=== PATIENT | female | born 1940 | race Caucasian/White ===

== ENCOUNTER 2016-11-22 10:41 | Emergency (ER) | payer OTHER ==
[2016-11-22] MEDS ORDERED: TYLENOL PO ONE (10:57)
[2016-11-22] MEDS ORDERED: DUONEB (A & A) INH ONE (10:57)
--- NOTE | 2016-11-22 10:58 | PROVIDER DOCUMENTATION ---
HPI-Head Injury - General Stated Complaint: FALL ON PORCH CUT ON FOREHEAD Time Seen by Provider: 11/22/16 10:54 Source: patient Allergies/Adverse Reactions: Patient Allergies Allergy/AdvReac Type Severity Reaction Status Date / Time allopurinol Allergy Severe HIVES Verified 04/04/14 20:49 fenofibrate nanocrystallized Allergy Severe HIVES Verified 04/04/14 20:49 * [From Tricor] fenofibrate,micronized * Allergy Severe HIVES Verified 04/04/14 20:49 [From Tricor] morphine Allergy Severe HIVES Verified 04/04/14 20:49 Penicillins Allergy Severe HIVES Verified 04/04/14 20:49 rosuvastatin calcium * Allergy Severe kidney Verified 04/04/14 20:49 [From Crestor] failure aspirin [From Percodan] AdvReac Severe syncope Verified 04/04/14 20:49 hydromorphone HCl * AdvReac Severe hallucinati Verified 04/04/14 20:49 [From Dilaudid] ons oxycodone HCl * AdvReac Severe syncope Verified 04/04/14 20:49 [From Percodan] oxycodone terephthalate * AdvReac Severe syncope Verified 04/04/14 20:49 [From Percodan] atorvastatin calcium * AdvReac kidney Verified 04/05/14 01:40 [From Lipitor] failure Home Medications: Home Medication List Medication Instructions Recorded Confirmed Last Taken Type Alprazolam [Xanax] 0.5 mg PO TID PRN 05/03/14 05/03/14 Unknown History Calcitriol [Rocaltrol] 0.25 microgm PO EVERY OTHER DAY 05/03/14 05/03/14 Unknown History Calcium Carbonate [Tums Calcium 300 mg PO DAILY 05/03/14 05/03/14 Unknown History For Life] Citalopram [Celexa] 20 mg PO DAILY 05/03/14 05/03/14 Unknown History Clotrimazole [Mycelex Kojo] 10 mg .SEE ORDER TID 05/03/14 05/03/14 Unknown History Digoxin [Lanoxin] 125 mcg PO DAILY 05/03/14 05/03/14 Unknown History Febuxostat [Uloric] 40 mg PO DAILY 05/03/14 05/03/14 Unknown History Ferrous Gluconate [Fergon] 240 mg PO DAILY 05/03/14 05/03/14 Unknown History Hydrocodone/Acetaminophen [[place] 1 each PO Q4H PRN 05/03/14 05/03/14 Unknown History 7.5-325 Tablet] Insulin Detemir [Levemir] 20 unit SQ DAILY 05/03/14 05/03/14 Unknown History Insulin Lispro [Humalog] 8 unit SUBQ DIRECTED 05/03/14 05/03/14 Unknown History Ipratropium [place] Neb [Atrovent 0.5 mg INH RTQ6H 05/03/14 05/03/14 Unknown History Neb] Levothyroxine Sodium [Synthroid] 175 mcg PO DAILY 05/03/14 05/03/14 Unknown History Metoprolol [Lopressor] 25 mg PO BID 05/03/14 05/03/14 Unknown History Mirtazapine [Remeron] 15 mg PO HS 05/03/14 05/03/14 Unknown History Omeprazole [Prilosec] 20 mg PO DAILY@0700 05/03/14 05/03/14 Unknown History Polyethylene Glycol 3350 [Miralax] 17 gm PO DAILY 05/03/14 05/03/14 Unknown History Alprazolam [Xanax] 0.5 mg PO Q8H PRN PRN #90 tablet 05/08/14 Unknown Rx Baclofen 10 mg PO QHS #30 tablet 05/08/14 Unknown Rx Calcitriol [Rocaltrol] 0.25 mcg PO BID #0 capsule 05/08/14 Unknown Rx Citalopram [Celexa] 20 mg PO DAILY #30 tablet 05/08/14 Unknown Rx Colchicine [Colcrys] 0.6 mg PO BID #60 tablet 05/08/14 Unknown Rx Digoxin [Lanoxin] 125 mcg PO DAILY #35 tablet 05/08/14 Unknown Rx Febuxostat [Uloric] 40 mg PO DAILY #30 tablet 05/08/14 Unknown Rx Hydrocodone/APAP 7.5 mg/325 mg 1 each PO TID PRN PRN #90 tablet 05/08/14 Unknown Rx [[place]-7.5] Insulin Detemir [Levemir Flexpen] 25 unit SQ DAILY #3 ml 05/08/14 Unknown Rx Ipratropium [place] Neb [Atrovent 0.5 mg INH RTQ4H #0 neb 05/08/14 Unknown Rx Neb] Levofloxacin [Levaquin] 500 mg PO DAILY #3 tablet 05/08/14 Unknown Rx Levothyroxine Sodium [Synthroid] 175 mcg PO DAILY #30 tablet 05/08/14 Unknown Rx Metoprolol [Lopressor] 25 mg PO BID #60 tablet 05/08/14 Unknown Rx Mirtazapine 7.5 mg PO QHS #15 tablet 05/08/14 Unknown Rx Omeprazole [Prilosec] 20 mg PO DAILY@0700 #30 capsule 05/08/14 Unknown Rx - History of Present Illness-Head Injury Nature of Presenting Problem: patient is a 76 y/o F that presents with puncture wound to left brow after tripping this am and falling forward hitting the left side of head. Denies loc, no neck or back pain. Head Injury Location: reports: temporal (left) Other injuries associated with incident:: reports: none Quality of Pain: reports: dull Severity: reports: mild Onset/Duration: reports: abrupt, just prior to arrival Timing: reports: improving Method of Injury: reports: direct blow, fell Any recent trauma/injury?: reports: none Loss of Consciousness: no loss of consciousness Modifying Factors: improves with: nothing Injury Associated Symptoms: reports: headaches, puncture wound. denies: back/ neck pain, chest pain, diaphoresis, dizziness, vomiting, weakness, trouble walking Locality of Occurance: Home Similar Symptoms Previously?: No Recently seen or treated by another doctor?: No Review of Systems - Adult - REVIEW OF SYSTEMS - ADULT Constitutional: denies: chills, fever Eyes: denies: decreased vision, blurred vision, double vision Ears, Nose, Mouth & Throat: denies: ear discharge, ear pain, sinus problem, throat pain, throat swelling Cardiovascular: denies: chest pain, palpitations, syncope Respiratory: denies: cough, shortness of breath, wheezing Gastrointestinal: denies: abdominal pain, diarrhea, nausea, vomiting Genitourinary: reports: no symptoms reported Musculoskeletal: denies: bone pain, joint pain, neck pain Integumentary: reports: see HPI Neurological: reports: no symptoms reported Psychiatric: reports: no symptoms reported Endocrine: reports: no symptoms reported Hematologic/Lymphatic: reports: no symptoms reported Allergic/Immunologic: reports: no symptoms reported All Other Systems: Reviewed and Negative Past History - Adult - PAST MEDICAL HISTORY-ADULT Review of Records: reports: Old Records Reviewed, Nursing Assessment Review, Medications Reviewed Cardiovascular: reports: A-Fib, CHF, HTN Respiratory: reports: COPD Genitourinary: reports: dialysis, kidney disease Endocrine/Immune: reports: Diabetes, thyroid disorder Other Conditions: reports: denies history - PRIOR SURGERIES/PROCEDURES Surgical/Procedure History: reports: cholecystectomy, hysterectomy, , back/neck - IMMUNIZATION STATUS Childhood Immunizations: See Nurse Assessment Flu Vaccine: See Nurse Assessment - FAMILY HISTORY Family History: reviewed, not pertinent - SOCIAL HISTORY Smoking: non-smoker Living Situation: family Physical Exam- Neurological - Physical Exam-Neuro Initial Vital Signs Reviewed: Yes General Appearance: alert, no apparent distress Eye Exam: bilateral eye: normal inspection, PERRL HENMT: moist mucous membranes, normal ENT inspection, TMs normal Head Injury: lacerations. negative: contusions, raccoon eyes, tenderness Neck: non-tender, full range of motion, normal inspection. 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 Exam: normal hearing, normal speech, PERRL Motor/Sensory: no motor deficit, no sensory deficit Neurologic: grossly normal, no motor/sensory deficits Integumentary: warm/dry, other (.5cm puncture wound to left brow) Psych/Mental Status: normal mood/affect, normal thought content, normal thought process, oriented x 3 - Glascow Coma Scale Best Eye Response: (4) open spontaneously Best Verbal Response: (5) oriented Best Motor Response: (6) obeys commands Total Glascow Score: 15 Progress - PLAN OF CARE/RESULTS Progress/Plan/Lab Results: plan of care-labs, meds, ct scans, breathing tx Vital Signs Temp Pulse Resp BP Pulse Ox 11/22/16 12:23 82 160/73 98 11/22/16 11:10 80 160/73 96 11/22/16 10:52 98 F 80 20 160/73 90 L allopurinol Allergy (Severe, Verified 04/04/14 20:49) HIVES fenofibrate nanocrystallized * [From Tricor] Allergy (Severe, Verified 04/04/14 20:49) HIVES fenofibrate,micronized * [From Tricor] Allergy (Severe, Verified 04/04/14 20:49) HIVES morphine Allergy (Severe, Verified 04/04/14 20:49) HIVES Penicillins Allergy (Severe, Verified 04/04/14 20:49) HIVES rosuvastatin calcium * [From Crestor] Allergy (Severe, Verified 04/04/14 20:49) kidney failure aspirin [From Percodan] Adverse Reaction (Severe, Verified 04/04/14 20:49) syncope hydromorphone HCl * [From Dilaudid] Adverse Reaction (Severe, Verified 04/04/14 20:49) hallucinations oxycodone HCl * [From Percodan] Adverse Reaction (Severe, Verified 04/04/14 20: 49) syncope oxycodone terephthalate * [From Percodan] Adverse Reaction (Severe, Verified 20:49) syncope atorvastatin calcium * [From Lipitor] Adverse Reaction (Verified 04/05/14 01:40) kidney failure Alprazolam [Xanax] 0.5 mg PO TID PRN 05/03/14 Calcitriol [Rocaltrol] 0.25 microgm PO EVERY OTHER DAY 05/03/14 Calcium Carbonate [Tums Calcium For Life] 300 mg PO DAILY 05/03/14 Citalopram [Celexa] 20 mg PO DAILY 05/03/14 Clotrimazole [Mycelex Kojo] 10 mg .SEE ORDER TID 05/03/14 Digoxin [Lanoxin] 125 mcg PO DAILY 05/03/14 Febuxostat [Uloric] 40 mg PO DAILY 05/03/14 Ferrous Gluconate [Fergon] 240 mg PO DAILY 05/03/14 Hydrocodone/Acetaminophen [[place] 7.5-325 Tablet] 1 each PO Q4H PRN 05/03/14 Insulin Detemir [Levemir] 20 unit SQ DAILY 05/03/14 Insulin Lispro [Humalog] 8 unit SUBQ DIRECTED 05/03/14 Ipratropium [place] Neb [Atrovent Neb] 0.5 mg INH RTQ6H 05/03/14 Levothyroxine Sodium [Synthroid] 175 mcg PO DAILY 05/03/14 Metoprolol [Lopressor] 25 mg PO BID 05/03/14 Mirtazapine [Remeron] 15 mg PO HS 05/03/14 Omeprazole [Prilosec] 20 mg PO DAILY@0700 05/03/14 Polyethylene Glycol 3350 [Miralax] 17 gm PO DAILY 05/03/14 Alprazolam [Xanax] 0.5 mg PO Q8H PRN PRN #90 tablet 05/08/14 Baclofen 10 mg PO QHS #30 tablet 05/08/14 Calcitriol [Rocaltrol] 0.25 mcg PO BID #0 capsule 05/08/14 Citalopram [Celexa] 20 mg PO DAILY #30 tablet 05/08/14 Colchicine [Colcrys] 0.6 mg PO BID #60 tablet 05/08/14 Digoxin [Lanoxin] 125 mcg PO DAILY #35 tablet 05/08/14 Febuxostat [Uloric] 40 mg PO DAILY #30 tablet 05/08/14 Hydrocodone/APAP 7.5 mg/325 mg [[place]-7.5] 1 each PO TID PRN PRN #90 tablet 11/16 Insulin Detemir [Levemir Flexpen] 25 unit SQ DAILY #3 ml 05/08/14 Ipratropium [place] Neb [Atrovent Neb] 0.5 mg INH RTQ4H #0 neb 05/08/14 Levofloxacin [Levaquin] 500 mg PO DAILY #3 tablet 05/08/14 Levothyroxine Sodium [Synthroid] 175 mcg PO DAILY #30 tablet 05/08/14 Metoprolol [Lopressor] 25 mg PO BID #60 tablet 05/08/14 Mirtazapine 7.5 mg PO QHS #15 tablet 05/08/14 Omeprazole [Prilosec] 20 mg PO DAILY@0700 #30 capsule 05/08/14 Laboratory 11/22/16 11/22/16 11/22/16 12:05 12:05 12:05 WBC RBC Hgb Hct MCV MCH MCHC RDW Std Deviation Plt Count MPV Immature Gran % (Auto) Neut % (Auto) Lymph % (Auto) Grady % (Auto) Eos % (Auto) Baso % (Auto) Immature Gran # (Auto) Neut # (Auto) Lymph # (Auto) Grady # (Auto) Eos # (Auto) Baso # (Auto) PT 10.9 INR 1.03 PTT (Actin FS) 26.7 Sodium 132 L Potassium 4.8 Chloride 93 L Carbon Dioxide 25 Anion Gap 14 BUN 37 H Creatinine 3.1 H Estimated GFR/1.73 m2 15 BUN/Creatinine Ratio 12 Glucose 371 H Calculated Osmolality 288 Calcium 8.3 L Total Bilirubin 0.25 AST 23 ALT 23 Alkaline Phosphatase 167 H Creatine Kinase 85 Troponin T 0.048 Total Protein 6.2 L Albumin 3.6 Globulin 2.6 Albumin/Globulin Ratio 1.4 11/22/16 12:05 WBC 4.03 L RBC 3.43 L Hgb 10.5 L Hct 32.8 L MCV 95.6 MCH 30.6 MCHC 32.0 L RDW Std Deviation 13.0 Plt Count 181 MPV 10.1 Immature Gran % (Auto) 1.2 H Neut % (Auto) 61.1 Lymph % (Auto) 26.3 Grady % (Auto) 7.7 Eos % (Auto) 3.2 Baso % (Auto) 0.5 Immature Gran # (Auto) 0.05 H Neut # (Auto) 2.46 Lymph # (Auto) 1.06 L Grady # (Auto) 0.31 Eos # (Auto) 0.13 Baso # (Auto) 0.02 PT INR PTT (Actin FS) Sodium Potassium Chloride Carbon Dioxide Anion Gap BUN Creatinine Estimated GFR/1.73 m2 BUN/Creatinine Ratio Glucose Calculated Osmolality Calcium Total Bilirubin AST ALT Alkaline Phosphatase Creatine Kinase Troponin T Total Protein Albumin Globulin Albumin/Globulin Ratio Orders Category Date Time Status Cardiac Monitoring DIRECTED Care 11/22/16 10:55 Active Finger Stick Blood Sugar (ED) DIRECTED Care 11/22/16 10:55 Active Oxygen Therapy- ED Nursing DIRECTED Care 11/22/16 10:55 Active Saline Loc NOW Care 11/22/16 10:55 Active CHEST-2 VIEWS [RAD] Stat Exams 11/22/16 12:30 Taken HEAD/C-SPINE W/O CONTRAST [CT] Stat Exams 11/22/16 10:56 Taken LUMBAR SPINE W/O CONTRAST [CT] Stat Exams 11/22/16 10:56 Draft PELVIS W/O CONTRAST [CT] Stat Exams 11/22/16 10:57 Draft CBC WITH ELECTRONIC DIFF [HEME] Stat Lab 11/22/16 12:05 Completed CK PROFILE [SP CHEM] Stat Lab 11/22/16 12:05 Completed COMPREHENSIVE METABOLIC PANEL [CHEM] Stat Lab 11/22/16 12:05 Completed PROTIME WITH INR [COAG] Stat Lab 11/22/16 12:05 Completed PTT [COAG] Stat Lab 11/22/16 12:05 Completed TROPONIN T Stat Lab 11/22/16 12:05 Completed Acetaminophen [Tylenol] Med 11/22/16 10:57 Discontinued 650 mg PO NOW ONE Albuterol 2.5MG/Ipratrop 0.5MG [Duoneb (A & A)] Med 11/22/16 10:57 Discontinued 3 ml INH NOW ONE Aerosol Treatments Routine Oth 11/22/16 10:57 Active Aerosol Treatments Stat Oth 11/22/16 10:57 Active Pulse Oximetry Stat Oth 11/22/16 10:55 Active EKG [EKG] Stat Ther 11/22/16 10:55 Draft - EKG 1 Time of EKG reading by physician:: 12:23 EKG Read and Signed by:: John Taylor EKG Interpretation (*Must complete 3 of following elements*): Abnormal Rate: 79 Rhythm: NSR Maidens: normal QRS: normal DC Interval: normal ST Wave: non-specific ST changes - XRAY 1 XRAY Study: Chest Impression: Normal XRAY Interpretation: nad - CT/MRI 1 CT Study: Cervical Spine, Head Impression: Normal CT Results: nad 2 CT Study: Lumbar Spine Impression: Normal CT Results: nad 3 CT Study: Pelvis Impression: Normal CT Results: nad Departure - Departure Time of Disposition Order: 13:02 DIAGNOSIS: Puncture wound Fall on same level Qualifiers: Encounter type: initial encounter Qualified Code(s): W18.30XA - Fall on same level, unspecified, initial encounter Head injury, acute, without loss of consciousness Qualifiers: Encounter type: initial encounter Qualified Code(s): S09.90XA - Unspecified injury of head, initial encounter Low back pain Qualifiers: Chronicity: acute Back pain laterality: midline Sciatica presence: without sciatica Qualified Code(s): M54.5 - Low back pain Disposition: HOME 01 Certified Medical Emergency: Emergent Condition: Stable Additional Instructions: ED Follow Up Instructions: You have been treated by a care provider in the Emergency Department. These instructions are being provided to you so you can have an understanding of how to care for yourself upon discharge. Upon discharge from the Emergency Department, you are responsible for making arrangements for follow-up care by a physician of your choice. Take all prescribed medications as directed. Return to the Emergency Department immediately for any new or worsening symptoms. You may call the Physician Referral phone number at [phone] to obtain a list of Physicians who are taking new patients. Referrals: None,PCP [Primary Care Provider] - Mary Iqbal MD [STAFF PHYSICIAN] - Call for Appoint. 1-2days Instructions: Fall Prevention and Home Safety, [id number], Head Injury, Adult , Back Pain, Adult, Puncture Wound, [id number] Attestation - Scribe Verification/Attestation Scribe:: Landon Tomlinson Acting as Scribe for:: John Taylor Scribe documention review:: This chart was documented by a scribe and accurately reflects the service the provider performed and the decisions made by the provider. Physician Attestation - Physician Attestation I, the provider, attest to the following statement:: John Taylor Physician documentation Attestation:: This documentation recorded by the scribe accurately reflects the service I personally performed and the decisions made by me.
[2016-11-22 12:20] LABS: MANUAL DIFF NEEDED? NO
[2016-11-22 12:24] LABS: BASO% 0.5 % (0.0-0.8); EOS# 0.13 X1000 (0.0-0.7); EOS% 3.2 % (0.0-10.0); HEMATOCRIT 32.8 % (37.0-47.0); HEMOGLOBIN 10.5 g/dL (12.0-16.0); IMM GRAN# 0.05 X1000 (0.0-0.04); IMM GRAN% 1.2 % (0.0-0.5); LYMPH# 1.06 X1000 (1.2-3.4); LYMPH% 26.3 % (20.5-51.1); MCH 30.6 PG (27-31); MCV 95.6 FL (81-99); MONO# 0.31 X1000 (0.11-0.59); MONO% 7.7 % (1.7-9.3); MPV 10.1 FL (7.4-10.4); NEUT% 61.1 % (42.2-75.2); PLT 181 X1000 (130-400); RBC 3.43 XMIL (4.2-5.4)
[2016-11-22 12:31] LABS: INR 1.03; PROTIME 10.9 Seconds (9.2-11.7); PTT 26.7 Seconds (22.0-36.0)
[2016-11-22 12:40] LABS: ALBUMIN 3.6 g/dL (3.5-5.0); CALCIUM 8.3 mg/dL (8.8-10.2); POTASSIUM 4.8 mmol/L (3.5-5.1); TOTAL BILIRUBIN 0.25 mg/dL (0.20-1.00); TOTAL PROTEIN 6.2 g/dL (6.3-8.3)
--- NOTE | 2016-11-22 12:52 | EKG Report ---
Test Performed on : 11/22/2016 12:23:00 PM Test Reason : AMS Blood Pressure : / mmHG Vent. Rate : 079 BPM Atrial Rate : 079 BPM P-R Int : 200 ms QRS Dur : 082 ms QT Int : 396 ms P-R-T Axes : 084 048 028 degrees QTc Int : 454 ms Normal sinus rhythm. Cannot rule out Anterior infarct (cited on or before 03-MAY-2014) Abnormal ECG When compared with ECG of 03-MAY-2014 18:20, Sinus rhythm. has replaced Junctional rhythm. ST no longer depressed in Inferior leads ST no longer depressed in Anterior leads T wave inversion no longer evident in Inferior leads T wave inversion no longer evident in Anterolateral leads QT has lengthened Unconfirmed Result
--- NOTE | 2016-11-22 13:00 | Diag Imaging Result Document ---
PROCEDURE NAME: LUMBAR SPINE W/O CONTRAST - 11/22/2016 CT LUMBAR SPINE, 11/22/2016: A CT dose reduction protocol was used. COMPARISON: None. FINDINGS: Alignment is anatomic. There is severe multilevel facet fusion, notably all the levels from L3-S1. There is heavy facet degeneration at the levels above this. There is heavy disk degeneration at L2-L3 with vacuum disk phenomenon. Bones are osteopenic. No severe central canal stenosis. There is heavy vascular calcification of the aorta. 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 There is severe peripheral vascular disease. IMPRESSION: Severe chronic changes. No acute disease. [facility]
--- NOTE | 2016-11-22 13:00 | Diag Imaging Result Document ---
PROCEDURE NAME: PELVIS W/O CONTRAST - 11/22/2016 CT PELVIS, 11/22/2016: A CT dose reduction protocol was used. COMPARISON: None. FINDINGS: No evidence of fracture or subluxation. There is moderate degeneration of the hip joints with acetabular osteophytes and superior joint space narrowing. There is significant fusion of lower lumbar spine facet joints. The sacroiliac joints are preserved. There is heavy peripheral vascular disease, with heavy calcification of all the femoral arteries and pelvic arteries. Soft tissues are otherwise clear. IMPRESSION: No acute injury. [facility]
[2016-11-22] MEDS ORDERED: HUMULIN R IV ONE (13:02)
--- NOTE | 2016-11-22 13:02 | Diag Imaging Result Document ---
PROCEDURE NAME: HEAD/C-SPINE W/O CONTRAST - 11/22/[address], 11/22/2016: A CT dose reduction protocol was used. COMPARISON: 05/03/2014. FINDINGS: The ventricles and sulci are normal in size and contour. No intracranial mass or hemorrhage. The skull is intact. There is some mild sinusitis of some ethmoid and maxillary sinuses. IMPRESSION: Mild sinusitis. No acute disease. CT CERVICAL SPINE, 11/22/2016: A CT dose reduction protocol was used. COMPARISON: None. FINDINGS: Alignment is anatomic. No evidence of fracture. Disk spaces are fairly well preserved although there are some small degenerative osteophytes. There is severe, multilevel fusion of the facet joints involving most all of the facet joints. There is sparing at C3-C4 although there is heavy degeneration here. Soft tissues are grossly clear. There is vascular disease of the carotid bulbs. IMPRESSION: Advanced chronic changes with fusion of numerous facet joints. No acute injury. [facility]
--- NOTE | 2016-11-22 13:35 | Diag Imaging Result Document ---
PROCEDURE NAME: CHEST-2 VIEWS - 11/22/2016 FRONTAL AND LATERAL CHEST, TWO VIEWS: COMPARISON: 05/03/2014. FINDINGS: There is a left subclavian Port-A-Cath. No pneumothorax. The right hemidiaphragm is elevated. The heart is not enlarged. There is a tiny right effusion. No contusions or pneumothoraces. No compressed thoracic vertebra. IMPRESSION: No injury.
[2016-11-22 14:58] VITALS: BP 167/92
== END 2016-11-22 15:30 | disposition home or self-care (01) ==
LOC: EDBD → ED 10:41
DX: S09.90XA Unspecified injury of head, initial encounter (principal); S01.132A Puncture wound without foreign body of left eyelid and periocular area, initial encounter; M54.5 Low back pain; R51 Headache; I48.91 Unspecified atrial fibrillation; J44.9 Chronic obstructive pulmonary disease, unspecified; I12.0 Hypertensive chronic kidney disease with stage 5 chronic kidney disease or end stage renal disease; N18.6 End stage renal disease; Z79.899 Other long term (current) drug therapy; R94.31 Abnormal electrocardiogram [ECG] [EKG]; W01.0XXA Fall on same level from slipping, tripping and stumbling without subsequent striking against object, initial encounter; Z99.2 Dependence on renal dialysis; E11.9 Type 2 diabetes mellitus without complications; E07.9 Disorder of thyroid, unspecified; Z79.4 Long term (current) use of insulin
CPT/HCPCS: 70450; 71020; 72125; 72131; 72192; 80053; 82550; 82948; 84484; 85025; 85610; 85730; 93005; 94640; 94761

== ENCOUNTER 2019-01-02 19:21 | Inpatient (IN) ==
--- NOTE | 2019-01-02 20:44 | Diag Imaging Result Doc PS360 ---
EXAM: CHEST-1 VIEW HISTORY: sob TECHNIQUE: Chest single view COMPARISON: 09/09/2017 FINDINGS: Poor inspiratory effort. Heart is borderline mildly prominent. There is mild vascular distention. Tiny right pleural effusion. No change in the left subclavian portacatheter. A vascular stent overlies the upper right chest. IMPRESSION: Mild pulmonary edema. Electronically signed by Norman Dubose 01/02/2019 8:41 PM
[2019-01-02 21:29] LABS: BASO# 0.02 X1000 (0.0-0.2); BASO% 0.3 % (0.0-0.8); EOS# 0.04 X1000 (0.0-0.7); EOS% 0.6 % (0.0-10.0); HEMATOCRIT 36.7 % (37.0-47.0); HEMOGLOBIN 11.3 g/dL (12.0-16.0); IMM GRAN# 0.05 X1000 (0.0-0.04); IMM GRAN% 0.7 % (0.0-0.5); LYMPH# 0.97 X1000 (1.2-3.4); LYMPH% 13.9 % (20.5-51.1); MCH 30.5 PG (27-31); MCHC 30.8 g/dL (33-37); MCV 99.2 FL (81-99); MONO# 0.54 X1000 (0.11-0.59); MONO% 7.7 % (1.7-9.3); MPV 10.5 FL (7.4-10.4); NEUT# 5.35 X1000 (1.4-6.5); NEUT% 76.8 % (42.2-75.2); PLT 229 X1000 (130-400); RDW 17.9 % (11.5-14.5); WBC 6.97 X1000 (4.8-10.8)
[2019-01-02 22:09] LABS: ALB/GLOB RATIO 1.6; ALBUMIN 4.4 g/dL (3.5-5.0); CALCIUM 7.5 mg/dL (8.8-10.2); POTASSIUM 4.6 mmol/L (3.5-5.1); TOTAL BILIRUBIN 0.27 mg/dL (0.20-1.00); TOTAL PROTEIN 7.1 g/dL (6.3-8.3)
[2019-01-02 22:11] LABS: CREATININE 5.9 mg/dL (0.5-0.9)
[2019-01-02 23:56] LABS: URINE SOURCE CLEAN CATCH
[2019-01-02 23:58] LABS: BILIRUBIN URINE NEGATIVE (NEGATIVE); BLOOD URINE SMALL (NEGATIVE); COLOR BROWN; GLUCOSE URINE NEGATIVE (NEGATIVE); KETONE URINE NEGATIVE (NEGATIVE); LEUKOCYTES URINE LARGE (NEGATIVE); NITRITE URINE NEGATIVE (NEGATIVE); PH URINE 6.5; PROTEIN URINE 200 mg/dL (NEGATIVE); SP GRAVITY URINE 1.009; TURBIDITY URINE TURBID (CLEAR); UROBILINOGEN URINE NORMAL (NORMAL)
[2019-01-03 00:01] LABS: UR EPITHELIAL CELLS >10 /HPF (<10); URINE BACTERIA 4+ /HPF; URINE WBC TNTC /HPF (<10)
[2019-01-03] MEDS ORDERED: LEVAQUIN 250 MG/D5W 250 MG/50 ML IVPB IV ONE (00:10)
[2019-01-03] MEDS ORDERED: DEMEROL IV ONE (00:16)
[2019-01-03] MEDS ORDERED: PHENERGAN IM ONE (00:17)
--- NOTE | 2019-01-03 03:37 | HISTORY AND PHYSICAL ---
PRIMARY CARE PHYSICIAN: Dr. Adams. CHIEF COMPLAINT: Chest pain, back pain, not feeling well. HISTORY OF PRESENTING ILLNESS: A 78-year-old female with a history of end-stage renal disease, on renal dialysis Tuesday, Tuesday, Tuesday, chronic low back pain, hypertension, hyperlipidemia, who presented to emergency department with 1-day history of having chest pain. She states that it felt pressure-like and she did not feel well. She was also complaining of having back pain. She states that she had several back surgeries, and is having a lot of back discomfort. She was evaluated in the emergency department. She also had laboratories done, which did show mildly elevated troponin's. Her case was discussed with Cardiology, who recommended the patient be admitted for further evaluation and management. At the time of my examination, patient denied any headache, fever, chills, hemoptysis, melena, but complained of back pain and chest pain. PAST MEDICAL HISTORY: Chronic low back pain, end-stage renal disease, hypertension, hyperlipidemia. PAST SURGICAL HISTORY: Back surgery, knee surgery, hysterectomy, cholecystectomy, cataract surgery. ALLERGIES: Penicillin, morphine, allopurinol, fenofibrate. CURRENT MEDICATIONS: Include Norvasc 5 mg p.o. daily, doxepin 10 mg p.o. daily, folic acid 1 tablet daily, gabapentin 100 mg p.o. daily, Novolin 70/30, dose not known, isosorbide mononitrate 30 mg daily, levothyroxine 175 mcg p.o. daily, metoprolol 50 mg p.o. daily, temazepam 15 mg p.o. at bedtime. SOCIAL HISTORY: She denies any history of smoking, alcohol, or illicit drug use. FAMILY HISTORY: No history of coronary disease. REVIEW OF SYSTEMS: Fourteen-point review of systems as in HPI. Other systems negative. PHYSICAL EXAMINATION: GENERAL: Cooperative, friendly female. She is resting comfortably now. VITAL SIGNS: Temperature 97.5 degrees, pulse 79, respirations 16, blood pressure 92/48. HEENT: Atraumatic, normocephalic. Extraocular movements intact. PERRLA. NECK: No masses. CHEST: Clear to auscultation. CARDIOVASCULAR: Regular rate and rhythm. ABDOMEN: Soft. Positive bowel sounds. EXTREMITIES: Trace edema. NEUROLOGIC: She is awake, alert, oriented x3. GENITOURINARY: No bladder distention. SKIN: Warm. LABORATORIES AND STUDIES: WBC 6.97, hemoglobin 11.3, hematocrit 36.7, platelets 229,000. Sodium 139, potassium 4.6, chloride 96, CO2 is 21, BUN is 27, creatinine is 5.9. Glucose 71. ProBNP is 8694, troponin 0.122. Chest x-ray shows mild pulmonary edema. ASSESSMENT: A 78-year-old female with a history of chronic low back pain, end-stage renal disease, hypertension, hyperlipidemia, who presented to emergency department with a 1-day history of having chest pain and back pain. She was evaluated in the emergency department. She had laboratories done, which did show mildly elevated troponin. Case was discussed with Cardiology, who recommended the patient be admitted for further evaluation and management. 1. Chest pain. 2. Elevated troponin in setting of end-stage renal disease. 3. Renal end-stage renal disease, on renal dialysis Tuesday, Tuesday, Tuesday, 4. Chronic low back pain. 5. Suspected urinary tract infection. 6. Hypertension. PLAN: 1. We will admit patient to medical floor with telemetry. 2. Continue with cardiac workup. Check EKG, serial cardiac enzymes. Have patient continue on aspirin. We will use sublingual nitroglycerin p.r.n. chest pain. 3. We will consult Cardiology. 4. We will consult Nephrology for dialysis. 5. Give patient adequate pain control. 6. We will check urine cultures. Start patient on IV empiric antibiotics. 7. We will monitor blood pressure. Resume antihypertensive agent. 8. Put patient on DVT prophylaxis with SCDs. 9. We will continue to follow and reassess, make further recommendation based on patient's clinical course. cc: Alexander Pillai MD
[2019-01-03] MEDS: HUMULIN R SUBQ SCH ×4 (06:19→21:18)
[2019-01-03] MEDS ORDERED: NS 2,000 ML MISC PRN (06:41)
[2019-01-03] MEDS ORDERED: HEPARIN IV PRN (06:41)
--- NOTE | 2019-01-03 07:20 | EKG Report ---
Test Performed on : 01/02/2019 7:44:12 PM Test Reason : sob Blood Pressure : / mmHG Vent. Rate : 083 BPM Atrial Rate : 038 BPM P-R Int : 000 ms QRS Dur : 092 ms QT Int : 408 ms P-R-T Axes : 000 022 037 degrees QTc Int : 479 ms Atrial fibrillation. with a competing junctional pacemaker. Low voltage QRS Septal infarct (cited on or before 03-MAY-2014) Abnormal ECG When compared with ECG of 09-SEP-2018 12:08, Atrial fibrillation. has replaced Sinus rhythm. Questionable change in initial forces of Anteroseptal leads Nonspecific T wave abnormality now evident in Anterior leads Unconfirmed Result
--- NOTE | 2019-01-03 08:53 | NEPHROLOGY CONSULTATION ---
DATE: 01/03/2019 REASON FOR ADMISSION: Chest pain and back pain with increased work of breathing. CONSULTING PHYSICIAN: Dr. Alexander Pillai. REASON FOR CONSULTATION: End-stage renal disease with assistance with medical management. HISTORY OF PRESENT ILLNESS: Ms Rivera is a 78-year-old white female with known history to our outpatient services for end-stage renal disease with dialysis on Tuesday, Tuesday, Tuesday. The patient had subsequently been gone for approximately 2 to 3 weeks visiting her sister in [place]. During that period of time, Dr. Marquez had received a phone call from a title camera operator indicating that she had been admitted to their hospital for atrial fibrillation with rapid ventricular response, increased work of breathing and fluid volume overload. The patient states that she was in and out of the hospital twice while she was up there. She went to her dialysis clinic appointment yesterday upon arrival to assist with her fluid volume overload. She stayed for her full entire time after her treatment. She stated that she had pressure- like chest discomfort. She complains of chronic back pain secondary to having several back surgeries. She was evaluated in the emergency department after presentation where she was found to have elevated troponins, more than likely secondary to her dialysis treatments. She remains in atrial fibrillation, irregular heart pattern. She complains of increased work of breathing. She denies nausea, vomiting, or diarrhea. States that she has no chest pain at this time except with deep inspiration. She denies fever or chills. Positive back pain. No diarrhea. Denies headache. No hemoptysis, hematochezia or hematuria. No melena. PAST MEDICAL HISTORY: End-stage renal disease with hemodialysis on Tuesday, Tuesday, Tuesday. Hypertension, hyperlipidemia, anemia of chronic disease, chronic low back pain. She wears home O2. The patient is hypothyroid and diabetic. PAST SURGICAL HISTORY: Back surgery, knee surgery, hysterectomy, cholecystectomy, cataract surgery. She has a fistula with previous tunneled dialysis catheter. SOCIAL HISTORY: She denies any history of smoking, alcohol or illicit drug use. FAMILY HISTORY: Negative for coronary artery disease and dialysis with renal disease. ALLERGIES: Listed as penicillin, morphine, allopurinol, fenofibrate. MEDICATIONS: Include Norvasc, doxepin, folic acid, gabapentin, NovoLog, isosorbide mononitrate, levothyroxine, metoprolol. She also is on a daily vitamin. She receives Rocaltrol and IV iron and Ferrlecit at the outpatient clinic as indicated by protocol. REVIEW OF SYSTEMS: Times 10 with pertinent positives listed above in the HPI. MOST RECENT VITAL SIGNS: Temperature 98.3 degrees, blood pressure 111/57, heart rate 65, respirations 18. She is currently on 3 L nasal cannula. Her last recorded saturation is 98%. She has only had 0 recorded in, 10 mL out. LABORATORY DATA: Sodium 139, potassium 4.6, chloride 96, CO2 21, BUN 27, creatinine 5.9, glucose 71, anion gap of 22, her calcium is 7.5, albumin of 4.4. The patient's AST is 45, ALT of 33. Troponin is 0.112. BNP 8694. White count 6.97, hemoglobin 11.3, hematocrit 36.7, with a platelet count of 229,000. Urinalysis shows turbid urine. She is positive for proteinuria, small hematuria, large leukocytes, WBCs are too numerous to count with positive 4+ bacteria. IMAGING: Chest x-ray completed this a.m. shows positive for mild pulmonary edema. PHYSICAL EXAMINATION: General: This is a 78-year-old white female, resting quietly on the side of the bed. She is sitting up secondary to having some feet cramp. She appears in mild distress. Skin: Warm and dry. HEENT: Normocephalic, atraumatic. Conjunctiva is pale. She has LUZMARIA. Mucous membranes are dry. Neck: Supple. Trachea midline. She has trace JVD. Cardiovascular: She is irregular irregular rate and rhythm. She is on the monitor. She appears to be in atrial fibrillation. The heart rate is ranging anywhere from 80 to 120. Lungs: The patient has wheezes with scattered rhonchi throughout. She remains on O2 supplementation, equal support. Abdomen: Large, obese, soft, nontender. Positive bowel sounds. Genitourinary: Not inspected. Minimal void with dialysis assist. Extremities: Trace to 1+ lower extremity edema though these are dependent with chronic venous stasis present. Neurological: She is alert and oriented x3. Integumentary: Skin is warm and dry without rashes or lesions. ASSESSMENT AND PLAN: 1. Chronic kidney disease stage 5D. The patient is due for her routine dialysis treatment today secondary to her fluid volume overload. We will dialyze the patient again today. She is to dialyze on a 2K bath. We will dialyze her for 3.5 hours in sequential mode with plan for dialysis again in the a.m. 2. Electrolytes and acid-base balance. These are acceptable with correction on dialysis. 3. Anemia. This is low but stable. 4. Chest pain. Patient does have elevated troponin in the setting of end-stage renal disease. Cardiology has been consulted. She remains in atrial fibrillation with irregular heart pattern, no rate controlled anywhere from 80 to 120s. I would like to thank you for allowing us to follow with this patient. Dictated by NATHALIA Davidson for Malcolm Marquez MD Face to face encounter, data reviewed, discussed with Negrita Villatoro on 01/03/19. I agree with the above assessment and plan of care. cc: NATHALIA Davidson MD Jagan Reddy, MD [facility]
--- NOTE | 2019-01-03 12:28 | CARDIOLOGY CONSULTATION ---
DATE: 01/03/2019 CHIEF COMPLAINT ON PRESENTATION: Diffuse pain involving the legs, back, arms, basically diffusely everywhere including the chest. HISTORY OF PRESENT ILLNESS: Ms Rivera is a 78-year-old female with a history of end-stage renal disease with dialysis on Tuesday, Tuesday, Tuesday. She comes in with diffuse body complaints, no exertional chest pain. She reports compliance with all of her dialysis. She is in an extreme amount of discomfort presently secondary to cramping throughout. She recently had a hospitalization up in [place] and was unable to give us any details on the hospital stay up there. She thinks she was seen by a heart doctor but she is not aware of any sort of interventions or treatments or really the extent of what happened in the hospital. PAST MEDICAL HISTORY: 1. Significant for end-stage renal disease. 2. Hypertension. 3. Hyperlipidemia. She has not followed with us in the office. She last had a cardiology consult in 2013. I do not see any sort of history of cardiac catheterizations or stress testing performed here. Her last echocardiogram was in April 2014, demonstrating a pericardial effusion, EF 65 to 70 percent. SOCIAL HISTORY: No tobacco, alcohol or illicit drugs. FAMILY HISTORY: No history of coronary disease. REVIEW OF SYSTEMS: A 10 system review of systems is negative except for those things mentioned in HPI. PHYSICAL EXAMINATION: Vital signs: She is afebrile, heart rate of 102, blood pressure 95/48. General: She is in no acute distress. HEENT: Oropharynx is moist. Normal dentition. Eye examination shows pink conjunctiva, white sclerae. Neck: No obvious thyromegaly or thyroid tenderness. Cardiovascular: She sounds to be in a regular rate and rhythm. She does not have any obvious murmurs. There is no S3. She has no lower extremity edema. Chest: Clear bilaterally. No increased work of breathing. Abdomen: Soft, nontender, nondistended. She has no obvious organomegaly. Skin: Warm and dry throughout without any rashes. Neurological: She is moving all extremities well. She has no lateralizing deficits. Psychiatric: She is alert and oriented. She is in a significant amount of discomfort related to cramping presently. DIAGNOSTIC DATA: Her most recent EKG appears to show atrial fibrillation, rate of 83 beats per minute. I do not have this on her previous EKGs over the last couple of presentations to this hospital. This EKG was reviewed by me. Her chest x-ray demonstrated mild pulmonary edema. Her lab data shows a white count of 6.9, her hematocrit is 36, her platelet count is 229,000. Her sodium is 139, potassium 4.6, BUN 27, creatinine is 5.9. Her proBNP is 8694. Her initial troponin was 0.112. ASSESSMENT: Ms Rivera is a 78-year-old female who presented with diffuse pain complaints. It seems like this may be new onset atrial fibrillation. PLAN: We will obtain records from [place]. We will refer her for an echocardiogram. She is in a significant amount of pain currently. This does not seem like it has an ACS type episode but we will ensure that she is on an aspirin. May proceed with stress testing in the near future. I would likely not pursue cardioversion at this point until we establish what happened during her recent hospitalization in [place]. Records have been requested. cc: MD Mu Cruz MD MTDD
[2019-01-03] MEDS ORDERED: NORCO-10 PO PRN (19:06)
[2019-01-03] MEDS: NORCO-10 PO PRN (19:37)
[2019-01-03] MEDS: ROBAXIN PO SCH (20:38)
[2019-01-03] MEDS: SINEQUAN PO SCH (20:38)
[2019-01-03] MEDS: NEURONTIN PO SCH (20:38)
[2019-01-03] MEDS: PLETAL PO SCH (20:38)
--- NOTE | 2019-01-03 23:12 | ECHO REPORT ---
ORDER DATE: 01/03/2019 MEASUREMENTS: Left ventricular internal diameter in diastole 3.3, left ventricular internal diameter in systole 2.7, septal thickness 1.2, posterior wall thickness 1.2, aortic root 3.0, left atrium 5.1. SUMMARY: 1. Technically difficult study due to limited acoustic window quality. Intravenous echo contrast agent. Operative time was utilized to enhance endocardial definition. 2. Mild sclerosis of trileaflet aortic valve demonstrated with adequate aortic valve opening evident. Peak gradient across aortic valve is 15 mmHg. There is trace aortic regurgitation. Moderate mitral annular calcification is demonstrated. There is also moderate sclerotic thickening of posterior mitral leaflet with reduced leaflet mobility. Mean gradient across mitral valve is approximately 2.5 mmHg with a heart rate of 100 beats per minute. Pressure half-time of 73 milliseconds indicating a mitral valve area of approximately 3.0 cm2. There is mild mitral regurgitation. Tricuspid valve was without evidence of structural abnormality while pulmonic valve was not well demonstrated. There is mild tricuspid regurgitation. The estimated systolic PA pressure by Doppler is 35 mmHg. The aortic root is normal in size. 3. Normal left ventricular chamber size with mild concentric left hypertrophy is suggested. Estimated left ventricular ejection fraction appears to be at least 60%. No regional wall motion abnormalities are evident. Left atrium is moderately enlarged. The right atrium is moderately enlarged. The right ventricle is normal in size with grossly preserved right ventricular systolic function. 4. No pericardial effusion. 5. Appearance of the inferior vena cava suggests normal central venous pressure. 6. Atrial fibrillation during study. cc: MD Jhon Townsend MD Jagan Reddy, MD
[2019-01-04] MEDS: HUMULIN R SUBQ SCH ×4 (06:07→22:29)
[2019-01-04] MEDS: PROTONIX PO SCH (06:14)
[2019-01-04] MEDS ORDERED: NS 2,000 ML MISC PRN (06:54)
[2019-01-04] MEDS ORDERED: TIGHT: 0.2 ML/HR FOR DIALYSIS MISC PRN (06:54)
[2019-01-04] MEDS ORDERED: HEPARIN IV PRN (06:54)
[2019-01-04 08:05] LABS: BASO# 0.04 X1000 (0.0-0.2); BASO% 0.5 % (0.0-0.8); EOS# 0.15 X1000 (0.0-0.7); EOS% 1.8 % (0.0-10.0); HEMATOCRIT 37.4 % (37.0-47.0); HEMOGLOBIN 11.7 g/dL (12.0-16.0); IMM GRAN# 0.08 X1000 (0.0-0.04); LYMPH# 1.09 X1000 (1.2-3.4); LYMPH% 13.1 % (20.5-51.1); MCH 31.4 PG (27-31); MCHC 31.3 g/dL (33-37); MCV 100.3 FL (81-99); MONO# 0.76 X1000 (0.11-0.59); MONO% 9.1 % (1.7-9.3); MPV 10.7 FL (7.4-10.4); NEUT# 6.19 X1000 (1.4-6.5); NEUT% 74.5 % (42.2-75.2); PLT 156 X1000 (130-400); RBC 3.73 XMIL (4.2-5.4); RDW 17.9 % (11.5-14.5); WBC 8.31 X1000 (4.8-10.8)
[2019-01-04 08:28] LABS: CALCIUM 7.4 mg/dL (8.8-10.2); POTASSIUM 4.2 mmol/L (3.5-5.1)
[2019-01-04 08:35] LABS: CREATININE 7.4 mg/dL (0.5-0.9)
[2019-01-04] MEDS: PLETAL PO SCH ×2 (08:50→21:25)
[2019-01-04] MEDS: ROBAXIN PO SCH ×2 (08:50→21:25)
[2019-01-04] MEDS: NEPHRO-VITE PO SCH (08:51)
[2019-01-04] MEDS: NEURONTIN PO SCH ×2 (08:51→21:25)
[2019-01-04] MEDS: TOPROL XL PO SCH (08:51)
[2019-01-04] MEDS: IMDUR PO SCH (08:51)
[2019-01-04] MEDS: SYNTHROID PO SCH (08:51)
[2019-01-04] MEDS ORDERED: PLAVIX PO SCH (09:00)
[2019-01-04] MEDS ORDERED: NORVASC PO SCH (09:00)
[2019-01-04] MEDS: NORCO-10 PO PRN ×2 (11:25→19:13)
--- NOTE | 2019-01-04 14:27 | NEPHROLOGY PROGRESS NOTE ---
DATE: 01/04/2019 TIME SEEN: 0645. SUBJECTIVE: Ms. Rivera is resting quietly in bed. States that she has not slept well all night long. States that her temazepam had been discontinued, though she remembers getting her doxepin. OBJECTIVE: Vital Signs: Her most recent vital signs, temperature 98.2, blood pressure 111/70, heart rate 103, respirations 14. She is on 3 L nasal cannula. Last recorded saturation 92%. She has had 360 in. She has had 2740 off on dialysis. Laboratory Data: Sodium 138, potassium 4.2, chloride is 93, CO2 17, BUN 40, creatinine 7.4, glucose is 86, her anion gap is 28, her calcium is 7.4. White count 8.3, hemoglobin 11.7, hematocrit 37.4, with a platelet count of 156,000. Physical Examination: General: This is a 78-year-old, white female resting quietly on the side of the bed. She is in no acute distress. Her skin is warm and dry. HEENT: Normocephalic, atraumatic. Conjunctivae are pale. She has LUZMARIA. Mucous membranes are dry. Neck: Supple. Trachea midline. No evidence of JVD. Cardiovascular: She is irregularly irregular today. Lungs: Clear to auscultation bilaterally. Equal excursion, with upper respiratory wheezing. She remains on O2 supplementation. Abdomen: Soft, nontender. Positive bowel sounds. Genitourinary: Not inspected. Minimal void with dialysis assist. Extremities: Have no edema today. No clubbing or cyanosis. Neurological: Alert and oriented x3. ASSESSMENT AND PLAN: 1. Chronic kidney disease stage 5D. The patient is due for her routine dialysis treatment in the morning. She had sequential dialysis yesterday to assist with her fluid volume overload as well as dialysis the night before. We will plan for dialysis in the morning per her routine. 2. Electrolytes and acid-base balance with correction on dialysis. These are acceptable. 3. Anemia. This is low but stable. 4. Chest pain. This has resolved. 5. Atrial fibrillation. Patient continues with an irregular heart pattern. Cardiology is on board. I would like to thank you for allowing us to follow with this patient. Dictated by NATHALIA Davidson for Malcolm Marquez MD Face to face encounter, data reviewed, discussed with Negrita Villatoro on 01/04/19. I agree with the above assessment and plan of care. cc: NATHALIA Davidson MD Jagan Reddy, MD MTDD
[2019-01-04] MEDS: TYLENOL PO PRN (17:50)
[2019-01-04] MEDS: MELATONIN PO SCH (21:25)
[2019-01-04] MEDS: SINEQUAN PO SCH (21:25)
--- NOTE | 2019-01-04 21:36 | PROGRESS NOTE ---
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 She was seen in my office on 11/14/2018 for leg cramps upon walking and fatigue. Obviously she had a PAD at that time delegated to medical management. INTERVAL HISTORY: Reviewed. PAST MEDICAL HISTORY: Reviewed. PAST SURGICAL HISTORY: Reviewed. MEDICATIONS: Reviewed. ALLERGIES: Allopurinol. The patient was sleeping this morning and complains of pain all over the body. The patient had dialysis yesterday. OBJECTIVE: Vital signs: Temperature is 97 degrees, pulse 73. Blood pressure is on low side 3% nasal cannula 97%. General: She is in pain all the time. Chest: Clear. Cardiovascular: Heart sounds are irregular. Abdomen: Belly is soft, nontender. Extremities: Decreased pulses. Neurologic: No obvious deficits. INVESTIGATIONS: 1. CBC: White cell count 8.3, hematocrit 37, platelets 156,000. Sodium 138, potassium 4.2, BUN 40, creatinine 7.4, glucose 127. Positive troponin, elevated proBNP. Urinalysis: Positive white cells. 2. Radiology procedures: Chest x-ray on 01/02/2019. Dialysis catheter noted on the left side, cardiomegaly with mild increase in the pulmonary congestion. 3. Echocardiography report: LV function 60%. Atrial fibrillation. No significant valvular heart disease seen. ASSESSMENT AND PLAN: 1. A 78-year-old white male with multiple medical problems, chronic renal failure on dialysis through the right forearm arteriovenous graft 3 times a week, and she has volume overload as per Dr. Marquez. She canceled dialysis. 2. Congestive heart failure due to diastolic dysfunction with atrial fibrillation, new onset. 3. Type 2 diabetes insulin dependent Novolin 70/30, 30 units subcutaneous b.i.d. 4. Hypothyroidism on Synthroid 75 mcg daily. 5. Hypertension. Norvasc 10 daily, metoprolol 50 daily, isosorbide 30 daily. 6. Acid reflux disease on Protonix 40 daily. Diabetic neuropathy. Neurontin 100 mg daily. 7. Monoclonal gammopathy of unknown significance. Seen by Dr. Howell. 8. History of port on the left side. 9. Chronic back pain with multiple surgeries on Neurontin, Robaxin and Freedom and epidural steroid injection by Dr. Amezcua. 10. Living will as a DNR. 11. Reconcile home medications and history of peripheral vascular disease in both legs and taking Pletal. HEALTH MAINTENANCE: Flu vaccine 2018, pneumococcal 2017, last mammography 2015, colonoscopy 2015. The power of erisa attorney, the [place]. She has a DNR. Continue treatment, and we will discuss with Cardiology about further plan on the atrial fibrillation. LEVEL OF DOCUMENTATION: 35 minutes. cc: Mu Adams MD MTDD
[2019-01-05] MEDS ORDERED: TIGHT: 0.2 ML/HR FOR DIALYSIS MISC PRN (05:51)
[2019-01-05] MEDS ORDERED: HEPARIN IV PRN (05:51)
[2019-01-05] MEDS ORDERED: NS 2,000 ML MISC PRN (05:51)
[2019-01-05] MEDS: PROTONIX PO SCH (05:59)
[2019-01-05] MEDS: NORCO-10 PO PRN ×3 (05:59→22:48)
[2019-01-05] MEDS: HUMULIN R SUBQ SCH ×4 (07:44→22:39)
[2019-01-05] MEDS ORDERED: MIRALAX PO ONE (11:06)
--- NOTE | 2019-01-05 14:20 | NEPHROLOGY PROGRESS NOTE ---
DATE: 01/05/2019 SUBJECTIVE: No new complaints. She still has some shortness of breath, but it certainly is not worse. OBJECTIVE: Vital Signs: Blood pressure 96/53, heart rate 61. Afebrile. General: No acute distress. Skin: Warm and dry. Neck: Neck veins are not appreciated. Heart: Regular. No gallops. Lungs: Equal with a few scattered wheezes. Abdomen: Soft, nontender. Bowel sounds present. Extremities: With 1+ edema. No clubbing or cyanosis. IMPRESSION: 1. Chronic kidney disease 5 D. She will have her routine hemodialysis treatment today. We will plan for 2 liters to 3 liters of ultrafiltration as her blood pressure allows. 2. Hypotension. I will stop her amlodipine. 3. Physical therapy. cc: MD Mu Oswald MD
[2019-01-05] MEDS: ROBAXIN PO SCH ×2 (14:57→22:39)
[2019-01-05] MEDS: NEURONTIN PO SCH ×2 (14:57→22:39)
[2019-01-05] MEDS: PLETAL PO SCH ×2 (14:57→22:39)
[2019-01-05] MEDS: SYNTHROID PO SCH (14:57)
[2019-01-05] MEDS: NEPHRO-VITE PO SCH (14:57)
[2019-01-05] MEDS: TOPROL XL PO SCH (14:57)
[2019-01-05] MEDS ORDERED: FLEET ENEMA PR ONE (15:35)
[2019-01-05 18:20] LABS: INR 1.01; PROTIME 14.1 Seconds (11.0-16.0)
--- NOTE | 2019-01-05 18:51 | PROGRESS NOTE ---
DATE: 01/05/2019 SUBJECTIVE: The patient is a little better, no chest pain. She is in atrial fibrillation. She is going for dialysis today. She complains of pain and constipation. OBJECTIVE: On examination, weight 247 pounds. Temperature is 97 degrees, pulse 75, blood pressure is kind of low side. She is eating breakfast ,and her chest has bilateral air entry, irregular heart sounds. ASSESSMENT AND PLAN: 1. End-stage kidney disease, on dialysis. 2. Atrial fibrillation. We will defer the opinion to Dr. Duncan. 3. Constipation. We will use the MiraLAX and Fleet's as needed. 4. Diabetes. Off insulin, on sliding scale. 5. Chronic pain. Todd as needed. 6. Living will. Do Not Resuscitate. Continue present treatment, and we will follow up and once she is medically stable, probably needs cardiac workup, and I will discuss with the power of patent attorney if the symptoms do not improve. LEVEL OF DOCUMENTATION: 25 minutes. cc: Mu Adams MD MTDD
--- NOTE | 2019-01-05 19:40 | CARDIOLOGY PROGRESS NOTE ---
DATE: 01/05/2019 SUBJECTIVE: Ms. Rivera reports she is doing a little bit better today. She continues to have diffuse body pain. OBJECTIVE: Vital Signs: Afebrile. Heart rate 75, blood pressure most recently was 82/49. Systolics seem to be running mainly in the 80s to 90s. General: She is in no acute distress. Cardiovascular: She sounds to be in an irregularly irregular rhythm consistent with atrial fibrillation. She has warm and well-perfused extremities. Chest: Clear to auscultation bilaterally. No increased work of breathing. Abdomen: Soft, nontender. PERTINENT DATA: Echo showed a preserved ejection fraction. No evidence of significant valvular abnormalities. Mild LVH is noted. Laboratory data shows a sodium 138, potassium 4.2, BUN 40, creatinine 7.4, hematocrit is 37.4, platelet count is 156,000. Those were labs on the . She has no chemistry from today. ASSESSMENT: Ms. Rivera is a 78-year-old female who presented with diffuse body pains and was felt to be volume overloaded due to possible inadequate dialysis due to patient compliance. Her troponins were mildly elevated. PLAN: She has been found to be in atrial fibrillation. It is unclear exactly how long this has been for. She reportedly had some sort evaluation in [place] at an outside hospital but I have not been able to obtain those records despite multiple attempts. I currently have a call in to medical records to figure out why these have not been obtained as of yet. I discussed with her the risks, benefits and alternatives of anticoagulation and based on her end-stage renal disease we will initiate her on Coumadin. We will start with a 5 mg dose tonight. I will check an INR now and daily thereafter. Goal for INR range is 2 to 3. cc: MD Mu Cruz MD
[2019-01-05] MEDS: SINEQUAN PO SCH (22:38)
[2019-01-05] MEDS: MELATONIN PO SCH (22:39)
[2019-01-05] MEDS: COUMADIN PO SCH (22:39)
[2019-01-06] MEDS: HUMULIN R SUBQ SCH ×4 (06:13→21:52)
[2019-01-06] MEDS: PROTONIX PO SCH (06:30)
[2019-01-06 07:11] LABS: INR 1.04; PROTIME 14.5 Seconds (11.0-16.0)
[2019-01-06] MEDS: IMDUR PO SCH (10:05)
[2019-01-06] MEDS: SYNTHROID PO SCH (10:05)
[2019-01-06] MEDS: TOPROL XL PO SCH (10:05)
[2019-01-06] MEDS: MIRALAX PO SCH (10:05)
[2019-01-06] MEDS: NEPHRO-VITE PO SCH (10:05)
[2019-01-06] MEDS: NEURONTIN PO SCH ×2 (10:06→21:51)
[2019-01-06] MEDS: ROBAXIN PO SCH ×2 (10:06→21:51)
[2019-01-06] MEDS: PLETAL PO SCH ×2 (10:06→21:51)
[2019-01-06] MEDS: NORCO-10 PO PRN ×2 (10:11→18:19)
--- NOTE | 2019-01-06 13:20 | PROGRESS NOTE ---
DATE: 01/06/2019 SUBJECTIVE: Ms. Rivera has been started on Coumadin for her atrial fibrillation. INR is still low; it is 1.04. Her blood sugar was 195. She has been on 5 mg of warfarin which was started only yesterday. It is too early to increase the Coumadin dosage. We will continue the current management on her. -0 cc: MD Mu Reese MD
[2019-01-06] MEDS: MELATONIN PO SCH (21:51)
[2019-01-06] MEDS: COUMADIN PO SCH (21:51)
[2019-01-06] MEDS: SINEQUAN PO SCH (21:56)
[2019-01-06] MEDS: TYLENOL PO PRN (21:56)
[2019-01-07] MEDS: HUMULIN R SUBQ SCH ×4 (06:18→21:43)
[2019-01-07] MEDS: PROTONIX PO SCH (06:22)
[2019-01-07] MEDS: NORCO-10 PO PRN ×3 (06:24→21:41)
[2019-01-07 07:47] LABS: INR 1.33; PROTIME 17.5 Seconds (11.0-16.0)
[2019-01-07] MEDS: ROBAXIN PO SCH ×2 (09:41→21:41)
[2019-01-07] MEDS: TOPROL XL PO SCH (09:41)
[2019-01-07] MEDS: SYNTHROID PO SCH (09:41)
[2019-01-07] MEDS: NEURONTIN PO SCH ×2 (09:41→21:41)
[2019-01-07] MEDS: NEPHRO-VITE PO SCH (09:41)
[2019-01-07] MEDS: PLETAL PO SCH ×2 (09:41→21:41)
[2019-01-07] MEDS: MIRALAX PO SCH (09:41)
[2019-01-07] MEDS ORDERED: LASIX IV ONE (10:20)
--- NOTE | 2019-01-07 11:12 | Diag Imaging Result Doc PS360 ---
EXAM: CHEST-PORTABLE INDICATION: sob TECHNIQUE: One view COMPARISON: 01/02/2019 FINDINGS: The left subclavian central catheter and right subclavian stent are stable. There is stable elevation of the right hemidiaphragm. There is mild right basilar atelectasis that is stable. The central vasculature is mildly prominent suggesting mild pulmonary venous congestion. However, it is essentially stable. There is probably a trace right pleural effusion that is stable. There is stable cardiomegaly. IMPRESSION: Stable pulmonary venous congestion and a likely trace right effusion. Electronically signed by Robbin Roberts 01/07/2019 11:10 AM
--- NOTE | 2019-01-07 12:26 | PROGRESS NOTE ---
DATE: 01/07/2019 Ms Rivera is not doing well. She is more short of breath. She was somewhat hypotensive. We are going to stop Imdur. We will give her about 20 mg Lasix IV. Her INR is 1.33. We will repeat another EKG today on her and some lab work in the morning. -8 cc: MD Mu Resee MD
[2019-01-07] MEDS ORDERED: CALMOSEPTINE OINTMENT TOP ONE (15:31)
[2019-01-07] MEDS: IMDUR PO SCH (15:55)
[2019-01-07] MEDS: DUONEB (A & A) INH SCH ×2 (16:22→22:55)
[2019-01-07] MEDS: MELATONIN PO SCH (21:41)
[2019-01-07] MEDS: COUMADIN PO SCH (21:41)
[2019-01-07] MEDS: SINEQUAN PO SCH (21:43)
[2019-01-08] MEDS: DUONEB (A & A) INH SCH ×4 (03:15→22:40)
[2019-01-08] MEDS: NORCO-10 PO PRN ×3 (06:08→22:01)
[2019-01-08] MEDS: PROTONIX PO SCH (06:08)
[2019-01-08] MEDS: HUMULIN R SUBQ SCH ×4 (06:08→21:12)
[2019-01-08] MEDS ORDERED: NS 2,000 ML MISC PRN (07:17)
[2019-01-08] MEDS ORDERED: HEPARIN IV PRN (07:17)
[2019-01-08] MEDS ORDERED: TIGHT: 0.2 ML/HR FOR DIALYSIS MISC PRN (07:17)
[2019-01-08 07:25] LABS: INR 1.87; PROTIME 22.9 Seconds (11.0-16.0)
--- NOTE | 2019-01-08 07:30 | EKG Report ---
Test Performed on : 01/08/2019 07:09:34 AM Test Reason : CP Blood Pressure : / mmHG Vent. Rate : 098 BPM Atrial Rate : 104 BPM P-R Int : 000 ms QRS Dur : 092 ms QT Int : 356 ms P-R-T Axes : 000 040 000 degrees QTc Int : 454 ms Atrial fibrillation. Low voltage QRS Cannot rule out Anterior infarct (cited on or before 03-MAY-2014) Abnormal ECG When compared with ECG of 02-JAN-2019 19:44, (Unconfirmed) Questionable change in initial forces of Anterior leads Confirmed by Eugenio VAUGHAN, Jesús Aguilar ([id number]) on 01/08/2019 7:59:19 AM
[2019-01-08 07:47] LABS: CALCIUM 7.4 mg/dL (8.8-10.2); POTASSIUM 4.1 mmol/L (3.5-5.1)
[2019-01-08 07:54] LABS: CREATININE 8.6 mg/dL (0.5-0.9)
[2019-01-08] MEDS: TYLENOL PO PRN (09:01)
--- NOTE | 2019-01-08 09:04 | Diag Imaging Result Doc PS360 ---
EXAM: CHEST-PORTABLE INDICATION: sob TECHNIQUE: One view COMPARISON: 01/07/2019 FINDINGS: The left central catheter is in stable position. Mild right basilar atelectasis and prominent central vasculature are essentially stable. No new consolidation is identified. Cardiac silhouette is stable. IMPRESSION: Stable chest. Electronically signed by Robbin Roberts 01/08/2019 9:01 AM
--- NOTE | 2019-01-08 11:16 | NEPHROLOGY PROGRESS NOTE ---
DATE: 01/08/2019 SUBJECTIVE: Patient resting in bed. She is waiting to go to dialysis. She is complaining of some shortness of breath. She just had a chest x-ray. Results are not back yet. OBJECTIVE: Vital Signs: Temperature 98 degrees, pulse 108, respiratory rate 18, blood pressure 101/53, intake 1.4 L, output none. PHYSICAL EXAMINATION: General: This is an elderly female, resting in bed. She is chronically ill-appearing and in mild distress secondary to shortness of breath. HEENT: Normocephalic, atraumatic. Oral mucosa moist. She has O2 supplementation via nasal cannula noted in place. Neck: Supple with no JVD appreciated. Cardiac: Tachycardic. Pulmonary: She has scattered wheezes throughout. She has some rales posteriorly right greater than left. Abdomen: Soft, positive bowel sounds. : Not inspected. Extremities: Trace edema. Integumentary: Skin is warm and dry. LAB DATA: Sodium 141, potassium 4.1, CO2 24, creatinine 8.6. ASSESSMENT AND PLAN: 1. Chronic kidney disease 5 D. We will dialyze the patient today on a 2 K bath with a 2-4 L UF as tolerated, 3.5 hour treatment. I did discuss with the patient that depending on her respiratory status and imaging tomorrow she may require some additional ultrafiltration. We will make that determination in the morning. 2. Electrolytes, acid-base balance. These are acceptable. 3. Hypotension. Her amlodipine has been stopped. Blood pressure is acceptable today. Her blood pressure may make it difficult to significantly remove fluid today. Dictated by NATHALIA Calhoun for Malcolm Marquez MD Face to face encounter, data reviewed, discussed with David Serrano on 01/08/19. I agree with the above assessment and plan of care. cc: MD Mu Oswald MD [facility]
[2019-01-08] MEDS: MIRALAX PO SCH (13:39)
[2019-01-08] MEDS: NEURONTIN PO SCH ×2 (13:40→21:10)
[2019-01-08] MEDS: SYNTHROID PO SCH (13:40)
[2019-01-08] MEDS: ROBAXIN PO SCH ×2 (13:40→21:10)
[2019-01-08] MEDS: NEPHRO-VITE PO SCH (13:40)
[2019-01-08] MEDS: PLETAL PO SCH ×2 (13:40→21:10)
[2019-01-08] MEDS: TOPROL XL PO SCH (13:41)
--- NOTE | 2019-01-08 19:27 | PROGRESS NOTE ---
DATE: 01/08/2019 SUBJECTIVE: The patient is anxious to go home. No chest pain and patient is going for dialysis today. Continues in atrial fibrillation on the firer watertender. EXAMINATION: Vital Signs: Temp is 98, pulse is 115. Vitals are stable. HEENT: Within normal limits. Neck: Supple. Irregular heart sounds. Chest: Clear. Abdomen: Belly is soft, obese, nontender. Right AV graft was placed. No neurological deficits. INVESTIGATIONS: PT 22, INR 1.8. SMA-7: Sodium 140, potassium 4.1, BUN 48, creatinine 8.6, glucose 213. Chest x-ray: Stable chest. ASSESSMENT AND PLAN: New onset of atrial fibrillation. Echo was normal. LV systolic function positive. Cardiac enzymes positive. We will check the thyroid function tests and PT/INR in the morning. Currently on chronic Coumadin therapy. INR is therapeutic. End-stage kidney disease on dialysis. Discussed with the grandson this morning. Will discharge after the dialysis and continue Coumadin with [facility] and will follow up. LEVEL OF DOCUMENTATION: 25 minutes. cc: Mu Adams MD MTDD
[2019-01-08] MEDS: MELATONIN PO SCH (21:10)
[2019-01-08] MEDS: SINEQUAN PO SCH (21:10)
[2019-01-08] MEDS: COUMADIN PO SCH (21:10)
[2019-01-09] MEDS: DUONEB (A & A) INH SCH (03:54)
[2019-01-09] MEDS: NORCO-10 PO PRN ×2 (06:35→15:14)
[2019-01-09] MEDS: HUMULIN R SUBQ SCH ×2 (06:36→11:14)
[2019-01-09] MEDS: PROTONIX PO SCH (06:36)
[2019-01-09 08:06] LABS: INR 2.65; PROTIME 30.2 Seconds (11.0-16.0)
--- NOTE | 2019-01-09 08:12 | NEPHROLOGY PROGRESS NOTE ---
DATE: 01/09/2019 SUBJECTIVE: She is hoping for discharge this morning. Shortness of breath at baseline. OBJECTIVE: Vital Signs: Blood pressure 99/56, heart rate 92, afebrile. General: No acute distress. Skin: Warm and dry. Neck: Neck veins are not visible. Heart: Regular. Lungs: Equal. No crackles. Abdomen: Soft, nontender. Bowel sounds present. Extremities: Have trace edema. No clubbing or cyanosis. IMPRESSION: 1. Chronic kidney disease 5 D. She had her routine dialysis yesterday. 2. Volume overload. Symptomatically improved on supplemental oxygen. No overt pulmonary edema on her chest x-ray as of yesterday. 3. Electrolytes/acid base/anemia: All in target. 4. Hypertension. Blood pressure is low at 99/56. Continue current medications. cc: MD Mu Oswald MD
[2019-01-09 08:23] LABS: FREE T4 1.19 ng/dL (0.93-1.70)
[2019-01-09 08:34] LABS: TSH 5.5 uIUmL (0.27-4.20)
[2019-01-09] MEDS: SYNTHROID PO SCH (10:13)
[2019-01-09] MEDS: NEPHRO-VITE PO SCH (10:13)
[2019-01-09] MEDS: PLETAL PO SCH (10:13)
[2019-01-09] MEDS: ROBAXIN PO SCH (10:13)
[2019-01-09] MEDS: NEURONTIN PO SCH (10:13)
[2019-01-09] MEDS: TOPROL XL PO SCH (10:13)
[2019-01-09 12:09] VITALS: BP 109/73
--- NOTE | 2019-01-09 18:09 | PROVIDER DOCUMENTATION ---
This chart was entered by Saleem Jacques Scribe, acting as scribe for Vic Taylor MD. HPI-Respiratory General - General Chief Complaint: Shortness of Breath Stated Complaint: resp distress Time Seen by Provider: 01/02/19 19:33 Source: patient Allergies/Adverse Reactions: Patient Allergies Allergy/AdvReac Type Severity Reaction Status Date / Time allopurinol Allergy Severe HIVES Verified 09/09/18 14:15 fenofibrate nanocrystallized Allergy Severe HIVES Verified 09/09/18 14:15 * [From Tricor] fenofibrate,micronized * Allergy Severe HIVES Verified 09/09/18 14:15 [From Tricor] morphine Allergy Severe HIVES Verified 09/09/18 14:15 Penicillins Allergy Severe HIVES Verified 09/09/18 14:15 rosuvastatin calcium * Allergy Severe kidney Verified 09/09/18 14:15 [From Crestor] failure aspirin [From Percodan] AdvReac Severe syncope Verified 09/09/18 14:15 hydromorphone HCl * AdvReac Severe hallucinati Verified 09/09/18 14:15 [From Dilaudid] ons oxycodone HCl * AdvReac Severe syncope Verified 09/09/18 14:15 [From Percodan] oxycodone terephthalate * AdvReac Severe syncope Verified 09/09/18 14:15 [From Percodan] atorvastatin calcium * AdvReac kidney Verified 09/09/18 14:15 [From Lipitor] failure Home Medications: Home Medication List Medication Instructions Recorded Confirmed Last Taken Type Levothyroxine Sodium [Synthroid] 175 mcg PO DAILY 05/03/14 09/09/18 Unknown His tory Doxepin [Sinequan] 10 mg PO HS 09/09/18 09/10/18 Unknown History Folic Acid/Vit Bcomp,C [Leida-Joanne 1 tab PO DAILY 09/09/18 09/09/18 Unknown History Tablet] Insulin NPH Hum/Reg Insulin Hm 25 units SQ BID 09/09/18 09/09/18 Unknown History [Novolin 70-30 Flexpen] Methocarbamol [Robaxin] 1 tab PO HS 09/09/18 09/10/18 Unknown History Temazepam 15 mg PO HS 09/09/18 09/09/18 Unknown History Amlodipine [Norvasc] 5 mg PO DAILY #30 tab 09/10/18 Unknown Rx Gabapentin [Neurontin] 100 mg PO BID 09/10/18 09/10/18 Unknown History Isosorbide Mononitrate E.r. [Imdur] 30 mg PO DAILY #30 tab 09/10/18 Unknown Rx Metoprolol Succinate E.r. [Toprol 50 mg PO DAILY #30 tab 09/10/18 Unknown Rx Xl] - History of Present Illness-Resp Nature of Presenting Problem: Pt is a 78 y/o F presents to the ED with SOB and confusion. Pt is a poor historian and says she is unsure what is wrong with her. She reports she was in 2 hospitals in [place] and says she has no clue what she was there for. She reports she has renal disease with dialysis today. She reports home O2 at 2L PRN but has been wearing her O2 all the time. She reports a green productive cough for 2 weeks. Quality of Pain: reports: aching Severity in ED: reports: mild Onset/Duration: reports: unsure Timing: reports: still present Cough Quality/Degree: reports: productive cough, sputum (green) Current Respiratory Medication Therapy: Initiated none Associated Symptoms: reports: cough, shortness of breath. denies: facial pain, fever/chills, flu-like symptoms, wheezing Similar Symptoms Previously?: No Recently seen or treated by another doctor?: No Review of Systems - Adult - REVIEW OF SYSTEMS - ADULT Constitutional: reports: other (confusion). denies: chills, fever Eyes: reports: no symptoms reported Ears, Nose, Mouth & Throat: reports: no symptoms reported Cardiovascular: reports: chest pain, edema. denies: orthopnea, palpitations Respiratory: reports: cough, shortness of breath. denies: wheezing Gastrointestinal: denies: abdominal pain, diarrhea, nausea, vomiting Genitourinary: denies: dysuria, discharge Musculoskeletal: denies: back pain, neck pain Integumentary: reports: no symptoms reported Neurological: denies: dizziness/vertigo, headache/migraines, slurred speech Psychiatric: reports: no symptoms reported Endocrine: reports: no symptoms reported Hematologic/Lymphatic: reports: no symptoms reported Allergic/Immunologic: reports: no symptoms reported All Other Systems: Reviewed and Negative Past History - Adult - PAST MEDICAL HISTORY-ADULT Review of Records: reports: Old Records Reviewed, Nursing Assessment Review, Medications Reviewed Major Childhood Illnesses: reports: denies history Cardiovascular: reports: A-Fib, CHF, HTN Respiratory: reports: COPD Gastrointestinal: reports: denies history, GERD Obstetrical/Gynecological: reports: denies history Genitourinary: reports: dialysis, ESRD, kidney disease Musculoskeletal: reports: denies history Neurological: reports: denies history Psychiatric: reports: anxiety Endocrine/Immune: reports: Diabetes, thyroid disorder (hypo) Other Conditions: reports: denies history - PRIOR SURGERIES/PROCEDURES Surgical/Procedure History: reports: cholecystectomy, hysterectomy, , indwelling device (av fistula), orthopedic (extremity) (knees, bilateral carpal tunnel, thumb), back/neck, other (R nephrectomy) - IMMUNIZATION STATUS Childhood Immunizations: See Nurse Assessment Flu Vaccine: See Nurse Assessment - FAMILY HISTORY Family History: reviewed, not pertinent - SOCIAL HISTORY Smoking: non-smoker Substance Use: none/never Living Situation: family Physical Exam-General - CONSTITUTIONAL General Appearance: appears well, alert, no apparent distress - EYES Eyes: PERRL/EOMI, pink conjunctivae - HEAD, EARS, NOSE, MOUTH & THROAT HENMT: moist mucous membranes, normal ENT inspection, pharynx normal - NECK Neck: non-tender, full range of motion, supple, normal inspection - RESPIRATORY Respiratory: lungs clear, normal breath sounds, no pleuratic chest pain, no respiratory distress, no accessory muscle use - CARDIOVASCULAR Cardiovascular: normal peripheral pulses, irregularly irregular - GASTROINTESTINAL (ABDOMEN) Abdominal Exam: normal bowel sounds, non tender, soft - MUSCULOSKELETAL Back Exam: normal inspection, no CVA tenderness, no vertebral tenderness Extremity: normal range of motion, non-tender, pedal edema - SKIN Integumentary: normal color, normal turgor, warm/dry - NEUROLOGIC Neurologic: grossly normal, no motor/sensory deficits - PSYCHIATRIC Psych/Mental Status: normal mood/affect, oriented x 3. negative: normal thought content, normal thought process Progress - PLAN OF CARE/RESULTS Progress/Plan/Lab Results: Vital Signs - 8 hr 01/02/19 19:42 Temperature 97.5 F L Pulse Rate 79 Respiratory Rate 16 Blood Pressure 92/48 O2 Sat by Pulse Oximetry 94 L Laboratory Results - last 24 hr 01/02/19 01/02/19 01/02/19 20:57 20:57 20:57 WBC 6.97 RBC 3.70 L Hgb 11.3 L Hct 36.7 L MCV 99.2 H MCH 30.5 MCHC 30.8 L RDW Std Deviation 17.9 H Plt Count 229 MPV 10.5 H Immature Gran % (Auto) 0.7 H Neut % (Auto) 76.8 H Lymph % (Auto) 13.9 L [place] % (Auto) 7.7 Eos % (Auto) 0.6 Baso % (Auto) 0.3 Immature Gran # (Auto) 0.05 H Neut # (Auto) 5.35 Lymph # (Auto) 0.97 L [place] # (Auto) 0.54 Eos # (Auto) 0.04 Baso # (Auto) 0.02 Sodium 139 Potassium 4.6 Chloride 96 L Carbon Dioxide 21 L Anion Gap 22 BUN 27 H Creatinine 5.9 H Estimated GFR/1.73 m2 7 BUN/Creatinine Ratio 5 Glucose 71 Calculated Osmolality 281 Calcium 7.5 L Total Bilirubin 0.27 AST 45 H ALT 33 Alkaline Phosphatase 110 H Troponin T Kjo-O-Brgdlxglrut Pept 8694 H Total Protein 7.1 Albumin 4.4 Globulin 2.7 Albumin/Globulin Ratio 1.6 Urine Source Urine Color Urine Turbidity Urine pH Ur Specific Hasty Urine Protein Ur Glucose (Stick) Ur Ketones (Stick) Urine Blood Urine Nitrite Urine Bilirubin Urobilinogen Dipstick Urine Leukocytes Urine WBC (Auto) Urine RBC (Auto) U Epithel Cells (Auto) Urine Bacteria (Auto) 01/02/19 01/02/19 20:57 23:31 WBC RBC Hgb Hct MCV MCH MCHC RDW Std Deviation Plt Count MPV Immature Gran % (Auto) Neut % (Auto) Lymph % (Auto) [place] % (Auto) Eos % (Auto) Baso % (Auto) Immature Gran # (Auto) Neut # (Auto) Lymph # (Auto) [place] # (Auto) Eos # (Auto) Baso # (Auto) Sodium Potassium Chloride Carbon Dioxide Anion Gap BUN Creatinine Estimated GFR/1.73 m2 BUN/Creatinine Ratio Glucose Calculated Osmolality Calcium Total Bilirubin AST ALT Alkaline Phosphatase Troponin T 0.112 H Apz-U-Jzxcldydars Pept Total Protein Albumin Globulin Albumin/Globulin Ratio Urine Source CLEAN CATCH Urine Color BROWN Urine Turbidity TURBID Urine pH 6.5 Ur Specific Hasty 1.009 Urine Protein 200 A Ur Glucose (Stick) NEGATIVE Ur Ketones (Stick) NEGATIVE Urine Blood SMALL A Urine Nitrite NEGATIVE Urine Bilirubin NEGATIVE Urobilinogen Dipstick NORMAL Urine Leukocytes LARGE A Urine WBC (Auto) TNTC A Urine RBC (Auto) 10-20 A U Epithel Cells (Auto) >10 A Urine Bacteria (Auto) 4+ Orders Category Date Time Status cxr [CHEST-1 VIEW] [RAD] Stat Exams 01/02/19 19:53 Completed CBC WITH ELECTRONIC DIFF [HEME] Stat Lab 01/02/19 20:57 Completed COMPREHENSIVE METABOLIC PANEL [CHEM] Stat Lab 01/02/19 20:57 Completed PRO B-NATRIURETIC PEPTIDE Stat Lab 01/02/19 20:57 Completed TROPONIN T Stat Lab 01/02/19 20:57 Completed URINALYSIS [URINALYSIS] Stat Lab 01/02/19 23:31 Results URINE MANUAL MICROSCOPIC [URINALYSIS] Stat Lab 01/02/19 23:31 Results Levofloxacin 250 mg/D5w [Levaquin 250 mg/D5w] Med 01/03/19 00:10 Active 250 mg in 50 ml IV NOW Meperidine [Demerol] Med 01/03/19 00:16 Discontinued 25 mg IV NOW ONE Promethazine [Phenergan] Med 01/03/19 00:17 Discontinued 25 mg IM NOW ONE EKG [EKG] Stat Ther 01/02/19 19:55 Ordered Result Diagrams: 01/02/19 20:57 01/02/19 20:57 - EKG 1 Time of EKG reading by physician:: 19:44 EKG Read and Signed by:: Vic Taylor EKG Interpretation (*Must complete 3 of following elements*): Abnormal Rate: 83 Rhythm: A-Fib with competeing junctional pacemaker QRS: other (low voltage QRS) - XRAY 1 XRAY Study: Chest Impression: Abnormal ( EXAM: CHEST-1 VIEW HISTORY: sob TECHNIQUE: Chest single view COMPARISON: 09/09/2017 FINDINGS: Poor inspiratory effort. Heart is borderline mildly prominent. There is mild vascular distention. Tiny right pleural effusion. No change in the left subclavian portacatheter. A vascular stent overlies the upper right chest. IMPRESSION: Mild pulmonary edema. Electronically signed by Norman Dubose 01/02/2019 8:41 PM 01/02/192040 Interpreting Physician: Norman Dubose MD Dictated Date/Time: 01/02/192039 cc: Vic Taylor MD; Lakisha Adams MD) - CONSULTS/PCP/HOSPITALIST Notification #1 *Consult/PCP/Hospitalist*: Hospitalist- Dr Pillai Time Discussed: 00:04 Reason/Comments: admission Consult Disposition: Will see in ED (Ask to consult cardiology) #2 Consult: Cardiolosist- Dr Tanner Time Discussed: 00:24 Reason/Comments: willing to follow pt Consult Disposition: other (Yes will follow.) Departure - Departure Date of Disposition Decision: 01/03/19 Time of Disposition Decision: 00:11 DIAGNOSIS: CRF (chronic renal failure), CHF (congestive heart failure), UTI (urinary tract infection), NSTEMI (non-ST elevated myocardial infarction) Disposition: ADMITTED INPATIENT 09 Certified Medical Emergency: Emergent Condition: Fair Referrals and Follow-Ups: Lakisha Adams MD [Primary Care Provider] - - Critical Care Note This patient required my direct & personal management of CC.: No Attestation - Physician/ GABRIELA Attestation Patient care was provided by Advanced Practice Provider:: No The physician spent face to face time with patient:: Yes Advanced Practice Provider documentation review:: Supervising physician onsite and consulted in the evaluation and care of this patient. The physician did have a face to face encounter with the patient. This chart was documented by the indicated scribe, (Saleem Jacques Scribe) and accurately reflects the services I performed and decisions made by me, Vic Taylor MD, as attested by the provider's signature.
--- NOTE | 2019-01-09 22:02 | DISCHARGE SUMMARY ---
ADMISSION DATE: 01/03/2019 DISCHARGE DATE: 01/09/2019 DISCHARGE DIAGNOSIS: Chest pain, atypical. SECONDARY DIAGNOSES: 1. New onset of atrial fibrillation. 2. Chronic back pain. 3. End-stage kidney disease on dialysis through the right arteriovenous graft by Dr. Marquez. 4. Hypertension. 5. Hyperlipidemia. 6. Type 2 diabetes. 7. Hypothyroidism. 8. Chronic neuropathy pain in both legs. 9. Peripheral arterial disease. CONSULTS: 1. Dr. Malcolm Marquez. 2. Dr. Jhon Duncan. PROCEDURES: 1. Inpatient hemodialysis. 2. Echocardiography: Findings are patient is in atrial fibrillation. Ejection fraction is 60%. No significant valvular heart disease seen. BRIEF HISTORY: Please see the H and P that was done by hospitalist. In brief, she is a 78-year- old white female with above problems, who came in with pain all over the body and chest pain and rapid atrial fibrillation. HOSPITAL COURSE: 1. As a part of atrial fibrillation, the patient has a positive troponin, probably due to chronic kidney disease. EKG shows chronic atrial fibrillation, Q-waves in V1 and V2, nothing acute for ischemia. Thyroid function tests are normal. No valvular heart disease seen. Based on the CHADVASC score, it is very high, and Dr. Duncan started on Coumadin. INR is 2.6. At the time of discharge, the patient is not offering any chest pain. We will hold on the ischemic cardiac workup. At this time, basically relegated to rate control with metoprolol isosorbide and anticoagulation, either Coumadin or Eliquis. 2. End-stage kidney disease on dialysis as per Dr. Marquez. He prefers Eliquis rather than the Coumadin, and Dr. Duncan is going to slowly transfer to Eliquis in the [facility]in [facility]. 3. Diabetes is stable. The rest of the hospital course was uneventful. The patient had some constipation, got better. LABORATORIES: CBC: White cell count 8.3, hematocrit 37, platelet 156,000. PT 30, INR 2.65. Thyroid function was normal. SMA-7: BUN 48, creatinine 8.6. DISCHARGE INSTRUCTIONS: Synthroid 175 mcg daily. Doxepin 10 at bedtime. Folic acid with B complex. Vitamin C 1 tablet daily. Robaxin 500 p.o. b.i.d. Temazepam 15 at bedtime. NPH Novolin 70/30, 30 units subcutaneous b.i.d. Neurontin 100 p.o. b.i.d. Isosorbide 30 daily. Metoprolol 50 daily. Pletal 50 b.i.d. [place] 10 q.8 for the pain clinic. Protonix 40 daily. Amlodipine 10 daily. Warfarin 2 mg daily, monitoring the Coumadin with Dr. Jhon Duncan. Outpatient home health. Oxygen as needed. Discussed the plan of care with Dr. Marquez and Dr. Jhon Duncan along with the grandson, and Home Health is maintaining the Coumadin outpatient home health care. cc: Mu Adams MD
== END 2019-01-09 16:16 | disposition home health service (06) | DRG 308 ==
LOC: 3N 19:21 → ED 19:21 → OBSVTOIN 01-03 04:46 → SUATTDRO 01-03 04:46
PROVIDERS: ADMIT Internal Medicine; ATTEND Internal Medicine
CPT/HCPCS: 51701; 71010; 71045; 80048; 80053; 81001; 82948; 83880; 84439; 84443; 84484; 85025; 85610; 93005; 93010; 93306; 94640; 94760; 94761; 96365; 96366; 97162; 97530; 99285; A9270; C8929; J1644; J1940; J1956; J2175; J2550; J7030; P9612; Q9957; XXXXX

== ENCOUNTER 2019-03-01 15:23 | Observation (INO) ==
[2019-03-01] MEDS ORDERED: CARDIZEM IV ONE ×2 (15:46→17:26)
[2019-03-01] MEDS ORDERED: LOVENOX SUBQ ONE (15:48)
--- NOTE | 2019-03-01 15:58 | EKG Report ---
Test Performed on : 03/01/2019 3:33:47 PM Test Reason : irregular Blood Pressure : / mmHG Vent. Rate : 122 BPM Atrial Rate : 153 BPM P-R Int : 000 ms QRS Dur : 084 ms QT Int : 300 ms P-R-T Axes : 000 060 227 degrees QTc Int : 427 ms Atrial fibrillation. with rapid ventricular response. Low voltage QRS Cannot rule out Anterior infarct (cited on or before 03-MAY-2014) Abnormal ECG When compared with ECG of 23-JAN-2019 10:23, (Unconfirmed) Nonspecific T wave abnormality now evident in Anterior leads Unconfirmed Result
[2019-03-01 15:59] LABS: BASO# 0.02 X1000 (0.0-0.2); BASO% 0.4 % (0.0-0.8); EOS# 0.11 X1000 (0.0-0.7); EOS% 2.1 % (0.0-10.0); HEMATOCRIT 38.7 % (37.0-47.0); HEMOGLOBIN 11.6 g/dL (12.0-16.0); IMM GRAN# 0.02 X1000 (0.0-0.04); IMM GRAN% 0.4 % (0.0-0.5); LYMPH# 1.41 X1000 (1.2-3.4); LYMPH% 26.5 % (20.5-51.1); MCH 30.3 PG (27-31); MONO# 0.64 X1000 (0.11-0.59); MPV 9.9 FL (7.4-10.4); NEUT# 3.13 X1000 (1.4-6.5); NEUT% 58.6 % (42.2-75.2); PLT 299 X1000 (130-400); RBC 3.83 XMIL (4.2-5.4); RDW 17.9 % (11.5-14.5); WBC 5.33 X1000 (4.8-10.8)
[2019-03-01 16:10] LABS: INR 1.04; PROTIME 14.4 Seconds (11.0-16.0)
[2019-03-01 16:11] LABS: PTT 35.4 Seconds (22.3-41.8)
--- NOTE | 2019-03-01 16:35 | Diag Imaging Result Doc PS360 ---
EXAM: CHEST-PORTABLE 03/01/2019 HISTORY: sob TECHNIQUE: AP portable upright at 1626 COMMENT: The inspiration is suboptimal. There is a Port-A-Cath on the left. There is a graft present over the right apex. The appearance the chest has not changed significantly considering differences in inspiration and technique since 01/23/2019. IMPRESSION: Stable chest. Electronically signed by Dre Rodriguez 03/01/2019 4:33 PM
[2019-03-01 17:25] LABS: ALB/GLOB RATIO 1.9; ALBUMIN 3.6 g/dL (3.5-5.0); CALCIUM 8.1 mg/dL (8.8-10.2); MAGNESIUM 2.5 mg/dL (1.5-2.7); POTASSIUM 5.1 mmol/L (3.5-5.1); TOTAL BILIRUBIN 0.31 mg/dL (0.20-1.00); TOTAL PROTEIN 5.5 g/dL (6.3-8.3)
[2019-03-01 17:28] LABS: CREATININE 6.5 mg/dL (0.5-0.9)
[2019-03-01] MEDS ORDERED: CARDIZEM 100 MG/NS 100 MG/100 ML IVPB IV SCH (17:30)
--- NOTE | 2019-03-01 17:40 | PROVIDER DOCUMENTATION ---
This chart was entered by Zohreh Marshall Scribe, acting as scribe for Eh Santana MD. HPI-Cardiac General - General Chief Complaint: Palpitations Stated Complaint: IRREGULAR HEART BEAT Time Seen by Provider: 03/01/19 15:41 Source: patient Allergies/Adverse Reactions: Patient Allergies Allergy/AdvReac Type Severity Reaction Status Date / Time allopurinol Allergy Severe HIVES Verified 03/01/19 15:58 fenofibrate nanocrystallized Allergy Severe HIVES Verified 03/01/19 15:58 * [From Tricor] fenofibrate,micronized * Allergy Severe HIVES Verified 03/01/19 15:58 [From Tricor] morphine Allergy Severe HIVES Verified 03/01/19 15:58 Penicillins Allergy Severe HIVES Verified 03/01/19 15:58 rosuvastatin calcium * Allergy Severe kidney Verified 03/01/19 15:58 [From Crestor] failure aspirin [From Percodan] AdvReac Severe syncope Verified 03/01/19 15:58 hydromorphone HCl * AdvReac Severe hallucinati Verified 03/01/19 15:58 [From Dilaudid] ons oxycodone HCl * AdvReac Severe syncope Verified 03/01/19 15:58 [From Percodan] oxycodone terephthalate * AdvReac Severe syncope Verified 03/01/19 15:58 [From Percodan] atorvastatin calcium * AdvReac kidney Verified 03/01/19 15:58 [From Lipitor] failure Home Medications: Home Medication List Medication Instructions Recorded Confirmed Last Taken Type Levothyroxine Sodium [Synthroid] 175 mcg PO DAILY 05/03/14 01/03/19 Unknown History Doxepin [Sinequan] 10 mg PO HS 09/09/18 01/03/19 Unknown History Folic Acid/Vit Bcomp,C [Leida-Joanne 1 tab PO DAILY 09/09/18 01/03/19 Unknown History Tablet] Insulin NPH Hum/Reg Insulin Hm 30 units SQ BID 09/09/18 01/04/19 Unknown History [Novolin 70-30 Flexpen] Methocarbamol [Robaxin] 1 tab PO BID 09/09/18 01/03/19 Unknown History Temazepam 15 mg PO HS 09/09/18 09/09/18 Unknown History Gabapentin [Neurontin] 100 mg PO BID 09/10/18 01/03/19 Unknown History Isosorbide Mononitrate E.r. [Imdur] 30 mg PO DAILY #30 tab 09/10/18 01/03/19 Unknown Rx Metoprolol Succinate E.r. [Toprol 50 mg PO DAILY #30 tab 09/10/18 01/03/19 Unknown Rx Xl] Amlodipine [Norvasc] 10 mg PO DAILY 01/03/19 01/03/19 Unknown History Cilostazol 50 mg PO BID 01/03/19 01/03/19 Unknown History Hydrocodone/APAP 10 mg/325 mg 10 mg PO Q8H PRN 01/03/19 01/03/19 Unknown History [[place]-10] Pantoprazole [Protonix] 40 mg PO DAILY@0700 01/03/19 01/03/19 Unknown History Warfarin Sodium [Coumadin] 2 mg PO DAILY #30 tab 01/09/19 Unknown Rx Hydrocodone/APAP 10 mg/325 mg 1 ea PO Q6H PRN PRN #7 tab 01/12/19 Unknown Rx [[place]-10] Hydrocodone/APAP 7.5 mg/325 mg 1 ea PO Q6H PRN PRN #30 tab 01/20/19 Unknown Rx [[place]-7.5] Sulfamethoxazole/Trimethoprim 1 ea PO BID #14 tab 01/20/19 Unknown Rx [Bactrim Ds Tablet] - History of Present Illness-Cardiac Nature of Presenting Problem: Patient is a 78 year old female who presents with A fib with RVR. Patient states she was getting her dialysis shunt checked and was informed to go to the ED due to having an elevated heart rate. Patient denies chest pain and shortness of breath. Denies history of A fib. Patient is a poor historian. Dr. Santana reviewed patient's prior records and patient has a history of A fib with RVR on 01/23/2019. Quality of Pain: reports: none Severity in ED: mild Onset/Duration: just prior to arrival Timing: still present Palpitation Quality: fast/pounding heart beat History of arrythmia: reports: A-Fib Associated Symptoms: reports: denies symptoms Similar Symptoms Previously?: Yes Recently Seen Here or By Another Healthcare Provider: Yes Review of Systems - Adult - REVIEW OF SYSTEMS - ADULT Constitutional: reports: no symptoms reported. denies: chills, fever, fatique Eyes: reports: no symptoms reported Ears, Nose, Mouth & Throat: reports: no symptoms reported Cardiovascular: reports: no symptoms reported. denies: chest pain, irregular heart rate, palpitations Respiratory: reports: no symptoms reported. denies: cough, dyspnea on exertion, shortness of breath Gastrointestinal: reports: no symptoms reported Genitourinary: reports: no symptoms reported Musculoskeletal: reports: no symptoms reported Integumentary: reports: no symptoms reported Neurological: reports: no symptoms reported Psychiatric: reports: no symptoms reported Endocrine: reports: no symptoms reported Hematologic/Lymphatic: reports: no symptoms reported Allergic/Immunologic: reports: no symptoms reported All Other Systems: Reviewed and Negative Past History - Adult - PAST MEDICAL HISTORY-ADULT Review of Records: reports: Old Records Reviewed, Nursing Assessment Review, Medications Reviewed, Social history reviewed & non-contributory. Major Childhood Illnesses: reports: denies history Cardiovascular: reports: A-Fib, CHF, HTN Respiratory: reports: COPD Gastrointestinal: reports: GERD Obstetrical/Gynecological: reports: denies history Genitourinary: reports: dialysis (MWF), ESRD, kidney disease Musculoskeletal: reports: denies history Neurological: reports: denies history Psychiatric: reports: anxiety Endocrine/Immune: reports: Diabetes, thyroid disorder (hypo) Other Conditions: reports: denies history - PRIOR SURGERIES/PROCEDURES Surgical/Procedure History: reports: cholecystectomy, hysterectomy, , indwelling device (av fistula), orthopedic (extremity) (knees, bilateral carpal tunnel, thumb), back/neck, other (R nephrectomy) - IMMUNIZATION STATUS Childhood Immunizations: See Nurse Assessment Flu Vaccine: See Nurse Assessment - FAMILY HISTORY Family History: reviewed, not pertinent - SOCIAL HISTORY Smoking: denies Substance Use: denies Physical Exam-General - PHYSICAL EXAM-ADULT Initial Vital Signs Reviewed: Yes - CONSTITUTIONAL General Appearance: alert, no apparent distress. negative: lethargic, slow to respond - HEAD, EARS, NOSE, MOUTH & THROAT HENMT: normocephalic/atraumatic, moist mucous membranes. negative: angioedema - RESPIRATORY Respiratory: chest non-tender, lungs clear, normal breath sounds. negative: rhonchi, wheezing - CARDIOVASCULAR Cardiovascular: tachycardia, irregularly irregular. negative: systolic murmur - GASTROINTESTINAL (ABDOMEN) Abdominal Exam: normal bowel sounds, non tender, soft. negative: guarding, rebound - MUSCULOSKELETAL Extremity: non-tender, normal inspection, other (dialysis shunt present to right arm with positive thrill.). negative: deformity, erythema - SKIN Integumentary: normal color, normal turgor, warm/dry. negative: cyanosis, ecchymosis, erythema, jaundice - NEUROLOGIC Neurologic: grossly normal. negative: aphasia, facial droop - PSYCHIATRIC Psych/Mental Status: normal mood/affect, oriented x 3. negative: anxious Progress - PLAN OF CARE/RESULTS Progress/Plan/Lab Results: Vital Signs - 8 hr 03/01/19 15:36 03/01/19 15:39 03/01/19 15:40 Pulse Rate 127 H 126 H 129 H Respiratory Rate 21 21 18 Blood Pressure 97/62 O2 Sat by Pulse Oximetry 100 96 03/01/19 15:41 03/01/19 15:48 03/01/19 15:50 Pulse Rate 128 H 114 H 133 H Respiratory Rate 17 18 18 Blood Pressure 97/62 110/53 O2 Sat by Pulse Oximetry 100 100 100 03/01/19 15:57 03/01/19 16:01 03/01/19 16:02 Pulse Rate 136 H 123 H 119 H Respiratory Rate 19 18 23 Blood Pressure 101/53 111/56 O2 Sat by Pulse Oximetry 99 100 03/01/19 16:07 03/01/19 16:10 03/01/19 16:12 Pulse Rate 112 H 144 H 98 H Respiratory Rate 18 19 19 Blood Pressure 96/51 89/44 O2 Sat by Pulse Oximetry 100 95 03/01/19 16:18 03/01/19 16:20 03/01/19 16:23 Pulse Rate 96 H 107 H 112 H Respiratory Rate 12 17 20 Blood Pressure 92/35 83/59 O2 Sat by Pulse Oximetry 100 100 03/01/19 16:27 03/01/19 16:31 03/01/19 16:33 Pulse Rate 108 H 107 H 108 H Respiratory Rate 22 22 22 Blood Pressure 104/56 99/52 O2 Sat by Pulse Oximetry 94 L 99 98 03/01/19 16:37 03/01/19 16:40 03/01/19 16:43 Pulse Rate 105 H 105 H 98 H Respiratory Rate 18 26 H 24 Blood Pressure 102/67 105/57 O2 Sat by Pulse Oximetry 92 L 95 100 03/01/19 16:48 03/01/19 16:50 03/01/19 16:52 Pulse Rate 93 H 94 H 105 H Respiratory Rate 17 18 17 Blood Pressure 105/53 121/75 O2 Sat by Pulse Oximetry 100 03/01/19 17:01 03/01/19 17:02 Pulse Rate 99 H 93 H Respiratory Rate 19 17 Blood Pressure 107/72 O2 Sat by Pulse Oximetry 100 100 Laboratory Results - last 24 hr 03/01/19 03/01/19 03/01/19 15:45 15:45 15:45 WBC 5.33 RBC 3.83 L Hgb 11.6 L Hct 38.7 MCV 101.0 H MCH 30.3 MCHC 30.0 L RDW Std Deviation 17.9 H Plt Count 299 MPV 9.9 Immature Gran % (Auto) 0.4 Neut % (Auto) 58.6 Lymph % (Auto) 26.5 [place] % (Auto) 12.0 H Eos % (Auto) 2.1 Baso % (Auto) 0.4 Immature Gran # (Auto) 0.02 Neut # (Auto) 3.13 Lymph # (Auto) 1.41 [place] # (Auto) 0.64 H Eos # (Auto) 0.11 Baso # (Auto) 0.02 PT 14.4 INR 1.04 PTT (Actin FS) 35.4 Sodium Potassium Chloride Carbon Dioxide Anion Gap BUN Creatinine Estimated GFR/1.73 m2 BUN/Creatinine Ratio Glucose Calculated Osmolality Calcium Phosphorus Magnesium Total Bilirubin AST ALT Alkaline Phosphatase Creatine Kinase Troponin T Total Protein Albumin Globulin Albumin/Globulin Ratio TSH 6.06 H 03/01/19 03/01/19 17:03 17:03 WBC RBC Hgb Hct MCV MCH MCHC RDW Std Deviation Plt Count MPV Immature Gran % (Auto) Neut % (Auto) Lymph % (Auto) [place] % (Auto) Eos % (Auto) Baso % (Auto) Immature Gran # (Auto) Neut # (Auto) Lymph # (Auto) [place] # (Auto) Eos # (Auto) Baso # (Auto) PT INR PTT (Actin FS) Sodium 138 Potassium 5.1 Chloride 97 L Carbon Dioxide 23 L Anion Gap 18 BUN 22 Creatinine 6.5 H Estimated GFR/1.73 m2 6 BUN/Creatinine Ratio 3 Glucose 260 H Calculated Osmolality 288 Calcium 8.1 L Phosphorus 6.0 H Magnesium 2.5 Total Bilirubin 0.31 AST 38 H ALT 28 Alkaline Phosphatase 122 H Creatine Kinase 45 Troponin T 0.080 Total Protein 5.5 L Albumin 3.6 Globulin 1.9 Albumin/Globulin Ratio 1.9 TSH Orders Category Date Time Status Nursing- Obtain EKG once Care 03/01/19 15:45 Active Restart Infusion If As Ordered Care 03/01/19 17:26 Active Saline Loc NOW Care 03/01/19 15:45 Active Renal Diet Diet 03/01/19 17:30 Active CHEST-PORTABLE [RAD] Stat Exams 03/01/19 15:46 Completed CBC WITH ELECTRONIC DIFF [HEME] Stat Lab 03/01/19 15:45 Completed CK PROFILE [SP CHEM] Stat Lab 03/01/19 17:03 Completed COMPREHENSIVE METABOLIC PANEL [CHEM] Stat Lab 03/01/19 17:03 Completed MAGNESIUM [CHEM] Stat Lab 03/01/19 17:03 Completed PHOSPHORUS [CHEM] Stat Lab 03/01/19 17:03 Completed PRO B-NATRIURETIC PEPTIDE Stat Lab 03/01/19 16:50 Received PROTIME WITH INR [COAG] Stat Lab 03/01/19 15:45 Completed PTT [COAG] Stat Lab 03/01/19 15:45 Completed TROPONIN T Stat Lab 03/01/19 17:03 Completed TSH Stat Lab 03/01/19 15:45 Completed Diltiazem 100 mg/Ns [Cardizem 100 mg/Ns] Med 03/01/19 17:30 Ordered 100 mg in 100 ml IV As Directed mls/hr Diltiazem [Cardizem] Med 03/01/19 15:46 Discontinued 20 mg IV NOW ONE Diltiazem [Cardizem] Med 03/01/19 17:26 Discontinued 20 mg IV NOW ONE Enoxaparin [Lovenox] Med 03/01/19 15:48 Discontinued 60 mg SUBQ NOW ONE EKG [EKG] Stat Ther 03/01/19 15:45 Draft Result Diagrams: 03/01/19 15:45 03/01/19 17:03 - REASSESSMENT Reassessment #1 Time Reassessed: 17:37 Status: unchanged (patient initially responded with decreased rate to 90s after cardizem 20mg IVP, then went back into RVR after about 30-45 minutes. Will re- bolus with Cardizem and place on drip. I spoke with family member over the phone. Patient is not happy being admitted, but will agree to it.) - EKG 1 Time of EKG reading by physician:: 15:33 EKG Read and Signed by:: Eh Santana EKG Interpretation (*Must complete 3 of following elements*): Abnormal Rate: 122 Rhythm: atrial fibrillation with rapid ventricular response [place]: normal QRS: other (low voltage) Comments: cannot rule out anterior infarct, age undetermined - XRAY 1 XRAY Study: Chest Impression: See EMR Report ( EXAM: CHEST-PORTABLE 03/01/2019 HISTORY: sob TECHNIQUE: AP portable upright at 1626 COMMENT: The inspiration is suboptimal. There is a Port-A-Cath on the left. There is a graft present over the right apex. The appearance the chest has not changed significantly considering differences in inspiration and technique since 01/23/2019. IMPRESSION: Stable chest. Electronically signed by Dre Rodriguez 03/01/2019 4:33 PM 03/01/19 1633 Interpreting Physician: Dre Rodriguez MD Dictated Date/Time: 03/01/19 1631 cc: Eh Santana MD; Lakihsa Adams MD) - CONSULTS/PCP/HOSPITALIST Notification #1 *Consult/PCP/Hospitalist*: Joni (material control manager for [facility]) Time Discussed: 17:36 Consult Disposition: Will see in ED #2 Consult: Cristina paged at 1730 Departure - Departure Date of Disposition Decision: 03/01/19 Time of Disposition Decision: 17:38 DIAGNOSIS: Paroxysmal atrial fibrillation with RVR, Dyspnea on exertion, ESRD on hemodialysis Disposition: ADMITTED INPATIENT 09 Certified Medical Emergency: Emergent Condition: Fair Referrals and Follow-Ups: Lakisha Adams MD [Primary Care Provider] - - Critical Care Note This patient required my direct & personal management of CC.: Yes Total Time (mins): 40 (cardiovascular system impaired) Critical Care Statement: This patient required my direct personal management to treat or rule out processes, the absence of which, could potentiallly result in sudden, clinically significant life or limb threatening deterioration. Attestation - Physician/ GABRIELA Attestation Patient care was provided by Advanced Practice Provider:: No The physician spent face to face time with patient:: Yes Advanced Practice Provider documentation review:: Supervising physician onsite and consulted in the evaluation and care of this patient. The physician did have a face to face encounter with the patient. This chart was documented by the indicated scribe, (Zohreh Marshall, Kevin) and accurately reflects the services I performed and decisions made by me, Eh Santana MD, as attested by the provider's signature.
--- NOTE | 2019-03-01 19:40 | HISTORY AND PHYSICAL ---
CHIEF COMPLAINT: Was sent in by surgeon for elevated heart rate with atrial fibrillation. HISTORY OF PRESENT ILLNESS: The patient is a 78-year-old white female followed by Dr. Pippa Adams. The patient is a dialysis patient and apparently has had some clotting of her fistula on the right and was sent to see a surgeon in [place] regarding that. While there, her heart rate was elevated, and she was noted to be in atrial fibrillation. She was admitted to the hospital back on January 09 with her apparent first episode of atrial fibrillation with RVR at that time. She saw Dr. Duncan and was placed on Eliquis 2.5 mg b.i.d. and Toprol-XL at 50 mg daily. Apparently heart rate was controlled at discharge, but has become elevated unbeknownst to the patient. She denies shortness of breath, has been eating well, stooling well, was sent in due to elevated heart rate by the surgeon. MEDICATIONS: Prior to admission are Synthroid 175 mcg daily, Doxepin 10 mg at bedtime, folic acid with B complex 1 daily, vitamin C 1 p.o. daily, Robaxin 500 mg p.o. b.i.d., Novolin 70/30 insulin 15 units subcutaneous b.i.d. by patient report, Neurontin 100 mg p.o. b.i.d., Imdur 30 mg p.o. daily, Toprol-XL 50 mg p.o. daily, Pletal 50 mg p.o. b.i.d., [place] 10 p.o. q.8 hours p.r.n. pain per [facility], Protonix 40 mg p.o. daily, Norvasc 10 mg p.o. daily, Eliquis 2.5 mg p.o. b.i.d., Sevelamer 800 mg 2 p.o. t.i.d. with meals. ALLERGIES: To allopurinol, fenofibrate, morphine, penicillin, Crestor, Percodan, Dilaudid, Lipitor PAST MEDICAL HISTORY: 1. New onset atrial fibrillation in January 2019. 2. Chronic back pain on chronic pain medicine per the [facility]. 3. End-stage renal disease on hemodialysis per Dr. Marquez, right AV shunt graft. 4. Hypertension. 5. Hyperlipidemia. 6. Type 2 diabetes mellitus. 7. Hypothyroidism. 8. Chronic peripheral neuropathy lower extremities. 9. Peripheral arterial disease. PAST SURGICAL HISTORY: 1. Back surgery. 2. Knee surgery. 3. Hysterectomy. 4. Cholecystectomy. 5. Cataract surgery. FAMILY HISTORY: Noncontributory. SOCIAL HISTORY: The patient denies alcohol and tobacco use. She [place] in the local area. She is . REVIEW OF SYSTEMS: Negative except as above. PHYSICAL EXAMINATION: VITAL SIGNS: Afebrile, temperature 99.1 degrees, pulse in the 130s to 140s, coming down to the 112 range at admission after receiving Cardizem 20 mg IV x2 doses, respirations 18, blood pressure 117/82, O2 saturation 100%. GENERAL: Moderately obese white female in no acute distress. SKIN: Minimal redness over the lower extremities. HEENT: PERRL. EOMI. Sclerae clear. TMs occluded with cerumen bilaterally. OP: No redness. Tongue in the midline. Dental appliance in place upper aspect. NECK: No LA, TMG, JVD, bruits. CARDIOVASCULAR: Irregularly irregular tachycardia. LUNGS: CTA. BACK: No CVA tenderness. ABDOMEN: Protuberant, soft, NT, ND. No mass. No HSM. BREASTS/PELVIC/RECTAL: Deferred. EXTREMITIES: No CCE. Decreased peripheral pulses noted bilaterally. AV fistula right arm. NEUROLOGIC: CN 2 through 12 intact. Nonfocal. Moves all extremities well. IMAGING: Chest x-ray: No acute change. Suboptimal inspiration. Graft present right apex. Chest fairly clear. EKG shows atrial fibrillation with rapid ventricular response. Heart rate of 122. LABORATORY DATA: Shows white count of 5.33, hemoglobin 11.6, hematocrit 38.7, MCV 101, platelets 299,000, neutrophils 58, lymphocytes 26. INR 1.04. PTT 35.4, PT 14.4. Sodium 138, potassium 5.1, chloride 97, CO2 23, BUN 22, creatinine 6.5, glucose 260, calcium 8.1, phosphorus 6.0, magnesium 2.5, total bilirubin 0.31, AST 38, ALT 28, alkaline phosphatase 122. CK total is 45, troponin 0.08. ProBNP 91. Total protein 5.5, albumin 3.6, TSH 6.06, free T4 was done 1 month ago and was 1.19. ASSESSMENT: 1. Persistent atrial fibrillation with recurrent rapid ventricular response. 2. End-stage renal disease on hemodialysis. 3. Problem with right arteriovenous graft fistula, right arm. 4. Chronic back pain. 5. Hypertension. 6. Hyperlipidemia. 7. Insulin-requiring diabetes mellitus. 8. Hypothyroidism. 9. Peripheral neuropathy lower extremities. 10. Peripheral arterial disease. PLAN: We will admit the patient to the [facility] on telemetry, monitor serial cardiac enzymes and troponin levels. We will continue Cardizem, but we will give IV maintenance medication there. She has received 1 dose of Lovenox at 1 mg/kg through the ER and will resume her Eliquis in the morning. Hold her Toprol-XL. Otherwise, continue her home medications. cc: Cedric Quinones MD
[2019-03-01] MEDS ORDERED: SINEQUAN PO SCH (23:11)
[2019-03-01] MEDS ORDERED: ZOFRAN IV PRN (23:11)
[2019-03-01] MEDS ORDERED: NORCO-10 PO PRN (23:11)
[2019-03-01] MEDS ORDERED: TYLENOL PO PRN (23:11)
[2019-03-02] MEDS: HUMULIN 70/30 SUBQ SCH ×2 (00:30→08:22)
[2019-03-02] MEDS: ROBAXIN PO SCH ×2 (00:30→08:22)
[2019-03-02] MEDS: NEURONTIN PO SCH ×2 (00:30→08:22)
[2019-03-02] MEDS: PLETAL PO SCH ×2 (00:30→08:22)
[2019-03-02] MEDS: ELIQUIS PO SCH ×2 (00:31→08:22)
[2019-03-02] MEDS ORDERED: INSULIN PEN NEEDLES ONE (00:31)
[2019-03-02] MEDS: HUMULIN R SUBQ SCH ×3 (00:31→13:46)
[2019-03-02] MEDS: PROTONIX PO SCH ×2 (05:57→06:09)
[2019-03-02] MEDS: SYNTHROID PO SCH ×2 (05:57→06:09)
[2019-03-02] MEDS ORDERED: HEPARIN IV PRN (07:48)
[2019-03-02] MEDS ORDERED: TIGHT: 0.2 ML/HR FOR DIALYSIS MISC PRN (07:48)
[2019-03-02] MEDS ORDERED: NS 2,000 ML MISC PRN (07:48)
[2019-03-02 08:16] VITALS: BP 101/43
[2019-03-02] MEDS ORDERED: NEPHRO-VITE PO SCH (09:00)
[2019-03-02] MEDS ORDERED: RENAGEL PO SCH (09:00)
[2019-03-02] MEDS ORDERED: ASPIRIN EC PO SCH (09:00)
[2019-03-02] MEDS ORDERED: IMDUR PO SCH (09:00)
--- NOTE | 2019-03-02 14:29 | NEPHROLOGY CONSULTATION ---
DATE: 03/02/2019 REASON FOR ADMISSION: Atrial fibrillation with rapid ventricular response. REASON FOR CONSULTATION: Assist with management, chronic kidney disease 5D. CONSULTING PHYSICIAN: Dr. Adams. HISTORY OF PRESENT ILLNESS: This is a 78-year-old female, well known to our service for end-stage renal disease on hemodialysis on a Tuesday, Tuesday, Tuesday schedule. The patient apparently had episodes of atrial fibrillation with rapid ventricular response back in early January. Patient was placed on beta-blockers and anticoagulant. She had control of heart rate. Yesterday, she had elevated heart rate. The patient did not recognize it, did not have any change in sensation. She was at [facility] regarding fistula repair. She came in secondary to this and was initially found to have a heart rate in the 110s. She has been placed on Cardizem drip, evaluated overnight. Heart rate today is back down into the 80s to 60s. Today is the patient's routine dialysis day. We are assisting with management. PAST MEDICAL HISTORY: 1. CKD 5D, Tuesday, Tuesday, Tuesday. 2. Atrial fibrillation. 3. Recent onset chronic back pain. 4. Hypertension. 5. Hyperlipidemia. 6. Type 2 diabetes. 7. Hypothyroidism. 8. Peripheral neuropathy. 9. Peripheral artery disease. PAST SURGICAL HISTORY: 1. Back surgery. 2. Knee surgery. 3. Hysterectomy. 4. Cholecystectomy. 5. Cataract surgery. 6. She has had an AV shunt to the right upper extremity. ALLERGIES: Extensive list, please see chart for complete list but they do include 1. Allopurinol. 2. Fenofibrate. 3. Morphine. 4. Penicillin. 5. Crestor. 6. Percodan. 7. Dilaudid. 8. Lipitor. HOME MEDICATIONS: Listed as 1. Synthroid. 2. Doxepin. 3. Folic acid. 4. Vitamin C. 5. Robaxin. 6. NovoLog. 7. Neurontin. 8. Imdur. 9. Toprol. 10. Pletal. 11. [place]. 12. Protonix. 13. Norvasc. 14. Eliquis. 15. Sevelamer. FAMILY HISTORY: Noncontributory. SOCIAL HISTORY: No ETOH, tobacco or illicit drug use. She does have chronic pain medications through the [facility]. REVIEW OF SYSTEMS: Essentially negative. PHYSICAL EXAMINATION: Vital Signs: Temperature 97.5 degrees, current pulse 81, respiratory rate 15, blood pressure 95/44. Intake 36 mL, output not measured. General: This is an elderly female, sitting up in bed. She is awake and alert. She does not appear in any distress. HEENT: Normocephalic, atraumatic. She has reactive pupils. Oral mucosa is moist. Neck: Supple without JVD. Cardiovascular: She has an irregularly irregular rhythm. She has a controlled rate currently. Pulmonary: Clear bilaterally. Remains on O2 supplementation via nasal cannula. She has no increased work of breathing. Abdomen: Obese, soft, with positive bowel sounds. Genitourinary: Not inspected. Minimal void. Extremities: No clubbing, cyanosis, or edema. She has an AV graft right upper extremity. Integumentary: Skin is warm and dry otherwise. Neurologic: Grossly nonfocal. LABORATORY DATA: WBC of 5.3, hemoglobin 11.6. Sodium 138, potassium 5.1, CO2 23, creatinine 6.5. ASSESSMENT AND PLAN: 1. Chronic kidney disease 5D. Today is her routine dialysis day. We will try to dialyze her on a 2 K bath/UF to her dry weight 3.5 hour treatment. There is some question as far as functionality over graft. Could not determine from the patient if she actually had that corrected over in [place] or not. 2. Atrial fibrillation with rapid ventricular response, currently controlled rate. Followed by Cardiology. 3. Electrolytes, acid-base balance. These are acceptable. See above for plan. Seen during dialysis. rg Dictated by NATHALIA Calhoun for Malcolm Marquez MD Face to face encounter, data reviewed, discussed with Dvaid Serrano on 03/02/19. I agree with the above assessment and plan of care. rg cc: MD Cedric Oswald MD MTDD
--- NOTE | 2019-03-04 19:04 | DISCHARGE SUMMARY ---
ADMISSION DATE: 03/01/2019 DISCHARGE DATE: 03/02/2019 DISCHARGING DIAGNOSIS: Rapid atrial fibrillation, rate controlled on anticoagulation. SECONDARY DIAGNOSES: 1. Chronic back pain, under the [facility]. 2. End-stage kidney disease, on dialysis through the right AV graft. 3. Hypertension. 4. Hyperlipidemia. 5. Type 2 diabetes. 6. Hypothyroidism. 7. Peripheral arterial disease. 8. Chronic neuropathy pain in both legs. BRIEF HISTORY: Please see the History and Physical that was done by Dr. Quinones. In brief, she is a 78-year-old white female with multiple medical problems. Went to [facility] to repair the AV fistula on the right side. During that time the patient was found to have rapid atrial fibrillation, transferred to [facility] for evaluation. The patient has known history of atrial fibrillation since 01/09/2019. The patient had a workup by Dr. Duncan. At this time, the treatment was relegated to rate control with anticoagulation. The rest of the hospital course was uneventful. Patient has hemodialysis and after that the patient was discharged home in a stable condition. LABS: As follows: CBC: White cell count 5.3, hematocrit 38, platelets 299,000. PT 14, INR 1.0, PTT 35. Sodium 138, potassium 5.1, BUN 22, creatinine 6.5. Cardiac enzymes were negative. ProBNP 9000. TSH is slightly elevated. DISCHARGE INSTRUCTIONS: As follows: Synthroid 175 mcg daily, doxepin 10 at bedtime, multivitamin complex 1 tablet daily, Robaxin 500 p.o. b.i.d., Novolin 70/30 50 units subcutaneous b.i.d., Neurontin 100 p.o. b.i.d., Imdur 30 mg daily, Toprol XL 50 daily, Pletal 50 p.o. b.i.d., Protonix 40 daily, aspirin 81 mg daily, [place] 800 p.o. daily, Eliquis 2.5 p.o. b.i.d., [place] as needed for pain. Continue to monitor dialysis through Dr. Marquez. Control the diabetes in my office. Living Will, reported as DNR. cc: MD Cedric Arshad MD Peter Johnson, MD Reginald D. Gladish, MD MTDD
== END 2019-03-02 15:23 | disposition home or self-care (01) ==
LOC: ED 15:23 → EDIPHOLD 22:16 → INTOOBSV 22:16 → 3S 22:55
PROVIDERS: ADMIT Family Medicine; ATTEND Internal Medicine
CPT/HCPCS: 71010; 71045; 80053; 82550; 82948; 83735; 83880; 84100; 84443; 84484; 85025; 85610; 85730; 93005; 94761; A9270; J1644; J1650; J7030; XXXXX

== ENCOUNTER 2019-03-21 18:34 | Inpatient (IN) ==
[2019-03-21] MEDS ORDERED: MORPHINE IV ONE (18:40)
[2019-03-21] MEDS ORDERED: CARDIZEM IV ONE (18:47)
[2019-03-21 18:58] LABS: BASO# 0.03 X1000 (0.0-0.2); BASO% 0.4 % (0.0-0.8); EOS# 0.03 X1000 (0.0-0.7); EOS% 0.4 % (0.0-10.0); HEMATOCRIT 37.3 % (37.0-47.0); HEMOGLOBIN 11.8 g/dL (12.0-16.0); IMM GRAN# 0.04 X1000 (0.0-0.04); IMM GRAN% 0.5 % (0.0-0.5); LYMPH# 0.98 X1000 (1.2-3.4); LYMPH% 12.9 % (20.5-51.1); MCHC 31.6 g/dL (33-37); MCV 97.9 FL (81-99); MONO% 10.5 % (1.7-9.3); MPV 10.5 FL (7.4-10.4); NEUT# 5.74 X1000 (1.4-6.5); NEUT% 75.3 % (42.2-75.2); PLT 219 X1000 (130-400); RBC 3.81 XMIL (4.2-5.4); RDW 17.1 % (11.5-14.5); WBC 7.62 X1000 (4.8-10.8)
[2019-03-21] MEDS ORDERED: NS 1,000 ML IV ONE (19:26)
[2019-03-21] MEDS ORDERED: VANCOMYCIN 1 GM/NS 1 GM/250 ML IVPB IV ONE (19:26)
[2019-03-21] MEDS ORDERED: ZOSYN 2.25 GM in NS 50 ML IV ONE (19:26)
[2019-03-21 19:31] LABS: ALBUMIN 3.7 g/dL (3.5-5.0); CALCIUM 8.3 mg/dL (8.8-10.2); CREATININE 3.5 mg/dL (0.5-0.9); POTASSIUM 3.7 mmol/L (3.5-5.1); TOTAL BILIRUBIN 0.6 mg/dL (0.20-1.00)
[2019-03-21 19:35] LABS: INR 1.01; PROTIME 13.8 Seconds (11.0-16.0)
[2019-03-21 19:36] LABS: PTT 34.1 Seconds (22.3-41.8)
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
--- NOTE | 2019-03-21 20:44 | Diag Imaging Result Doc PS360 ---
EXAM: CT THORAX/ABD/PELVIS W/O CON 03/21/2019 HISTORY: ESRD pt, sepsis TECHNIQUE: This exam was performed using automated exposure control, adjustment of mA or kV according to patient size, and/or use of iterative reconstruction technique. COMMENT: Evaluation of the vascularity is limited due to the lack of intravenous contrast. The thoracic aorta is normal in caliber and there is no evidence of abnormal fluid collections in the mediastinum. There is a right pleural effusion which was also present at the time the previous study of 04/05/2014. The pericardial effusion present at the time the previous study is no longer present however. There are some linear opacities in the left base which are probably due to fibrosis and were present previously. There is no evidence of pneumothorax. There are some calcified granulomata. There is some pleural based interstitial opacity in the left upper lobe laterally which was not apparent on the previous study. This may represent mild pulmonary edema or fibrosis. Otherwise are has been no significant change in the appearance the lungs. There is a stent in the subclavian and innominate vein on the right. The ribs appear to be intact. There is a Port-A-Cath on the left with its tip in the superior vena cava. There are spondylotic changes in the thoracic spine. ABDOMEN: There are granulomata in the spleen. There is extensive arteriosclerosis. The aorta is not distended. There is hydronephrosis and cystic dysplasia of the right kidney which is apparently due to distal ureteral obstruction. There is no evidence of hydronephrosis on the left. There is retained fluid and gas in the stomach. There are some calcifications in the pancreas which is generally atrophic in appearance. There are no previous abdominal studies available for comparison. There is no evidence of bowel obstruction or significant adenopathy. There are spondylotic changes in the lumbar spine which appear to be fused caudally. Pelvis: There is some stool in the rectosigmoid colon. There is no evidence of free fluid. There has been hysterectomy. The urinary bladder is not distended. The appendix is not identified. This was also the case on the previous pelvic CT of 11/22/2016. The bony pelvis is stable in appearance. IMPRESSION: 1. Nonspecific interstitial opacity in the left upper lobe. Chronic right pleural effusion. 2. Chronic obstruction of the right kidney with severe chronic hydronephrosis. No evidence of acute intra-abdominal or pelvic disease. Electronically signed by Dre Rodriguez 03/21/2019 8:41 PM
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
--- NOTE | 2019-03-21 20:52 | Diag Imaging Result Doc PS360 ---
EXAM: CHEST-1 VIEW 03/21/2019 HISTORY: r/o sepsis TECHNIQUE: AP chest COMMENT: There is blunting of the right costophrenic angle and some ill defined opacity over the right hemidiaphragm similar in appearance to 03/01/2019. IMPRESSION: Stable chest. Electronically signed by Dre Rodriguez 03/21/2019 8:50 PM
--- NOTE | 2019-03-21 20:53 | Diag Imaging Result Doc PS360 ---
EXAM: FOOT 2 VIEWS LEFT 03/21/2019 HISTORY: r/o osteo left great toe TECHNIQUE: Left foot two views COMMENT: There is extensive arteriosclerosis. There is dorsal spurring of the calcaneus. There is no evidence of erosion fracture or dislocation. IMPRESSION: No evidence of acute bony abnormality. Electronically signed by Dre Rodriguez 03/21/2019 8:51 PM
[2019-03-21 21:08] LABS: BILIRUBIN URINE NEGATIVE (NEGATIVE); BLOOD URINE 4+ (NEGATIVE); CLARITY VERY CLOUDY (CLEAR); COLOR YELLOW; GLUCOSE URINE NEGATIVE (NEGATIVE); KETONE URINE TRACE mg/dL (NEGATIVE); LEUKOCYTES URINE 2+ (NEGATIVE); NITRITE URINE NEGATIVE (NEGATIVE); PH URINE 6.5; PROTEIN URINE 2+(100 mg/dL) mg/dL (NEGATIVE); SP GRAVITY URINE 1.005; UROBILINOGEN URINE NORMAL
[2019-03-21 21:35] LABS: URINE SOURCE CATH
[2019-03-21 21:39] LABS: URINE EPITHELIAL CELLS <10 /HPF (<10); URINE RBC 20-40 /HPF (<10); URINE WBC TNTC /HPF (<10)
[2019-03-21 21:40] LABS: URINE BACTERIA 4+ /HFP; URINE CAST GRANULAR PRESENT /LPF; URINE CRYSTAL NONE SEEN /HPF; URINE YEAST NONE SEEN /HPF
[2019-03-21 21:41] LABS: URINE SMALL ROUND CELLS TRANSITIONAL PRESENT
[2019-03-21] MEDS ORDERED: NORCO-10 PO ONE (22:23)
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
[2019-03-22] MEDS ORDERED: TYLENOL PO PRN (05:56)
[2019-03-22] MEDS ORDERED: ZOFRAN IV PRN (05:56)
[2019-03-22] MEDS ORDERED: NS NEB INH SCH (06:30)
[2019-03-22] MEDS ORDERED: VANCOMYCIN IV PER PHARMACY MISC SCH (06:30)
[2019-03-22 06:40] LABS: BASO# 0.03 X1000 (0.0-0.2); BASO% 0.5 % (0.0-0.8); EOS# 0.07 X1000 (0.0-0.7); EOS% 1.2 % (0.0-10.0); HEMATOCRIT 36.2 % (37.0-47.0); HEMOGLOBIN 11.3 g/dL (12.0-16.0); IMM GRAN# 0.02 X1000 (0.0-0.04); IMM GRAN% 0.3 % (0.0-0.5); LYMPH# 1.36 X1000 (1.2-3.4); LYMPH% 23.5 % (20.5-51.1); MCHC 31.2 g/dL (33-37); MCV 99.2 FL (81-99); MONO# 0.76 X1000 (0.11-0.59); MONO% 13.1 % (1.7-9.3); MPV 10.1 FL (7.4-10.4); NEUT# 3.55 X1000 (1.4-6.5); NEUT% 61.4 % (42.2-75.2); PLT 220 X1000 (130-400); RBC 3.65 XMIL (4.2-5.4); RDW 17.5 % (11.5-14.5); WBC 5.79 X1000 (4.8-10.8)
[2019-03-22] MEDS: PROTONIX PO SCH (06:47)
[2019-03-22] MEDS: HUMULIN R SUBQ SCH ×4 (06:47→21:21)
[2019-03-22 06:56] LABS: HEMOGLOBIN A1C 6.2 % (4.8-6.0)
[2019-03-22 07:14] LABS: ALBUMIN 3.4 g/dL (3.5-5.0); CALCIUM 8.2 mg/dL (8.8-10.2); CREATININE 4.1 mg/dL (0.5-0.9); PHOSPHORUS 4.2 mg/dL (2.7-4.5); POTASSIUM 3.9 mmol/L (3.5-5.1)
--- NOTE | 2019-03-22 07:40 | EKG Report ---
Test Performed on : 03/21/2019 6:45:52 PM Test Reason : HURTING Blood Pressure : / mmHG Vent. Rate : 134 BPM Atrial Rate : 127 BPM P-R Int : 000 ms QRS Dur : 080 ms QT Int : 340 ms P-R-T Axes : 000 049 149 degrees QTc Int : 507 ms Atrial fibrillation. with rapid ventricular response. Low voltage QRS Cannot rule out Anterior infarct (cited on or before 03-MAY-2014) Abnormal ECG When compared with ECG of 01-MAR-2019 15:33, (Unconfirmed) No significant change was found Unconfirmed Result
[2019-03-22] MEDS ORDERED: AZACTAM 1 GM in NS 50 ML IV ONE (08:30)
[2019-03-22] MEDS: ZYVOX 600 MG/D5W 600 MG/300 ML IVPB IV SCH ×2 (09:20→21:16)
[2019-03-22] MEDS: TOPROL XL PO SCH (09:21)
[2019-03-22] MEDS: IMDUR PO SCH (09:21)
[2019-03-22] MEDS: NEPHRO-VITE PO SCH (09:21)
[2019-03-22] MEDS: SYNTHROID PO SCH (09:22)
[2019-03-22] MEDS: ROBAXIN PO SCH ×2 (09:22→21:16)
[2019-03-22] MEDS: ELIQUIS PO SCH ×2 (09:22→21:16)
[2019-03-22] MEDS: RENAGEL PO SCH ×3 (09:22→16:54)
[2019-03-22] MEDS: NEURONTIN PO SCH ×2 (09:22→21:16)
[2019-03-22] MEDS: ASPIRIN EC PO SCH (09:22)
[2019-03-22] MEDS: XOPENEX NEB INH SCH ×3 (09:33→22:05)
[2019-03-22] MEDS: ATROVENT NEB INH SCH ×3 (09:33→22:05)
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
--- NOTE | 2019-03-22 12:42 | NEPHROLOGY CONSULTATION ---
DATE: 03/22/2019 CONTINUATION REPORT #[id number]. HISTORY OF PRESENT ILLNESS: CT of the abdomen and thorax indicated some mild pulmonary edema with some interstitial left upper lobe opacity, hydronephrosis and cystic dysplasia to the right with a distal ureteral obstruction, no evidence on the left. Calcification of the pancreas, chronic right pleural effusion, COPD. CT of the lumbar spine indicated degenerative joint disease, ankylosis, sacroiliac joint. No evidence of acute fracture or subluxation. CT of the head, worsened encephalomalacia. No acute intracranial disease. EKG, she had a rate in the emergency room of 130s with atrial fibrillation noted as atrial fibrillation with rapid ventricular response. ASSESSMENT AND PLAN: 1. Chronic kidney disease 5D. Patient dialyzed per her routine yesterday. She has no absolute indications for intervention today. We will plan to dialyze her on Tuesday to keep her on schedule. 2. Ischemic right great toe. Followed by primary. Understand she will have a surgery consult Dr. Lucia to see today. 3. Electrolytes, acid-base balance, anemia. These are stable. Continue current treatment plan. Dictated by NATHALIA Calhoun for Malcolm Marquez MD Face to face encounter, data reviewed, discussed with David Serrano on 03/22/19. I agree with the above assessment and plan of care. cc: MD Mu Oswald MD [facility]
--- NOTE | 2019-03-22 19:17 | CONSULTATION ---
DATE OF CONSULTATION: 03/22/2019 HISTORY OF PRESENT ILLNESS: Ms Teresa Rivera is a 78-year-old morbidly obese, white female patient of Dr. DUNCAN Adams, who has end-stage renal disease and requires chronic hemodialysis. She was admitted with weakness and shortness of breath and has undergone extensive evaluation. We were asked to see her because of some cellulitis and chronic wounds involving her left great toe. On exam, Ms. Teresa Rivera is overweight. She is elderly. She has some work of breathing. She is sitting up, on nasal cannula O2. She is awake and cooperative. She has a right upper extremity AV access. Her abdomen is protuberant but soft without tenderness. Rectal and vaginal exams were not performed. She does have evidence of peripheral vascular disease involving her lower extremities with some red discoloration involving both feet. I cannot palpate her pedal pulses. She does have femoral pulses. She has 2 chronic ulcers involving her left great toe with some surrounding cellulitis. These ulcers appear to be superficial. There is no undrained purulence. IMPRESSION: Chronic ulcers, left great toe, in a patient with end-stage renal disease and peripheral vascular disease. I agree with conservative wound care and IV antibiotics for initial treatment of her left great toe. cc: MD Mu Joseph MD
[2019-03-22] MEDS ORDERED: SINEQUAN PO SCH (21:00)
[2019-03-22] MEDS: NS IV SCH (21:16)
[2019-03-22] MEDS: AZACTAM IV SCH (21:16)
[2019-03-23] MEDS: XOPENEX NEB INH SCH ×4 (03:30→22:58)
[2019-03-23] MEDS: ATROVENT NEB INH SCH ×4 (03:30→22:58)
[2019-03-23] MEDS: AZACTAM IV SCH ×3 (05:09→21:26)
[2019-03-23] MEDS: PROTONIX PO SCH ×2 (05:09→06:15)
[2019-03-23] MEDS: NS IV SCH ×3 (05:09→21:26)
[2019-03-23] MEDS ORDERED: HEPARIN IV PRN (06:15)
[2019-03-23] MEDS ORDERED: TIGHT: 0.2 ML/HR FOR DIALYSIS MISC PRN (06:15)
[2019-03-23] MEDS ORDERED: NS 2,000 ML MISC PRN (06:15)
[2019-03-23 06:20] LABS: FREE T4 0.97 ng/dL (0.93-1.70)
[2019-03-23] MEDS: HUMULIN R SUBQ SCH ×4 (06:32→21:26)
[2019-03-23 06:33] LABS: TSH 14.3 uIUmL (0.27-4.20)
[2019-03-23] MEDS: NEURONTIN PO SCH ×2 (13:41→21:26)
[2019-03-23] MEDS: RENAGEL PO SCH ×3 (13:41→16:52)
[2019-03-23] MEDS: TOPROL XL PO SCH (13:41)
[2019-03-23] MEDS: ZYVOX 600 MG/D5W 600 MG/300 ML IVPB IV SCH ×2 (13:41→21:26)
[2019-03-23] MEDS: ELIQUIS PO SCH ×2 (13:41→21:26)
[2019-03-23] MEDS: ROCALTROL PO SCH (13:42)
[2019-03-23] MEDS: IMDUR PO SCH (13:42)
[2019-03-23] MEDS: ASPIRIN EC PO SCH (13:42)
[2019-03-23] MEDS: ROBAXIN PO SCH ×2 (13:42→21:26)
[2019-03-23] MEDS: NEPHRO-VITE PO SCH (13:42)
[2019-03-23] MEDS: SYNTHROID PO SCH (13:43)
--- NOTE | 2019-03-23 15:52 | NEPHROLOGY PROGRESS NOTE ---
DATE: 03/23/2019 SUBJECTIVE: She is lying in bed. She states her pain is better in the feet but she has pain at the site of bruising on the left thigh. OBJECTIVE: Vital Signs: Blood pressure 117/71, heart rate 113, respirations 19, afebrile. General: No acute distress. Skin: Warm and dry. There is extensive bruising on the left lateral thigh. Neck: Neck veins are not appreciated. Heart: Regular. Lungs: Equal, no crackles. Abdomen: Soft, obese, nontender. Bowel sounds present. Extremities: No edema, clubbing, or cyanosis. IMPRESSION: Chronic kidney disease 5D. Dialysis today using her routine outpatient prescription. Blood pressure is acceptable. Electrolytes, acid-base, and anemia all in target. cc: MD Mu Oswald MD
[2019-03-23] MEDS: NORCO-7.5 PO PRN (17:56)
--- NOTE | 2019-03-23 20:23 | PROGRESS NOTE ---
DATE: 03/23/2019 SUBJECTIVE: Apparently, patient is bed-bound. She is hurting all over. The left great toe is slightly discolored. Ulcer is much improved. Apparently, there is no family at home. The daughter went back to [place]. The patient is insisting she will go back to snf. OBJECTIVE: On examination, temperature is 97 degrees, tachycardic, atrial fibrillation. Vitals are stable. 181 pounds, bed-bound. Physical exam no change. Left foot is basically slightly ischemic and redness noted. I looked at the arterial Doppler study scan of flat. Unable to assess the SIERRA because the patient is not cooperating. Blood sugar is 164. Vitamin D is low. TSH is slightly high. Free T4 is normal. Repeat urine cultures and blood cultures were negative. ASSESSMENT AND PLAN: 1. Left foot ischemic, mostly in the great toe, currently symptomatic treatment with aspirin, Eliquis, and intravenous Zyvox. 2. Atrial fibrillation. Continue aspirin, Eliquis, metoprolol. 3. Vitamin D deficiency, on Rocaltrol. 4. End-stage kidney disease, on hemodialysis as per Dr. Marquez. 5. Diabetes is stable. 6. Plan of care is [facility] for rehab placement on Tuesday. We will follow up. cc: Mu Adams MD
--- NOTE | 2019-03-23 21:18 | VASCULAR LAB ---
PROCEDURE NAME: Arterial Bilateral Legs - 03/22/2019 REFERRING PHYSICIAN: Dr. DUNCAN Adams. INDICATION: Chronic ulcers, left great toe, in a patient on hemodialysis. She also has cellulitis involving the left great toe. FINDINGS: This is a limited study secondary to the patient being uncooperative, with movement during the study. She also has noncompressible arteries in the lower extremities. She does have dialysis access in her right arm. Her left systolic brachial blood pressure was 123 mmHg. When looking at the pulse waveforms of the right calf, they were diminished, but present. The blood pressure at her ankle was greater than 250 mmHg on the right and greater than 250 mm on the left. She did have pulse waveforms involving the ankle bilaterally, but they were diminished. INTERPRETATION: This is a limited study, but the patient has obvious bilateral lower extremity peripheral vascular disease, especially of the small vessels below the knee bilaterally. These vessels are calcified and noncompressible. cc: MD Mu Joseph MD
[2019-03-24] MEDS: ATROVENT NEB INH SCH ×3 (03:13→15:32)
[2019-03-24] MEDS: XOPENEX NEB INH SCH ×3 (03:13→15:32)
[2019-03-24] MEDS: HUMULIN R SUBQ SCH ×4 (06:32→20:35)
[2019-03-24] MEDS: PROTONIX PO SCH (06:33)
[2019-03-24] MEDS: RENAGEL PO SCH ×3 (09:34→17:11)
[2019-03-24] MEDS: TOPROL XL PO SCH (09:34)
[2019-03-24] MEDS: ROCALTROL PO SCH (09:34)
[2019-03-24] MEDS: NEURONTIN PO SCH ×2 (09:34→20:35)
[2019-03-24] MEDS: ROBAXIN PO SCH ×2 (09:34→20:35)
[2019-03-24] MEDS: ZYVOX 600 MG/D5W 600 MG/300 ML IVPB IV SCH ×2 (09:34→20:35)
[2019-03-24] MEDS: IMDUR PO SCH (09:34)
[2019-03-24] MEDS: ASPIRIN EC PO SCH (09:34)
[2019-03-24] MEDS: ELIQUIS PO SCH ×2 (09:35→20:35)
[2019-03-24] MEDS: NEPHRO-VITE PO SCH (09:36)
[2019-03-24] MEDS: NS IV SCH ×3 (09:42→23:39)
[2019-03-24] MEDS: AZACTAM IV SCH ×3 (09:42→23:39)
[2019-03-24] MEDS: NORCO-7.5 PO PRN ×2 (10:52→23:44)
[2019-03-24] MEDS: SYNTHROID PO SCH (12:14)
--- NOTE | 2019-03-24 22:09 | PROGRESS NOTE ---
DATE: 03/24/2019 SUBJECTIVE: I am seeing Ms Rivera at fill in place of Dr. Adams, who is out this weekend. She is currently resting and appears stable. She is arousable. Moderate moderate obesity. OBJECTIVE: CV: Irregularly irregular. Lungs: Clear. Abdomen: Nontender, nondistended. Extremities: No calf tenderness, cords or edema. There is some necrosis of the left distal toe. She moves all extremities. Again, she is drowsy and asleep currently, but arousable. LAB DATA: None today. ASSESSMENT: 1. Ischemic left great toe. 2. Chronic atrial fibrillation. 3. End-stage renal disease on hemodialysis per Dr. Marquez. 4. Vitamin D deficiency. 5. Insulin-dependent diabetes mellitus. 6. Hypothyroidism. PLAN: 1. Patient remains on full treatment per antibiotics of aztreonam and Zyvox. She is to continue her hemodialysis treatments 3 times a week per Dr. Marquez. 2. She is on Synthroid with adjusted dose per Dr. Adams. 3. She is receiving aspirin and Eliquis for her toe as well and is followed by the wound care nurse and by surgery as well, Dr. Lucia. 4. Will continue to follow and assist as we can she. 5. Blood sugars are good at this point on her sliding scale insulin. cc: MD Mu Patel MD
[2019-03-25] MEDS: XOPENEX NEB INH SCH ×5 (00:22→23:50)
[2019-03-25] MEDS: ATROVENT NEB INH SCH ×5 (00:22→23:50)
[2019-03-25] MEDS: PROTONIX PO SCH (06:20)
[2019-03-25] MEDS: SYNTHROID PO SCH (06:20)
--- NOTE | 2019-03-25 07:36 | NEPHROLOGY PROGRESS NOTE ---
DATE: 03/24/2019 SUBJECTIVE: Some pain but much better following surgery. No nausea or vomiting. States she has not been up today. OBJECTIVE: Vital Signs: Blood pressure 124/73, heart rate 94, respiration 18, afebrile. Generally: Acute distress. Skin: Warm and dry. Neck: Neck veins are not distended. Heart: Regular. No gallops. Lungs: Equal. No crackles. Abdomen: Soft, nontender. Bowel sounds present. Extremities: No edema, clubbing, or cyanosis. IMPRESSION AND PLAN: Chronic kidney disease, 5D. Her next planned dialysis treatment will be Tuesday. Appears euvolemic on exam. No new lab data. cc: MD Mu Oswald MD
[2019-03-25] MEDS: RENAGEL PO SCH ×3 (10:18→17:51)
[2019-03-25] MEDS: ZYVOX 600 MG/D5W 600 MG/300 ML IVPB IV SCH ×2 (10:18→20:49)
[2019-03-25] MEDS: NEPHRO-VITE PO SCH (10:19)
[2019-03-25] MEDS: AZACTAM IV SCH ×3 (10:19→23:16)
[2019-03-25] MEDS: ELIQUIS PO SCH ×2 (10:19→20:49)
[2019-03-25] MEDS: NEURONTIN PO SCH ×2 (10:19→20:49)
[2019-03-25] MEDS: ROBAXIN PO SCH ×2 (10:19→20:49)
[2019-03-25] MEDS: NS IV SCH ×3 (10:19→23:16)
[2019-03-25] MEDS: TOPROL XL PO SCH (10:20)
[2019-03-25] MEDS: ROCALTROL PO SCH (10:20)
[2019-03-25] MEDS: IMDUR PO SCH (10:20)
[2019-03-25] MEDS: HUMULIN R SUBQ SCH ×4 (10:25→20:49)
[2019-03-25] MEDS: ASPIRIN EC PO SCH (10:51)
[2019-03-25] MEDS: NORCO-7.5 PO PRN ×2 (10:51→17:48)
--- NOTE | 2019-03-25 14:20 | PROGRESS NOTE ---
DATE: 03/25/2019 SUBJECTIVE: Patient is arousable. She complains of pain in her left 3rd finger distally and some discoloration, darkness there. OBJECTIVE: Vital signs: Afebrile, pulse 97, respirations 18, blood pressure 123/57, O2 saturation on 2 L 98%. CV: Irregularly irregular. Lungs: Mild rhonchi bilaterally. Abdomen: Nontender. Extremities: No edema. Left 1st toe darkness and scaliness is improved slightly. There is dark discoloration mild to the distal left 3rd finger and minimally to the right distal 3rd finger. Blood sugars acceptable, in the mid 100s primarily. ASSESSMENT: 1. Ischemic left great toe with ulceration, followed by Dr. Lucia. 2. Left and right 3rd finger discoloration, rule out secondary to peripheral artery disease, rule out embolic source. 3. Peripheral artery disease. 4. Chronic atrial fibrillation. 5. End-stage renal disease, on hemodialysis per Dr. Marquez. 6. Insulin-dependent diabetes mellitus. 7. Hypothyroidism. 8. Vitamin D deficiency. PLAN: Patient is on treatment of aztreonam, Zyvox, Eliquis, aspirin, and we will check echocardiogram in the morning to rule out valvular source of emboli. Continue Synthroid which has been upped during the hospitalization and continue hemodialysis per Dr. Marquez. Blood sugars are doing well on her insulin regimen. cc: MD Mu Patel MD
[2019-03-26] MEDS: ATROVENT NEB INH SCH ×4 (04:07→22:25)
[2019-03-26] MEDS: XOPENEX NEB INH SCH ×4 (04:08→22:24)
[2019-03-26] MEDS ORDERED: NS 2,000 ML MISC PRN (06:05)
[2019-03-26] MEDS ORDERED: HEPARIN IV PRN (06:05)
[2019-03-26] MEDS ORDERED: TIGHT: 0.2 ML/HR FOR DIALYSIS MISC PRN (06:05)
[2019-03-26] MEDS: PROTONIX PO SCH ×2 (06:10→06:12)
[2019-03-26] MEDS: HUMULIN R SUBQ SCH ×4 (06:11→21:00)
[2019-03-26] MEDS: SYNTHROID PO SCH (06:11)
[2019-03-26 08:20] LABS: ALBUMIN 2.9 g/dL (3.5-5.0); CALCIUM 8.6 mg/dL (8.8-10.2); PHOSPHORUS 4.8 mg/dL (2.7-4.5); POTASSIUM 5.1 mmol/L (3.5-5.1)
[2019-03-26 08:22] LABS: CREATININE 7.5 mg/dL (0.5-0.9)
[2019-03-26] MEDS: NORCO-7.5 PO PRN ×2 (08:25→21:06)
[2019-03-26] MEDS: ASPIRIN EC PO SCH (08:29)
[2019-03-26] MEDS: RENAGEL PO SCH ×3 (08:29→18:24)
[2019-03-26] MEDS: ROCALTROL PO SCH (08:29)
[2019-03-26] MEDS: ROBAXIN PO SCH ×2 (08:29→20:59)
[2019-03-26] MEDS: TOPROL XL PO SCH (08:30)
[2019-03-26] MEDS: ELIQUIS PO SCH ×2 (08:30→20:59)
[2019-03-26] MEDS: NEURONTIN PO SCH ×2 (08:30→20:59)
[2019-03-26] MEDS: NEPHRO-VITE PO SCH (08:30)
[2019-03-26] MEDS: IMDUR PO SCH (08:30)
[2019-03-26] MEDS: ZYVOX 600 MG/D5W 600 MG/300 ML IVPB IV SCH (14:29)
[2019-03-26] MEDS: NS IV SCH ×2 (15:01→16:42)
[2019-03-26] MEDS: AZACTAM IV SCH ×2 (15:01→16:42)
--- NOTE | 2019-03-26 16:57 | NEPHROLOGY PROGRESS NOTE ---
DATE: 03/26/2019 TIME SEEN: 0645. SUBJECTIVE: Ms. Rivera is resting quietly in bed. She states that she has general discomfort to her left hand and her left side secondary to multiple bruising and her left great toe. OBJECTIVE: Vital signs: Temperature 97.9 degrees, blood pressure 116/72, heart rate 62, respirations 15. She is on 3 L nasal cannula. Last recorded saturation is 92%. She has had 710 in. She has had 0 out with need for dialysis today. Labs: Sodium 133, potassium 5.1, chloride 96, CO2 21, BUN 32, creatinine 7.5, glucose 125. She has an anion gap is 16. Her calcium is 8.6, phosphorus 4.8, albumin 2.9. The patient has a previous hemoglobin of 11.3 on the . PHYSICAL EXAMINATION: General: This is a 78-year-old white female resting quietly in bed. She appears chronically ill, no acute distress. Skin: Warm and dry. HEENT: Normocephalic, atraumatic. Extremities: The patient has pain to her left middle ring finger, slightly swollen. Able to bend. Full extension and contraction. She does have bruising noted to her left side from her hip down in multi-stages of healing. No clubbing or cyanosis. She does have darkness noted to her left great toe, healing, with less reddened area to her other 4 toes on her left foot. Neurological: Alert and oriented x3. ASSESSMENT AND PLAN: 1. Chronic kidney disease stage 5D. The patient is due for her routine dialysis treatment today. We will place her on a 2 K bath. She is to dialyze for 3.5 hours. No indications for further intervention. 2. Electrolytes, acid-base balance, and anemia. These are all acceptable with electrolytes and acid-base balance corrected on dialysis. 3. Pain associated with ulcers to her left great toe and toes on left foot with peripheral vascular disease. The patient is currently on IV antibiotics. Followed by Surgery and Primary Care. I would like to thank you for allowing us to follow with this patient. Dictated by NATHALIA Davidson for Malcolm Marquez MD Face to face encounter, data reviewed, discussed with Negrita Villatoro on 03/26/19. I agree with the above assessment and plan of care. cc: NATHALIA Davidson MD Jagan Reddy, MD MTDD
[2019-03-26] MEDS: NITROGLYCERIN TOP SCH (19:29)
--- NOTE | 2019-03-26 20:31 | PROGRESS NOTE ---
DATE: 03/26/2019 SUBJECTIVE: Patient is seen under dialysis. She complains of 3rd finger on the left side is getting discolored. Left great toe still has chronic discoloration noted. It was noted over the weekend. REVIEW OF SYSTEMS: Otherwise none reported during dialysis. OBJECTIVE: Vital Signs: Temperature is 97 degrees. She is tachycardic. Blood pressure is 115/65. General: She is in moribund state, lying in the bed during dialysis. Heart: Sounds are irregularly irregular. Abdomen: Belly is soft, nontender. Extremities: Left foot still discolored. Decreased pulses and no obvious deficits. INVESTIGATIONS: Sodium 133, potassium 5.1, chloride 96, BUN 32, creatinine 7.5, glucose 257. Vitamin D is low. T4 is 0.9. TSH is slightly high. ASSESSMENT: 1. Generalized body pain. 2. Deconditioning. 3. Social issues about disposition. 4. End-stage kidney disease, on dialysis. 5. Left great toe ischemia. 6. Left 3rd finger Raynaud phenomenon. 7. Chronic atrial fibrillation. PLAN OF CARE: 1. Continue on Eliquis. 2. Intravenous antibiotics with Azactam and Zyvox. I am going to discontinue Azactam since it is cellulitis, most likely staphylococcus. 3. Nitro paste 1 topically for left 3rd finger. 4. Hypothyroidism, on Synthroid. Continue. TSH is slightly high. 5. Lump Room Supervisor consult for rehab placement. 6. I appreciated Dr. Lucia's consult. LEVEL OF DOCUMENTATION: [25] cc: Mu Adams MD MTDD
[2019-03-27] MEDS: ZYVOX 600 MG/D5W 600 MG/300 ML IVPB IV SCH ×2 (02:21→13:02)
[2019-03-27] MEDS: NITROGLYCERIN TOP SCH ×4 (03:20→18:21)
[2019-03-27] MEDS: ATROVENT NEB INH SCH ×4 (03:22→21:05)
[2019-03-27] MEDS: XOPENEX NEB INH SCH ×4 (03:22→21:05)
[2019-03-27] MEDS: SYNTHROID PO SCH (06:24)
[2019-03-27] MEDS: PROTONIX PO SCH (06:24)
[2019-03-27] MEDS: HUMULIN R SUBQ SCH ×4 (06:55→21:01)
[2019-03-27 07:08] LABS: ALBUMIN 3.1 g/dL (3.5-5.0); CALCIUM 8.2 mg/dL (8.8-10.2); CREATININE 4.5 mg/dL (0.5-0.9); PHOSPHORUS 3.9 mg/dL (2.7-4.5); POTASSIUM 4.3 mmol/L (3.5-5.1)
[2019-03-27] MEDS: ASPIRIN EC PO SCH (08:27)
[2019-03-27] MEDS: ELIQUIS PO SCH ×2 (08:27→22:38)
[2019-03-27] MEDS: RENAGEL PO SCH ×3 (08:27→18:21)
[2019-03-27] MEDS: NEURONTIN PO SCH ×2 (08:28→22:38)
[2019-03-27] MEDS: IMDUR PO SCH (08:28)
[2019-03-27] MEDS: ROBAXIN PO SCH ×2 (08:28→22:38)
[2019-03-27] MEDS: NEPHRO-VITE PO SCH (08:28)
[2019-03-27] MEDS: TOPROL XL PO SCH (08:29)
[2019-03-27] MEDS: ROCALTROL PO SCH (08:29)
[2019-03-27] MEDS: NORCO-7.5 PO PRN ×2 (08:34→15:07)
--- NOTE | 2019-03-27 14:18 | NEPHROLOGY PROGRESS NOTE ---
DATE: 03/27/2019 Time seen is 0645 SUBJECTIVE: Ms. Rivera is resting quietly in bed, head of the bed is slightly elevated. She has no complaints states except for left middle finger discomfort she believes is secondary to her recent fall. OBJECTIVE: Her most recent vital signs her last temperature 98.2 degrees, blood pressure 98/56, heart rate 101, respirations are 14, she is on 3 L nasal cannula, last recorded saturation is 99%, she has had 1070 in, 3.1 L removed on dialysis. LAB: Sodium 135, potassium 4.3, chloride 95, CO2 26, BUN 23, creatinine 4.5, glucose 179, anion gap of 14, calcium 8.2, phosphorus 3.9, albumin 3.1. Blood cultures are negative. PHYSICAL EXAMINATION: General: This is a 78-year-old white female resting quietly in bed in no acute distress. Skin: Warm and dry. HEENT: Normocephalic, atraumatic. Conjunctiva is pale, she has LUZMARIA. Mucous membranes are dry. Neck: Supple. Trachea midline. No evidence of JVD. Cardiovascular: She is regular rate and rhythm. No murmur or gallop appreciated. Lungs: Clear to auscultation bilateral. Equal excursion on O2. Abdomen: Soft, nontender. Positive bowel sounds. Genitourinary: Not inspected. Minimal void with dialysis assist. Extremities: Patient has middle finger on the left hand continues slightly swollen. She does have some type of a calcification at the tip. It appears to be a solid blister non movable, able to extend and contract her hands into a ball and a fist and straighten them back out without discomfort. She does have some bruising noted down her left hip and thigh and left upper arm. Neurologic: Alert and oriented x3. ASSESSMENT AND PLAN: 1. Chronic kidney disease stage 5D. The patient is due for her routine dialysis treatment in the a.m. 2. Electrolytes, acid-base balance and anemia. These are acceptable. 3. Pain associated with ulcers to her left toe and left hand followed by Surgery and the primary care. Like to thank you for allowing us to follow with this patient. Dictated by NATHALIA Davidson for Malcolm Marquez MD Face to face encounter, data reviewed, discussed with Negrita Villatoro on 03/27/19. I agree with the above assessment and plan of care. cc: NATHALIA Davidson MD Jagan Reddy, MD MTDD
--- NOTE | 2019-03-27 21:01 | PROGRESS NOTE ---
DATE: 03/27/2019 SUBJECTIVE: The patient is anxious to go home, still complains of left third finger and great toe pain. The patient was seen by Dr. Marquez. She is getting routine dialysis, and she is anxious to go home, but she did not have anybody to take care of her at home. I requested social work instructor for placement. REVIEW OF SYSTEMS: Negative other than left great toe and the 3rd finger pain. OBJECTIVE: Vitals: Temperature is 98 degrees, pulse is 96, blood pressure 106/53. She is in atrial fibrillation. She goes to rapid atrial fibrillation. Extremities: Left 3rd finger slightly discolored and left great toe also has chronic discoloration noted. INVESTIGATIONS: Sodium 135, potassium 4.3, BUN 23, creatinine 4.5, glucose 240. ASSESSMENT AND PLAN: 1. Left great toe pain due to peripheral artery disease. We will continue on Eliquis, aspirin instead of using low dose of Pletal. 2. Left 3rd finger appears to be Raynaud phenomenon. Keep the finger in hot water and nitroglycerin paste as needed. 3. Chronic atrial fibrillation on Eliquis 2.5 p.o. b.i.d. 4. Hypothyroidism on Synthroid. Currently patient is receiving IV antibiotics with Zyvox, and I was told she has a bed in [facility]. We will discharge tomorrow after the dialysis. We will do the paperwork. LEVEL OF DOCUMENTATION: 25 minutes. cc: Mu Adams MD
--- NOTE | 2019-03-27 23:43 | DISCHARGE SUMMARY ---
ADMISSION DATE: 03/21/2019 DISCHARGE DATE: DISCHARGING DIAGNOSIS: Left foot pain, mostly great toe with chronic ischemia due to underlying peripheral arterial disease. SECONDARY DIAGNOSES: 1. End-stage kidney disease ,on hemodialysis. 2. Chronic atrial fibrillation, on Eliquis. 3. Chronic back pain, on the Pain [facility]. 4. Left 3rd finger ischemia due to possible Raynaud with small vessel disease. 5. Right upper extremity AV shunt graft for dialysis. 6. Hypertension. 7. Hyperlipidemia. 8. Type 2 diabetes. 9. Hypothyroidism. 10. Chronic peripheral neuropathy. 11. Peripheral arterial disease. CONSULTS: 1. Dr. Malcolm Marquez. 2. Dr. Lucia. BRIEF HISTORY: Please see the H and P that was done on 03/21/2019. In brief, she is a 78-year- old white female with above problems, no family support. The daughter left to [place]. Came to the hospital with left foot pain, generalized body pain, depressed. She cannot take care of herself. Obviously, left foot showing some ischemic changes. She does has peripheral arterial disease, unable to do the full study. She has very calcified vessels and Dr. Lucia relegated to medical treatment with aspirin, Eliquis, and Pletal, low dose, and IV antibiotics given. She also has a similar problem with the 3rd finger. At this time, only medical management and if it fails to improve, needs further workup with a CT aortogram with runoff, either revascularization versus amputation of the great toe. LABS: 1. CBC: White cell count 5.7, hematocrit 36, platelets 220,000. Sedimentation rate is 35. Sodium 135, potassium 4.3, BUN 23, creatinine 4.5. Glucose 150. A1c on 03/22/2019 was 6.2. Calcium 8.2. Blood cultures were negative. 2. Arterial flow studies. The patient has bilateral lower extremity PAD, especially small vessel disease below-knee bilateral. The vessels are calcified and noncompressible. At the request of the family transferred to the rehab. If things will not improve, will do further workup. PLAN FOLLOWS: 1. Synthroid 175 mcg daily, doxepin 10 at bedtime, multivitamins 1 tablet daily, Robaxin 500 p.o. b.i.d., Novolin 70/30, 13 units subcutaneous b.i.d., Neurontin 2 capsules 100 p.o. b.i.d., isosorbide 30 mg daily, metoprolol, Toprol-XL 50 daily, aspirin 81 mg daily, Renagel 800 three tablets p.o. t.i.d., Eliquis 2.5 p.o. b.i.d., hydroxyzine 50 daily, Pletal 50 mg daily, and [place] 7.5 q.6 hours as needed. Local wound care and nitroglycerin paste on the 3rd finger on the left side. 2. Living will/Do Not Resuscitate. 3. If things do not get better, we will do the further workup. Patient is anxious to go for rehab. We will do the paperwork. cc: Mu Adams MD
[2019-03-28] MEDS: ZYVOX 600 MG/D5W 600 MG/300 ML IVPB IV SCH ×2 (02:15→14:58)
[2019-03-28] MEDS: NITROGLYCERIN TOP SCH ×4 (02:51→18:47)
[2019-03-28] MEDS: ATROVENT NEB INH SCH ×3 (05:39→15:11)
[2019-03-28] MEDS: XOPENEX NEB INH SCH ×3 (05:39→15:11)
[2019-03-28 06:11] LABS: ALBUMIN 2.8 g/dL (3.5-5.0); CALCIUM 9.1 mg/dL (8.8-10.2); PHOSPHORUS 4.2 mg/dL (2.7-4.5); POTASSIUM 4.7 mmol/L (3.5-5.1)
[2019-03-28] MEDS ORDERED: TIGHT: 0.2 ML/HR FOR DIALYSIS MISC PRN (06:26)
[2019-03-28] MEDS ORDERED: HEPARIN IV PRN (06:26)
[2019-03-28] MEDS ORDERED: NS 2,000 ML MISC PRN (06:26)
[2019-03-28 06:36] LABS: CREATININE 5.9 mg/dL (0.5-0.9)
[2019-03-28] MEDS: SYNTHROID PO SCH (06:42)
[2019-03-28] MEDS: PROTONIX PO SCH (06:42)
[2019-03-28] MEDS: HUMULIN R SUBQ SCH ×3 (06:47→18:47)
[2019-03-28] MEDS: NEPHRO-VITE PO SCH (09:26)
[2019-03-28] MEDS: RENAGEL PO SCH ×3 (09:26→18:48)
[2019-03-28] MEDS: TOPROL XL PO SCH (09:26)
[2019-03-28] MEDS: ROBAXIN PO SCH (09:26)
[2019-03-28] MEDS: IMDUR PO SCH (09:26)
[2019-03-28] MEDS: ASPIRIN EC PO SCH (09:26)
[2019-03-28] MEDS: ROCALTROL PO SCH (09:26)
[2019-03-28] MEDS: ELIQUIS PO SCH (09:26)
[2019-03-28] MEDS: NEURONTIN PO SCH (09:26)
[2019-03-28] MEDS: NORCO-7.5 PO PRN (09:31)
--- NOTE | 2019-03-28 10:30 | NEPHROLOGY PROGRESS NOTE ---
DATE: 03/28/2019 SUBJECTIVE: Ms. Rivera is resting quietly in bed. She has just had treatment to her left middle finger on her left hand. States that she is ready to go home. LABORATORY DATA: Sodium 133, potassium 4.7, chloride 94, CO2 of 23, BUN 33, creatinine 5.9, glucose is 211. The patient has an anion gap is 16. Her calcium is 9.1. Phosphorus 4.2. Albumin is 2.8. The patient has a previous hemoglobin of 11.3. OBJECTIVE: Most Recent Vital Signs: Temperature 97.6 degrees, blood pressure 110/51, heart rate 65, respirations 18. She is on 3 L nasal cannula. Last recorded saturation is 100%. She has had 360 in. She has had 0 recorded out. General: This is a 78-year-old white female who is resting quietly in bed. She appears in no acute distress. Skin: Warm and dry. HEENT: Normocephalic, atraumatic. Conjunctiva is pale. She has LUZMARIA. Mucous membranes are dry. Neck: Supple. Trachea midline. No evidence of JVD. Cardiovascular: Regular rate and rhythm. No murmur or gallop appreciated. Lungs: Clear to auscultation bilaterally. Equal excursion on O2. Abdomen: Soft, nontender. Positive bowel sounds. Genitourinary: Not inspected. Minimal void with dialysis assist. Extremities: Left middle finger continues slightly swollen with calcification at the tip, with an appearance of a solid blister. She is getting treatment on this. Left toe remains dressed, dry, and intact. Not inspected. Integumentary: Continues with ecchymosis down her left side, into her left leg. Neurological: She is alert and oriented x3. ASSESSMENT AND PLAN: 1. Chronic kidney disease stage 5D. The patient is due for her routine dialysis treatment today. We will place her on a 2-potassium bath. She is to dialyze for 3.5 hours. We will attempt to pull her to her outpatient dry weight. 2. Electrolytes, acid-base balance, and anemia. These are acceptable. 3. Pain related to ulcers of her left toe and hand, followed by Surgery. I would like to thank you for allowing us to follow with this patient. Dictated by NATHALIA Davidson for Malcolm Marquez MD Face to face encounter, data reviewed, discussed with Negrita Villatoro on 03/28/19. I agree with the above assessment and plan of care. cc: NATHALIA Davidson MD Jagan Reddy, MD MTDD
[2019-03-28 22:56] VITALS: BP 127/64
== END 2019-03-28 20:00 | DRG 299 ==
LOC: P.ED 18:34 → SUATTDRO 22:27 → 3S 22:27 → 1N 03-23 18:43
PROVIDERS: ADMIT Internal Medicine; ATTEND Internal Medicine
CPT/HCPCS: 70450; 71010; 71045; 71250; 72125; 72128; 72131; 73620; 74176; 80053; 80069; 81001; 82306; 82550; 82948; 83036; 83605; 83735; 84439; 84443; 84484; 85025; 85610; 85651; 85730; 87040; 87088; 93005; 93923; 94640; 94761; 94799; 96361; 96374; 96375; 99285; A9270; J1644; J2020; J2270; J2543; J3370; J7030; S0073; XXXXX

== ENCOUNTER 2019-06-05 13:48 | Inpatient (IN) ==
[2019-06-05] MEDS ORDERED: LOPRESSOR IV ONE ×2 (14:27→15:29)
--- NOTE | 2019-06-05 14:32 | PROVIDER DOCUMENTATION ---
HPI-General Adult - General Chief Complaint: Palpitations Stated Complaint: DR BLAKELY REFERRED Time Seen by Provider: 06/05/19 14:28 Source: patient Allergies/Adverse Reactions: Patient Allergies Allergy/AdvReac Type Severity Reaction Status Date / Time allopurinol Allergy Severe HIVES Verified 03/01/19 15:58 fenofibrate nanocrystallized Allergy Severe HIVES Verified 03/01/19 15:58 * [From Tricor] fenofibrate,micronized * Allergy Severe HIVES Verified 03/01/19 15:58 [From Tricor] morphine Allergy Severe HIVES Verified 03/01/19 15:58 Penicillins Allergy Severe HIVES Verified 03/01/19 15:58 rosuvastatin calcium * Allergy Severe kidney Verified 03/01/19 15:58 [From Crestor] failure aspirin [From Percodan] AdvReac Severe syncope Verified 03/01/19 15:58 hydromorphone HCl * AdvReac Severe hallucinati Verified 03/01/19 15:58 [From Dilaudid] ons oxycodone HCl * AdvReac Severe syncope Verified 03/01/19 15:58 [From Percodan] oxycodone terephthalate * AdvReac Severe syncope Verified 03/01/19 15:58 [From Percodan] atorvastatin calcium * AdvReac kidney Verified 03/01/19 15:58 [From Lipitor] failure Home Medications: Home Medication List Medication Instructions Recorded Confirmed Last Taken Type Levothyroxine Sodium [Synthroid] 175 mcg PO DAILY 05/03/14 03/22/19 03/20/19 History Doxepin [Sinequan] 10 mg PO HS 09/09/18 03/22/19 03/20/19 History Folic Acid/Vit Bcomp,C [Leida-Joanne 1 tab PO DAILY 09/09/18 03/22/19 03/20/19 History Tablet] Insulin NPH Hum/Reg Insulin Hm 13 units SQ BID 09/09/18 03/22/19 03/20/19 History [Novolin 70-30 Flexpen] Methocarbamol [Robaxin] 1 tab PO BID 09/09/18 03/22/19 03/20/19 History Gabapentin [Neurontin] 2 cap PO BID 09/10/18 03/22/19 03/20/19 History Isosorbide Mononitrate E.r. [Imdur] 30 mg PO DAILY #30 tab 09/10/18 03/22/19 03/20/19 Rx Metoprolol Succinate E.r. [Toprol 50 mg PO DAILY #30 tab 09/10/18 03/22/19 03/20/19 Rx Xl] Apixaban [Eliquis] 1 tab PO BID 03/01/19 03/22/19 03/20/19 History Aspirin [Aspirin EC] 1 tab PO DAILY 03/01/19 03/22/19 03/20/19 History Sevelamer [Renagel] 3 tab PO TID CC 03/01/19 03/22/19 03/20/19 History Hydroxyzine HCl 1 tab PO DAILY 03/21/19 03/22/19 03/20/19 History Cilostazol [Pletal] 50 mg PO DAILY #30 tab 03/28/19 Unknown Rx Hydrocodone/APAP 5 mg/325 mg 1 ea PO Q6H PRN PRN #20 tab 03/28/19 Unknown Rx [[place]-5] Clopidogrel Bisulfate [Plavix] 75 mg PO DAILY #30 tab 04/06/19 Unknown Rx Nitroglycerin 0.5 inch TOP Q12H oint...g. 04/06/19 Unknown Rx - History of Present Illness -Gen Adult Nature of Presenting Problems: This is a 78yo female with PMH of ESRD who presents from nephrology office with elevated heart rate. Patient currently denies symptoms including chest pain and shortness of breath. The patient reports that she was at the nephrology office to have her port opened and did not take her heart rate medication this morning. Location of Pain/Injury: reports: none Quality of Pain: reports: none Onset/Duration: reports: this afternoon Context/Activities at Onset: reports: other (did not take morning medications) Associated Symptoms: reports: denies symptoms Review of Systems - Adult - REVIEW OF SYSTEMS - ADULT Constitutional: denies: fever Eyes: reports: blurred vision Ears, Nose, Mouth & Throat: reports: no symptoms reported. denies: throat pain Cardiovascular: reports: no symptoms reported. denies: chest pain Respiratory: reports: no symptoms reported. denies: shortness of breath Gastrointestinal: reports: no symptoms reported. denies: abdominal pain Genitourinary: reports: no symptoms reported. denies: flank pain Musculoskeletal: reports: no symptoms reported. denies: back pain Integumentary: reports: no symptoms reported Neurological: reports: no symptoms reported. denies: headache/migraines Psychiatric: reports: no symptoms reported Endocrine: reports: no symptoms reported Hematologic/Lymphatic: reports: no symptoms reported Allergic/Immunologic: reports: no symptoms reported Past History - Adult - PAST MEDICAL HISTORY-ADULT Review of Records: reports: Old Records Reviewed Major Childhood Illnesses: reports: denies history Cardiovascular: reports: A-Fib, CHF, HTN Respiratory: reports: COPD Gastrointestinal: reports: denies history, GERD Obstetrical/Gynecological: reports: denies history Genitourinary: reports: dialysis, ESRD, kidney disease Musculoskeletal: reports: denies history Neurological: reports: denies history Psychiatric: reports: anxiety Endocrine/Immune: reports: Diabetes, thyroid disorder (hypo) Other Conditions: reports: denies history - PRIOR SURGERIES/PROCEDURES Surgical/Procedure History: reports: cholecystectomy, hysterectomy, , indwelling device (av fistula), orthopedic (extremity) (knees, bilateral carpal tunnel, thumb), back/neck, other (R nephrectomy) - IMMUNIZATION STATUS Childhood Immunizations: See Nurse Assessment Flu Vaccine: See Nurse Assessment - FAMILY HISTORY Family History: reviewed, not pertinent Physical Exam-General - PHYSICAL EXAM-ADULT Initial Vital Signs Reviewed: Yes - CONSTITUTIONAL General Appearance: appears well, alert, no apparent distress - EYES Eyes: negative: conjuctival exudate - HEAD, EARS, NOSE, MOUTH & THROAT HENMT: moist mucous membranes - RESPIRATORY Respiratory: normal breath sounds - CARDIOVASCULAR Cardiovascular: irregularly irregular, other (2+ LE edema) - GASTROINTESTINAL (ABDOMEN) Abdominal Exam: non tender, soft - SKIN Integumentary: other (necroic right great toe) - NEUROLOGIC Neurologic: grossly normal - PSYCHIATRIC Psych/Mental Status: normal mood/affect, normal thought content, normal thought process Progress - PLAN OF CARE/RESULTS Progress/Plan/Lab Results: Vital Signs - 8 hr 06/05/19 14:08 Temperature 98.3 F Pulse Rate 132 H Respiratory Rate 20 Blood Pressure 141/90 O2 Sat by Pulse Oximetry 91 L Orders Category Date Time Status Metoprolol [Lopressor] Med 06/05/19 14:27 Once 5 mg IV NOW ONE EKG [EKG] Stat Ther 06/05/19 14:28 Ordered Result Diagrams: 06/05/19 15:16 06/05/19 15:16 - REASSESSMENT Reassessment #1 Status: other Reassessment #2 Status: other (Discussed case with Dr. Ramires who recomended cardizem treatment, and if stablizes trial PO cardizem and metoprolol for rate control.) Reassessment #3 Status: other (HR improved with cardizem. Potassium noted to be elevated, kayexalate given, awaiting call back from Dr. Blakely office reguarding dialysis plan.) Reassessment #4 Status: other (Discussed case with Dr. Blakely who recomends admission for fistula evaluation. Given hyperkalemia, Dr. Marquez also recomended Lokelma 10mg q6hr x3 doses. Discussed case with the hospitalist team who have agreed to admit the patient.) Departure - Departure Date of Disposition Decision: 06/05/19 Time of Disposition Decision: 18:14 DIAGNOSIS: ESRD on hemodialysis, Atrial fibrillation with RVR Disposition: ADMITTED INPATIENT 09 Certified Medical Emergency: Emergent Condition: Fair Referrals and Follow-Ups: Lakisha Adams MD [Primary Care Provider] - - Critical Care Note This patient required my direct & personal management of CC.: No Attestation - Physician/ GABRIELA Attestation Patient care was provided by Advanced Practice Provider:: No The physician spent face to face time with patient:: Yes Advanced Practice Provider documentation review:: Supervising physician onsite and consulted in the evaluation and care of this patient. The physician did have a face to face encounter with the patient.
--- NOTE | 2019-06-05 15:06 | EKG Report ---
Test Performed on : 06/05/2019 2:21:17 PM Test Reason : Palpitations Blood Pressure : / mmHG Vent. Rate : 126 BPM Atrial Rate : 370 BPM P-R Int : 000 ms QRS Dur : 072 ms QT Int : 318 ms P-R-T Axes : 000 066 023 degrees QTc Int : 460 ms Atrial flutter. with variable AV block. Low voltage QRS Cannot rule out Anterior infarct (cited on or before 03-MAY-2014) Abnormal ECG When compared with ECG of 02-APR-2019 15:45, (Unconfirmed) Atrial flutter. has replaced Atrial fibrillation. Unconfirmed Result
[2019-06-05 15:28] LABS: BASO# 0.03 X1000 (0.0-0.2); BASO% 0.4 % (0.0-0.8); EOS# 0.16 X1000 (0.0-0.7); EOS% 2.2 % (0.0-10.0); HEMATOCRIT 32.8 % (37.0-47.0); IMM GRAN# 0.03 X1000 (0.0-0.04); IMM GRAN% 0.4 % (0.0-0.5); LYMPH# 1.51 X1000 (1.2-3.4); LYMPH% 20.7 % (20.5-51.1); MCH 28.7 PG (27-31); MCHC 30.5 g/dL (33-37); MONO# 0.55 X1000 (0.11-0.59); MONO% 7.5 % (1.7-9.3); NEUT# 5.01 X1000 (1.4-6.5); NEUT% 68.8 % (42.2-75.2); PLT 231 X1000 (130-400); RBC 3.49 XMIL (4.2-5.4); RDW 16.5 % (11.5-14.5); WBC 7.29 X1000 (4.8-10.8)
[2019-06-05] MEDS ORDERED: CARDIZEM IV ONE (16:04)
[2019-06-05 16:26] LABS: ALB/GLOB RATIO 1.5; ALBUMIN 3.5 g/dL (3.5-5.0); CALCIUM 7.1 mg/dL (8.8-10.2); CREATININE 9.9 mg/dL (0.5-0.9); POTASSIUM 6.2 mmol/L (3.5-5.1); TOTAL BILIRUBIN 0.31 mg/dL (0.20-1.00); TOTAL PROTEIN 5.8 g/dL (6.3-8.3)
[2019-06-05] MEDS ORDERED: KAYEXALATE PO ONE ×2 (16:31→16:42)
[2019-06-05] MEDS ORDERED: ZOFRAN IV PRN (19:51)
[2019-06-05] MEDS: LOKELMA POWDER PACKET PO SCH (20:06)
[2019-06-05] MEDS: CARDIZEM IV SCH (21:11)
[2019-06-05] MEDS: D5W IV SCH (21:11)
[2019-06-05] MEDS: ROBAXIN PO SCH (23:32)
[2019-06-06] MEDS: ELIQUIS PO SCH ×3 (00:11→22:09)
[2019-06-06] MEDS: SINEQUAN PO SCH ×2 (00:11→22:09)
[2019-06-06] MEDS: NEURONTIN PO SCH ×3 (00:12→22:09)
--- NOTE | 2019-06-06 00:14 | HISTORY AND PHYSICAL ---
COMPLAINT: Fast heart rate. HISTORY OF PRESENT ILLNESS: The patient is a 78-year-old white female followed by Dr. Aretha Adams who was sent in to the ER per Dr. Marquez who follows her for her end-stage renal disease and has her on hemodialysis. Apparently, the patient had gone back over to [place] today to be evaluated for correction of some clotting to her graft when she was noted to have elevated heart rate did not have the procedure done. She was told by Dr. Alma pastor to come in to the emergency room. This is similar situation which occurred back in late February 2019 when I admitted her for Dr. Bryan pastor. She denies any chest pains, unusual shortness of breath. MEDICATIONS: Prior to admission are Synthroid 175 mcg p.o. daily, doxepin 10 mg p.o. at bedtime, Leida-Joanne vitamin tablet 1 p.o. daily, Novolin 70/30 insulin 13 units subcutaneous b.i.d. with meals, Robaxin 1 p.o. b.i.d., Neurontin 100 mg p.o. b.i.d., Imdur 30 mg p.o. daily, Toprol-XL 50 mg p.o. daily, Eliquis 2.5 mg p.o. b.i.d., aspirin 81 mg p.o. daily, Renagel 3 p.o. t.i.d., Atarax 50 mg p.o. daily, Pletal 50 mg p.o. daily, [place] 5 one p.o. q.6 hours p.r.n. pain, Plavix 75 mg p.o. daily, nitroglycerin topically 0.5 mg topical to skin q.12 hours that goes to her left 3rd digit distally. ALLERGIES: Allopurinol, fenofibrate, morphine, penicillin, Crestor, Percodan, Dilaudid, Lipitor. PAST MEDICAL HISTORY: 1. History of atrial fibrillation diagnosed initially January 2019. 2. Chronic back pain on chronic pain medication per the [facility]. 3. ESRD on hemodialysis per Dr. Marquez with right AV shunt graft in her arm. 4. Hypertension. 5. Hyperlipidemia. 6. Type 2 DM. 7. Hypothyroidism. 8. Chronic peripheral neuropathy lower extremities. 9. Peripheral arterial disease with some necrotic areas especially of her great toes left greater than right and some darkened area of her left 3rd digit distally finger. PAST SURGICAL HISTORY: 1. Back surgery. 2. Knee surgery. 3. Hysterectomy. 4. Cholecystectomy. 5. Cataract surgery. FAMILY HISTORY: Noncontributory. SOCIAL HISTORY: Patient lives in the local area. She is in with her daughter today. She is . She denies alcohol and recent tobacco abuse. ROS: As above. PHYSICAL EXAM: VITAL SIGNS: See chart. Heart rate in the 120s to 130s. She has received Lopressor and Cardizem in the emergency room and heart rate initially came down but came back up into the 120s now, O2 saturation 99 to 100 percent. GENERAL: Elderly appearing white female, non ill appearing. SKIN: Discoloration, desquamation to the 2nd through 4th toes left slightly greater than right, great toes bilaterally have necrotic areas distally, left greater than right with some scabbing. There is discoloration, darkness to the left 3rd digit finger DIP. LUZMARIA. EOMI. Sclerae anicteric. OP no redness, tongue in the midline. NECK: No LA, TMG, JVD, or bruits. CV: Irregularly irregular tachycardia. LUNGS: CTA. BACK: Mild kyphosis. No tenderness over the CVA area. ABDOMEN: Protuberant, soft, nontender, nondistended. No mass or HSM. EXTREMITIES: No major edema of her lower extremities. Fistula in her right arm. Lower extremity pulses were absent. NEURO: Cranial nerves 2-12 are intact. She moves all extremities well. LAB DATA: Today shows white count 7.29, hemoglobin 10, platelets 231,000. Sodium 135, potassium 6.2, chloride 93, CO2 18, BUN 68, creatinine 9.9, glucose 173, calcium 7.1, magnesium 2.6, total bilirubin 0.31, AST 13, ALT 50, alkaline phosphatase 260. Troponin 0.118. Total protein 5.8, albumin 3.5, TSH 4.23. ASSESSMENT: 1. Chronic atrial fibrillation with rapid ventricular response. 2. Hyperkalemia. 3. End-stage renal disease on hemodialysis per Dr. Marquez. 4. Chronic back pain on pain medications per pain clinic. 5. Hypertension. 6. Hyperlipidemia. 7. Type 2 diabetes mellitus. 8. Hypothyroidism. 9. Severe peripheral arterial disease. 10. Chronic neuropathy lower extremities. PLAN: Patient had seen Dr. Duncan during the hospitalization back in January. Will start her on Cardizem drip maintenance of 5 mg/hour and repeat cardiac enzymes, troponin levels in 8 hours. Continue her home medications except for the Toprol-XL. Will hold the metoprolol at this point, keep her on the Cardizem drip alone. Consider consultations with Dr. Marquez and cardiology and surgery tomorrow regarding clotted graft. Pt. treated with Kaexylate for high potassium and also Lokelma as recommeded per Dr. Marquez. cc: Cedric Quinones MD [facility]
[2019-06-06] MEDS: HUMULIN 70/30 SUBQ SCH ×3 (00:16→22:43)
[2019-06-06 06:21] LABS: POTASSIUM 5.2 mmol/L (3.5-5.1)
[2019-06-06 06:26] LABS: CALCIUM 6.9 mg/dL (8.8-10.2); CREATININE 10.6 mg/dL (0.5-0.9)
[2019-06-06] MEDS ORDERED: TIGHT: 0.2 ML/HR FOR DIALYSIS MISC PRN (06:31)
[2019-06-06] MEDS ORDERED: NS 2,000 ML MISC PRN (06:31)
[2019-06-06] MEDS ORDERED: HEPARIN IV PRN (06:31)
[2019-06-06] MEDS: ROBAXIN PO SCH ×2 (10:04→22:09)
[2019-06-06] MEDS: SYNTHROID PO SCH (10:05)
[2019-06-06] MEDS: NEPHRO-VITE PO SCH (10:06)
[2019-06-06] MEDS: LOKELMA POWDER PACKET PO SCH ×2 (10:07→22:38)
[2019-06-06] MEDS: IMDUR PO SCH (10:07)
[2019-06-06] MEDS ORDERED: DIPRIVAN 1% ONE (10:49)
[2019-06-06] MEDS ORDERED: XYLOCAINE-MPF 2% ONE (10:50)
[2019-06-06] MEDS ORDERED: FENTANYL ONE (10:51)
[2019-06-06] MEDS ORDERED: HEPARIN ONE ×2 (11:05→11:07)
[2019-06-06] MEDS ORDERED: NS 2,000 ML ONE (11:08)
[2019-06-06] MEDS ORDERED: D10W 500 ML ONE (11:16)
[2019-06-06] MEDS ORDERED: VANCOMYCIN 1 GM/NS 1 GM/250 ML IVPB IV ONE (11:20)
[2019-06-06] MEDS ORDERED: VANCOMYCIN 1 GM/NS 1 GM/250 ML IVPB ONE (11:21)
[2019-06-06] MEDS ORDERED: NEO-SYNEPHRINE ONE (12:06)
--- NOTE | 2019-06-06 12:07 | GENERAL SURGERY CONSULTATION ---
DATE: 06/06/2019 REQUESTING PHYSICIAN: Dr. Marquez. REASON FOR CONSULTATION: Consult is regarding thrombosed AV fistula. HISTORY OF PRESENT ILLNESS: A 78-year-old female who is well known to me, whom I have been following for peripheral vascular disease, who also has end-stage renal disease, on hemodialysis. Apparently, she was having issues with clotting of her fistula and then developed elevated heart rate in [place] when they were trying to declot it. She otherwise is doing okay, is at about her normal baseline. I was asked to weigh an opinion. PAST MEDICAL HISTORY: Includes: 1. History of atrial fibrillation. 2. Chronic back pain. 3. End-stage renal disease requiring hemodialysis. 4. Hypertension. 5. Hyperlipidemia. 6. Diabetes mellitus type 2. 7. Hypothyroidism. 8. Chronic peripheral neuropathy. 9. Peripheral arterial disease. PAST SURGICAL HISTORY: Includes back surgery, knee surgery, hysterectomy, cholecystectomy, cataract surgery, previous AV fistula in the right upper extremity. FAMILY HISTORY: Reviewed with patient and noncontributory. SOCIAL HISTORY: Lives in the area. Denies alcohol or tobacco. ALLERGIES: Full list reviewed. HOME MEDICATIONS: Reviewed. Of note, she is on Eliquis. REVIEW OF SYSTEMS: A full 14 systems reviewed and negative except as specified in the HPI. PHYSICAL EXAMINATION: Vital Signs: The patient is currently afebrile. Her heart rate is a little bit elevated in the 100s and is a little bit irregular. General Examination: No acute distress. female, looks stated age. HEENT: Normocephalic, atraumatic. Pupils equal, round, reactive to light. Mucous membranes moist. Oropharynx benign. Neck: Supple. Trachea midline. Cardiovascular: Somewhat irregular. Lungs: Grossly clear. Abdomen: Soft, nontender, nondistended. Extremities: Previous AV fistula in the upper extremity noted. No flow noted. Performed a bedside ultrasound. Please see details below. She is able to move all extremities. Neurologic: Grossly intact. Skin: No signs of jaundice but chronic peripheral vascular disease changes noted. Vascular: Poor flow to all extremities LABORATORY: Reviewed. Of note, most recent potassium is 5.2. Troponin is elevated. ASSESSMENT AND PLAN: A 78-year-old female with a thrombosed arteriovenous fistula. Thrombosed arteriovenous fistula. At this time, performed a bedside ultrasound of her extremity with attention given to the fistula itself, viewed in both sagittal and transverse planes. There was flow at the arteriovenous fistula anastomosis but more proximally up the arm, there appears to be thrombus that starting and essentially occludes the whole arteriovenous fistula, and there was no flow in the outflow. The fistula itself is very aneurysmal. At this point, we will plan on open thrombectomy of the arteriovenous fistula. She is already on Eliquis. We may need to consider increasing her Eliquis or try another method for anticoagulating her. Discussed with her the risks, benefits, and alternatives of the procedure with risks including not limited to bleeding, infection, risk of anesthesia, risk of injuring the fistula discussed. All questions answered. We will plan on procedure today. cc: MD Cedric Lucas MD
--- NOTE | 2019-06-06 12:46 | NEPHROLOGY CONSULTATION ---
DATE: 06/06/2019 REASON FOR ADMISSION: Abnormal heart pattern with palpitations. REASON FOR CONSULT: End-stage renal disease with assistance with medical management. CONSULTING PHYSICIAN: Dr. Webster. HISTORY OF PRESENT ILLNESS: Ms. Rivera is a 78-year-old white female who is known to our outpatient services for hemodialysis on Tuesday, Tuesday, Tuesday at the [facility]. The patient had gone to her regular dialysis appointment, and found that her fistula was nonfunctioning. She had an appointment yesterday with [facility] for possible fistulogram and repair. While at the [facility], she was found to be in atrial fibrillation with RVR, heart rate in the 140s to 150s. She was brought back to [place], taken to [facility], was found to be in atrial fibrillation with RVR with hyperkalemia. Her potassium was treated and is now down to 5.2. She still remains in the ER on a stretcher. She has a nonfunctioning right upper arm fistula and is in need of dialysis. She currently denies any chest pain. No increased work of breathing. No lower extremity swelling. No nausea, vomiting, or diarrhea. Occasional increased work of breathing with exertion only. She has not had any fever or chills. She has not had any dialysis treatment since last week, Tuesday. PAST MEDICAL HISTORY: Chronic kidney disease stage 5D with hemodialysis on Tuesday, Tuesday, Tuesday at the [facility], atrial fibrillation, chronic ischemia, peripheral artery disease, chronic back pain, hypertension, hyperlipidemia, diabetes mellitus type 2 (noninsulin-dependent), hypothyroidism, neuropathy, peripheral arterial disease, anemia of chronic disease, osteodystrophy of chronic disease. PAST SURGICAL HISTORY: Back surgery, knee surgery, hysterectomy, cholecystectomy, cataract surgery, AV fistula to her left upper arm, and now she has an AV fistula to her right upper arm (nonfunctioning). FAMILY HISTORY: Positive for lung cancer and melanoma. SOCIAL HISTORY: She lives at home. She has family who are attentive to her care, who are out of state, and some family who are local. She is cared for by her daughter. Denies alcohol, tobacco, or illicit drug use. ALLERGIES: Listed as allopurinol, fenofibrate, morphine, penicillin. HOME MEDICATIONS: Have yet to be reconciled. REVIEW OF SYSTEMS: Review of systems x10 with pertinent positives listed above in the HPI. LABORATORY DATA: Sodium 143, potassium 5.2, chloride 97, CO2 of 17, BUN is 71, creatinine 10.6, glucose 67, anion gap is 17, calcium 6.9, albumin 3.5. White count 7.29, hemoglobin 10, hematocrit 32.8, with a platelet count of 231,000. She had a TSH yesterday evening of 4.23. PHYSICAL EXAMINATION: Most Recent Vital Signs: Temperature 98.3 degrees, blood pressure 108/95, heart rate 88, respirations are 12. She is currently on room air. General: This is a 78-year- old white female who appears chronically ill, in no acute distress. Skin: Warm and dry. She does have slight discoloration of her skin with different areas of ecchymosis. HEENT: Normocephalic, atraumatic. Conjunctiva is pale. She has LUZMARIA. Mucous membranes are dry. Neck: Supple. Trachea midline. She has no evidence of JVD. Cardiovascular: She is irregularly irregular rate and rhythm. Appears to be atrial fibrillation on the monitor. Slightly tachycardic at 90 range. Lungs: Clear to auscultation bilaterally. Equal excursion on room air. Abdomen: Soft, nontender. Positive bowel sounds. Genitourinary: Not inspected. Minimal void with dialysis assist. Extremities: The patient has desquamation to her second through fourth toes, slightly greater than the right. Great toe on the left is necrotic distally. Some scabbing noted with discoloration. Diminished pulses palpable. Her third digit finger has been improving, though it is still slightly discolored. Nonfunctioning AV fistula to right upper arm. Neurological: She is alert and oriented to person and to place and some recent events. ASSESSMENT AND PLAN: 1. Chronic kidney disease stage 5D. The patient is due for her routine dialysis treatment today. Unfortunately, she has a non-working arteriovenous fistula to the right upper arm. We have spoken with Dr. Ruano, who has agreed to evaluate and possibly perform a thrombectomy on her upper extremity, with plans for dialysis today. If able, we will plan for a 2-potassium bath. She is to dialyze for 3.5 hours. We will pull her to her outpatient dry weight. 2. Electrolytes. The patient came in with hyperkalemia, potassium of 5.2. We will plan for correction on dialysis. 3. Acid-base balance with correction on dialysis planned. 4. Anemia. This is low, but stable. 5. Atrial fibrillation. This is chronic. It is now more rate controlled after her hospitalization. Followed by the primary care. I would like to thank you for allowing us to follow with this patient. Unable to perform successful thrombectomy. Now has a tunneled catheter. We will arrange for her to go to [facility] after discharge for another attempt at thrombectomy and central vein angioplasty. rg Dictated by NATHALIA Davidson for Malcolm Marquez MD Face to face encounter, data reviewed, discussed with Negrita Villatoro on 06/06/19. I agree with the above assessment and plan of care. rg cc: NATHALIA Davidson MD [facility] Har[facility], MD [facility]
[2019-06-06] MEDS ORDERED: NS 1,000 ML ONE (13:06)
[2019-06-06] MEDS ORDERED: MORPHINE ONE (14:39)
--- NOTE | 2019-06-06 15:36 | Diag Imaging Result Doc PS360 ---
EXAM: CHEST-PORTABLE 06/06/2019 HISTORY: Vas cath Rt chest TECHNIQUE: AP portable upright at 1523 COMMENT: There is a right-sided double-lumen catheter in the internal jugular with its tip in the superior vena cava. There is a Port-A-Cath on the left with its tip in the superior vena cava. There is a right subclavian stent. There is minimal atelectasis or fibrosis over the right base which has not changed since 04/02/2019. IMPRESSION: No evidence of pneumothorax. Electronically signed by Dre Rodriguez 06/06/2019 3:34 PM
[2019-06-06] MEDS: ASPIRIN EC PO SCH (20:24)
--- NOTE | 2019-06-06 21:24 | OPERATIVE NOTE ---
PROCEDURE DATE: 06/06/2019 PREOPERATIVE DIAGNOSIS: Chronically clotted arteriovenous fistula. POSTOPERATIVE DIAGNOSIS: 1. Chronically clotted arteriovenous fistula. 2. 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 PROCEDURE: 1. Open thrombectomy of right upper extremity arteriovenous fistula. 2. AngioJet thrombectomy of right axillary vein and arteriovenous fistula. 3. Fistulogram with interpretation. 4. Ultrasound and fluoroscopy-guided right internal jugular vein tunneled hemodialysis catheter placement. SURGEON: Kenny Ruano MD INTERVENTIONIST: Javier Maguire MD ANESTHESIA: General endotracheal. INTRAOPERATIVE FINDINGS: Central stenosis at previous stent. Ultrasound showed a decent caliber internal jugular vein. Fluoroscopy showed the catheter in good position. COMPLICATIONS: None at the time of this dictation. ESTIMATED BLOOD LOSS: 100 mL SPECIMEN: Thrombus. DRAINS: None. CONTRAST: 60 mL BRIEF HISTORY: A 78-year-old female well known to me, who had previously had AV fistula placed. It was clotted and she needed dialysis. The risks, benefits and alternatives for thrombectomy were discussed. All questions answered. DESCRIPTION OF PROCEDURE: After informed consent was obtained, the patient was brought to the operating theater, transferred to the operating table and placed in supine position. General endotracheal anesthesia was then performed without complication. A formal time-out was then performed confirming patient name and procedure. All were in agreement. At that time we made an incision over her previous AV fistula, carried down her AV fistula. We dissected it out, got proximal and distal control of it. We made a fistulotomy and passed the Tracie catheter down the proximal side to the arterial anastomosis. We had good return of blood. We passed the Tracie catheter down the distal side. We did not get any clot return or backbleeding. We attempted multiple times with different size Tracie catheters. We even placed a wire up the area. We were able to get it going up to the central location. We shot a venogram and a fistulogram through this. We did not see any obvious clot, but the ultrasound on the arm did show thrombus burden. We then elected to do an AngioJet of this area after multiple attempts to try to thrombectomize it otherwise. We did an AngioJet extensively of the entirety of the upper extremity. We got some clot return, as we did with the open, but there was not significant backbleeding. It should be noted that Dr. Maguire was assisting with the entirety of this part. Given the inability to get good central backbleeding, I elected to try to do a tunnelled hemodialysis catheter. She had some cardiac arrhythmias and I felt as though to try any further would be risky for her. We closed the fistulotomy, closed the skin with a chromic and the fistulotomy with 5-0 Prolene. We then prepped and draped the right neck in a sterile fashion. After a second time-out, using the ultrasound I was able to cannulate the internal jugular vein. It was difficult to pass a wire because she has had a stent. We were able to get past the stent under fluoroscopic imaging. We then created a pocket on the right chest wall, tunneled the catheter in the right chest wall to the right neck. We exchanged it over the wire in typical Seldinger technique to place a tunneled hemodialysis catheter in the central venous system. It aspirated and flushed easily. We secured it into place. A sterile dressing was applied to all incisions. The patient will be returned to the recovery room. She will need hemodialysis, but she will likely need intervention by an interventional radiologist to fix her stent in her subclavian. cc: MD Cedric Lucas MD
[2019-06-06] MEDS: NORCO-5 PO PRN (22:09)
[2019-06-06] MEDS: PLAVIX PO SCH (22:36)
[2019-06-06] MEDS: PLETAL PO SCH (22:36)
[2019-06-06] MEDS ORDERED: INSULIN PEN NEEDLES ONE (22:42)
--- NOTE | 2019-06-07 02:33 | PROGRESS NOTE ---
DATE: 06/06/2019 SUBJECTIVE: A 78-year-old white female has been transferred to the emergency room for tachycardia. The patient is well known for chronic atrial fibrillation. She is getting regular dialysis through the right arm AV graft and the fistula is not working. She went to [place] with [facility] for repair. She was found to have rapid atrial fibrillation and transferred back to [place], and this is the 2nd time for the last few months. As a result, she is not getting her dialysis. Obviously, she has some thrombus in the fistula, needs a thrombectomy. I spoke to Dr. Marquez and they are working with Dr. Ruano. Dr. Ruano is also working on PID on both legs. I did review the history and physical and consultations notes. The patient was seen in the emergency room. Waiting to be admitted. Heart rate is reasonably controlled. REVIEW OF SYSTEMS: No chest pain, shortness of breath. PAST MEDICAL HISTORY: Reviewed. PAST SURGICAL HISTORY: Reviewed. MEDICINES: Reviewed. ALLERGIES: Allopurinol, fenofibrate, morphine, penicillin, Crestor, aspirin, Dilaudid, oxycodone. PHYSICAL EXAMINATION: Vital signs: Temperature is 97 degrees, pulse is 74. Vitals are stable. Height 5 feet 2 inches, weight 168 pounds. HEENT: Atraumatic, normocephalic. Pupils equal, reactive to light. Neck: Supple. Chest: Bilateral air entry irregular heart rate, Abdomen: Belly is soft, obese, nontender. Extremities: Exhibiting dry gangrene on the tip of both feet. INVESTIGATIONS: CBC: White cell count 7.2, hematocrit 32.8, platelets 231,000. Sodium 143, potassium 5.2, BUN 71, creatinine 10.6. Glucose 67, calcium 6.9. TSH is normal. Chest x-ray, the patient has Vas-Cath present on the right side of the chest. No evidence of pneumothorax. ASSESSMENT AND PLAN: 1. Nonfunctioning arteriovenous fistula on the right side. Not able to do thrombectomy. A Vas- Cath was placed for temporary dialysis on the right side of the chest by Dr. Ruano. 2. Peripheral arterial disease. Dr. Ruano is managing. 3. Atrial fibrillation, rate controlled on Eliquis 2.5 p.o. b.i.d., aspirin b.i.d., Pletal, and Plavix. The patient was started on IV Cardizem drip for rate control. 4. Chronic pain, on hydrocodone. 5. Diabetes. On 70/30 subcu b.i.d. 6. Hypothyroidism, on Synthroid. Normal TSH. 7. Living will, Do Not Resuscitate. Appreciated consultations. LEVEL OF DOCUMENTATION: 25. cc: MD Cedric Arshad MD MTDD
[2019-06-07] MEDS: CARDIZEM IV SCH ×2 (02:53→21:08)
[2019-06-07] MEDS: D5W IV SCH ×2 (02:53→21:08)
[2019-06-07] MEDS: SYNTHROID PO SCH (06:10)
--- NOTE | 2019-06-07 09:11 | GENERAL SURGERY PROGRESS NOTE ---
DATE: 06/07/2019 SUBJECTIVE: We were unsuccessful in trying to salvage the fistula. The patient probably has some degree of central stenosis as she has had a previous stent. I was able to place a tunnel catheter, and that should help us temporarily. I think honestly she probably needs to go to [facility] in [place] to try to get more aggressive stenting done, but otherwise can continue to monitor while she is here. cc: MD Cedric Lucas MD MTDD
[2019-06-07] MEDS: NEURONTIN PO SCH ×2 (09:22→20:13)
[2019-06-07] MEDS: ELIQUIS PO SCH ×2 (09:22→20:13)
[2019-06-07] MEDS: IMDUR PO SCH (09:22)
[2019-06-07] MEDS: ASPIRIN EC PO SCH (09:22)
[2019-06-07] MEDS: NEPHRO-VITE PO SCH (09:22)
[2019-06-07] MEDS: NORCO-5 PO PRN ×2 (09:23→15:32)
[2019-06-07] MEDS: PLAVIX PO SCH (09:23)
[2019-06-07] MEDS: ROBAXIN PO SCH ×2 (09:23→20:13)
[2019-06-07] MEDS: PLETAL PO SCH (09:23)
[2019-06-07] MEDS: HUMULIN 70/30 SUBQ SCH ×2 (09:32→20:12)
--- NOTE | 2019-06-07 14:54 | NEPHROLOGY PROGRESS NOTE ---
DATE: 06/07/2019 TIME SEEN: 0630. SUBJECTIVE: Ms. Rivera is resting quietly in bed. She recognizes Dr. Marquez and myself, though she is slightly forgetful to some recent events. OBJECTIVE: Her most recent vital signs: Temperature 97.7 degrees, blood pressure 99/63, heart rate 93, respirations 15. She is on room air, last recorded saturation 94%. She has had 873 in, she has had 2600 out with dialysis yesterday. LABS: These are still currently pending. The patient had a hemoglobin of 10 with a potassium of 5.2 yesterday. Calcium was low at 6.9. PHYSICAL EXAMINATION: General: This is a 78-year-old white female resting quietly in bed. She appears chronically ill, no acute distress. Skin: Warm and dry. HEENT: Normocephalic, atraumatic. Conjunctiva is pale, pink. She has LUZMARIA. Mucous membranes are dry. Neck: Supple. Trachea midline. No evidence of JVD. Cardiovascular: Irregularly irregular rate and rhythm. She appears atrial fibrillation on the bedside monitor. Neck: Is supple. Trachea midline. No evidence of JVD. Lungs: Clear to auscultation anteriorly, equal excursion. She is currently on room air. Abdomen: Large, round, soft, nontender. Positive bowel sounds. Genitourinary: Not inspected. Minimal void with dialysis assist. Extremities: Have no edema, no clubbing or cyanosis. Integumentary: Patient has a fistula to the left upper arm. This is no palpable thrill. Dressing is intact. She also has a tunnel catheter to the right chest wall. The dressing is off this at this time. Gauze is only intact. Neurological: As mentioned above. ASSESSMENT AND PLAN: 1. Chronic kidney disease stage 5D. The patient had her routine dialysis treatment yesterday. There is no indication for dialysis today. We will plan for dialysis again in the morning. 2. Electrolytes and acid-base balance. These are currently pending. 3. Anemia. This has been stable. 4. Clotted left fistula. Dr. Ruano had attempted to repair her left upper arm fistula. At this time, this is nonfunctioning. Tunneled catheter has been placed. We will address on discharge with referral to [facility]. 5. Atrial fibrillation. The patient remains in atrial fibrillation at this time. She is currently on Cardizem with rate control followed by cardiology and the primary care. 6. I would like to thank you for allowing us to follow with this patient. Dictated by NATHALIA Davidson for Malcolm Marquez MD Face to face encounter, data reviewed, discussed with Negrita Villatoro on 06/07/19. I agree with the above assessment and plan of care. cc: NATHALIA Davidson MD Stephen W[facility] Harbin, MD [facility]
[2019-06-07] MEDS: SINEQUAN PO SCH (20:13)
[2019-06-07] MEDS ORDERED: INSULIN PEN NEEDLES ONE (20:15)
--- NOTE | 2019-06-07 22:51 | PROGRESS NOTE ---
DATE: 06/07/2019 SUBJECTIVE: The patient is in the stepdown unit. Cardizem drip is on atrial fibrillation rate is well controlled. The patient is in a lot of pain. Had dialysis yesterday. Unable to do thrombectomy on the AV graft on the right arm. A tunnel catheter was placed. No pneumothorax. Follow up chest x-ray. REVIEW OF SYSTEMS: None reported. OBJECTIVE: Vital signs: Temperature is 97 degrees. Tachycardic. Vitals are stable. HEENT Exam: Within normal limits. Neck: Supple. No lymphadenopathy. Chest: Bilateral air entry. Cardiovascular: Irregular heart sounds. Abdomen: Belly is soft, nontender. Digital ischemia noted in both feet, left worse than the right side. No focal deficits. INVESTIGATIONS: None reported. ASSESSMENT AND PLAN: 1. Atrial fibrillation basically on rate control on Eliquis. 2. Diabetes, stable. 3. End-stage kidney disease on dialysis. Poor IV access. Currently on tunneled catheter. We will go for dialysis tomorrow. Continue present treatment, and we will slowly change to the Cardizem drip by mouth. Once she is on maintenance hemodialysis. LEVEL OF DOCUMENTATION: 25 minutes. cc: MD Cedric Arshad MD MTDD
[2019-06-08] MEDS: NORCO-5 PO PRN ×2 (05:49→13:40)
[2019-06-08] MEDS: SYNTHROID PO SCH ×2 (05:50→08:26)
[2019-06-08] MEDS ORDERED: NS 2,000 ML MISC PRN (06:42)
[2019-06-08] MEDS ORDERED: TIGHT: 0.2 ML/HR FOR DIALYSIS MISC PRN (06:42)
[2019-06-08] MEDS ORDERED: HEPARIN IV PRN (06:42)
[2019-06-08 06:45] LABS: ALBUMIN 2.9 g/dL (3.5-5.0); CALCIUM 7.1 mg/dL (8.8-10.2); PHOSPHORUS 9.8 mg/dL (2.7-4.5); POTASSIUM 3.4 mmol/L (3.5-5.1)
[2019-06-08 06:52] LABS: CREATININE 8.1 mg/dL (0.5-0.9)
[2019-06-08] MEDS: ELIQUIS PO SCH ×2 (08:24→20:51)
[2019-06-08] MEDS: PLETAL PO SCH (08:24)
[2019-06-08] MEDS: NEURONTIN PO SCH ×2 (08:24→20:51)
[2019-06-08] MEDS: ROBAXIN PO SCH ×2 (08:24→20:51)
[2019-06-08] MEDS: NEPHRO-VITE PO SCH (08:24)
[2019-06-08] MEDS: ASPIRIN EC PO SCH (08:24)
[2019-06-08] MEDS: PLAVIX PO SCH (08:25)
[2019-06-08] MEDS: HUMULIN 70/30 SUBQ SCH ×2 (08:25→20:51)
[2019-06-08] MEDS: IMDUR PO SCH (08:25)
[2019-06-08] MEDS: CARDIZEM IV SCH ×2 (09:02→21:33)
[2019-06-08] MEDS: D5W IV SCH ×2 (09:02→21:33)
--- NOTE | 2019-06-08 12:00 | GENERAL SURGERY PROGRESS NOTE ---
DATE: 06/08/2019 SUBJECTIVE: The patient seems to be doing about the same. I do not feel any flow in her fistula. I suspect it is re-clotted. I think this is because the central stenosis. She has had a previous venous stent. PLAN: Likely she will need to go to [place] to Interventional Radiology to have this evaluated further. cc: MD Cedric Lucas MD
--- NOTE | 2019-06-08 15:07 | NEPHROLOGY PROGRESS NOTE ---
DATE: 06/08/2019 SUBJECTIVE: No new complaints today. Ongoing pain in the hands and legs. No chest pain or shortness of breath. OBJECTIVE: Vital Signs: Blood pressure 119/59, heart rate 83, respirations 15, afebrile. General: Chronically ill, pale, no distress. Skin: Warm and dry. Neck: Neck veins are not appreciated. Heart: Irregular but rate controlled. Lungs: Have equal breath sounds, shallow, no crackles. Abdomen: Soft, nontender. Bowel sounds present. Extremities: No edema, clubbing or cyanosis. IMPRESSION: 1. Thrombosed AV access. She has a tunneled dialysis catheter. We will have her visit [facility] after discharge. 2. Chronic kidney disease 5 D. She will have her routine dialysis today. 3. Electrolytes/acid base acceptable. 3K bath today. 4. Anemia. Within target. 5. Dialysis access. Plan as above. cc: MD Cedric Oswald MD
--- NOTE | 2019-06-08 19:05 | PROGRESS NOTE ---
DATE: 06/08/2019 SUBJECTIVE: The patient complains of pain. Still on Cardizem drip 10 mg/hour. Rate is well controlled. Patient is going for dialysis. Blood sugar is doing very well. Rest of the review of systems, none reported. PHYSICAL EXAMINATION: Temperature is 97 degrees, pulse 107, blood pressure is stable, 167 pounds. HEENT within normal limits. A tunneled catheter was placed on the right side of the chest. AV graft is not working. Irregular heart beat. Dry gangrene changes on the distal toes, mostly on the left side. No focal deficits. INVESTIGATIONS: Sodium 140, potassium 3.4, chloride 96, BUN 47, creatinine 8.1, calcium 7.8, phosphorus 9.4, total albumin 2.9. ASSESSMENT AND PLAN: 1. End-stage kidney disease, on dialysis, going for today. 2. 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 3. Temporary dialysis catheter on the right side. 4. Atrial fibrillation. Slowly wean off Cardizem to p.o. and then Eliquis. 5. Diabetes, stable. 6. Disposition. We will keep her over the weekend since the patient lives at home, and discharge on Tuesday. Continue present treatment. 7. Living Will, Do Not Resuscitate. LEVEL OF DOCUMENTATION: 25 minutes. cc: MD Cedric Arshad MD
[2019-06-08] MEDS: SINEQUAN PO SCH (20:51)
[2019-06-08] MEDS ORDERED: INSULIN PEN NEEDLES ONE (20:58)
[2019-06-09] MEDS: NORCO-5 PO PRN ×3 (04:28→22:25)
[2019-06-09] MEDS: SYNTHROID PO SCH ×2 (05:58→06:00)
[2019-06-09] MEDS: PLAVIX PO SCH (08:57)
[2019-06-09] MEDS: PLETAL PO SCH (08:57)
[2019-06-09] MEDS: ROBAXIN PO SCH ×2 (08:57→20:43)
[2019-06-09] MEDS: NEURONTIN PO SCH ×2 (08:58→20:44)
[2019-06-09] MEDS: ASPIRIN EC PO SCH (08:58)
[2019-06-09] MEDS: NEPHRO-VITE PO SCH (08:58)
[2019-06-09] MEDS: ELIQUIS PO SCH ×2 (08:58→20:44)
[2019-06-09] MEDS: IMDUR PO SCH (08:58)
[2019-06-09] MEDS: HUMULIN 70/30 SUBQ SCH ×2 (09:05→20:44)
--- NOTE | 2019-06-09 13:44 | PROGRESS NOTE ---
DATE: 06/09/2019 SUBJECTIVE: Ms. Rivera is a 78-year-old white female patient with multiple medical problems, admitted with atrial fibrillation with rapid ventricular response. The patient also had problem with her dialysis catheter. The patient's AV fistula which was thrombosed complaining of pain in the left index finger and left foot, where she did have some changes of dry gangrene on the toe. The patient denied any chest pain. She does have at times palpitations and shortness of breath. No nausea, vomiting. Oral intake is poor. The patient seems to be tired of staying in the hospital and suffering. No dysuria or hematuria. No further history available at this time. PAST MEDICAL HISTORY: Significant for end-stage renal disease, peripheral vascular disease, atrial fibrillation, diabetes, osteoarthritis. OBJECTIVE: Vital Signs: The vital signs as noted. Neck: Neck is supple. No JVD. Lungs: Bibasilar crepitations. Heart: S1 and S2, irregularly irregular. Abdomen: Soft, globular. Bowel sounds present. Extremities: Patient does have evidence for dry gangrene of the left great toe and second toe. Also evidence of infection of the left index finger, which is painful. DIAGNOSTICS TECH: Alert, awake, able to move all 4 limbs. CONSIDERATION: 1. Thrombosed AV access. 2. Chronic kidney disease, stage 5 D. 3. Anemia most likely due to chronic kidney disease. 4. Dialysis access problem. 5. Peripheral vascular disease. 6. Atrial fibrillation. 7. Hypertension. 8. Hypothyroidism. 9. Patient labs and medications noted. PLAN: I am going to continue current treatment. Close observation. Comfort care. Overall plan discussed with the patient, and she is in agreement. cc: MD Cedric Black MD
--- NOTE | 2019-06-09 14:25 | GENERAL SURGERY PROGRESS NOTE ---
DATE: 06/09/2019 SUBJECTIVE: No complaints of her upper arm. She does continue to complain of finger and toe pain. OBJECTIVE: On examination, no fevers, no tachycardia. I reviewed her labs on exam. Her hands are well perfused. Her dressing on the right upper extremity has minimal serosanguineous drainage, but no hematoma. No cellulitis. Glucose has fluctuated but they have been as high as 395. ASSESSMENT/PLAN: This is a 78-year-old female with thrombosis of the right upper extremity graft felt to be related to a central venous stenosis. She does have a history of a stent here. I think the plan is for a stenting of her central venous stenosis by Interventional Radiology. Otherwise, she has a functional catheter. cc: MD Cedric Umaña MD
[2019-06-09] MEDS: CARDIZEM IV SCH (15:35)
[2019-06-09] MEDS: D5W IV SCH (15:35)
[2019-06-09] MEDS: SINEQUAN PO SCH (20:44)
[2019-06-10] MEDS: SYNTHROID PO SCH ×2 (05:36→06:28)
[2019-06-10] MEDS: CARDIZEM IV SCH ×2 (09:14→21:52)
[2019-06-10] MEDS: D5W IV SCH ×2 (09:14→21:52)
[2019-06-10] MEDS: HUMULIN 70/30 SUBQ SCH ×2 (09:55→20:29)
[2019-06-10] MEDS: PLETAL PO SCH (09:55)
[2019-06-10] MEDS: IMDUR PO SCH (09:55)
[2019-06-10] MEDS: ASPIRIN EC PO SCH (09:55)
[2019-06-10] MEDS: PLAVIX PO SCH (09:55)
[2019-06-10] MEDS: NORCO-5 PO PRN ×2 (09:55→16:44)
[2019-06-10] MEDS: ROBAXIN PO SCH ×2 (09:55→20:29)
[2019-06-10] MEDS: NEURONTIN PO SCH ×2 (09:55→20:29)
[2019-06-10] MEDS: NEPHRO-VITE PO SCH (09:55)
[2019-06-10] MEDS: ELIQUIS PO SCH ×2 (09:55→20:29)
--- NOTE | 2019-06-10 11:02 | PROGRESS NOTE ---
DATE: 06/10/2019 SUBJECTIVE: Ms. Moore is doing fair. Complaining of pain in the left middle finger. The patient does have evidence of gangrene in the left toes. No chest pain, palpitations. No high- grade fever or chills. Past medical history and medications noted. Oral intake is variable. OBJECTIVE: Vital Signs: Reviewed. Neck: Supple. No JVD. Lungs: Bibasilar crepitations. Heart: S1 and S2 heard. Abdomen: Soft, globular. Bowel sounds present. Extremities: Soreness on the tip of the left middle finger. The patient does have evidence of gangrene left foot toes. LABORATORY DATA: Done on 06/08/2019, reviewed. Her blood sugar data reviewed. ASSESSMENT: Patient's medical problems includes 1. End-stage kidney disease. 2. Thrombosis of AV fistula. 3. Atrial fibrillation. 4. Diabetes. 5. Pain in the left hand. I am going to check appropriate labs. Continue current treatment and close observation. cc: MD Cedric Black MD
--- NOTE | 2019-06-10 11:10 | PROGRESS NOTE ---
DATE: 06/10/2019 ADDENDUM: The patient was complaining of nosebleed. I reviewed her medicines. Patient is on Plavix, Eliquis, and Pletal. I am going to check appropriate labs. I am going to hold her Pletal. Patient's other problems includes coronary artery disease, history of hypothyroidism on Synthroid, which will continue. We will continue her pain medicine. Also discussed with the patient about how to stopped the bleeding. After reviewing labs, we will make necessary recommendations. cc: MD Cedric Black MD
[2019-06-10 11:32] LABS: BASO# 0.02 X1000 (0.0-0.2); BASO% 0.2 % (0.0-0.8); EOS# 0.09 X1000 (0.0-0.7); EOS% 1.1 % (0.0-10.0); HEMATOCRIT 30.8 % (37.0-47.0); HEMOGLOBIN 9.1 g/dL (12.0-16.0); IMM GRAN# 0.08 X1000 (0.0-0.04); LYMPH# 1.03 X1000 (1.2-3.4); LYMPH% 12.8 % (20.5-51.1); MCH 28.7 PG (27-31); MCHC 29.5 g/dL (33-37); MCV 97.2 FL (81-99); MONO# 0.78 X1000 (0.11-0.59); MONO% 9.7 % (1.7-9.3); MPV 9.3 FL (7.4-10.4); NEUT# 6.05 X1000 (1.4-6.5); NEUT% 75.2 % (42.2-75.2); PLT 232 X1000 (130-400); RBC 3.17 XMIL (4.2-5.4); RDW 16.2 % (11.5-14.5); WBC 8.05 X1000 (4.8-10.8)
[2019-06-10 11:40] LABS: INR 1.32; PROTIME 16.6 Seconds (11.0-16.0)
[2019-06-10 11:41] LABS: PTT 41.1 Seconds (22.3-41.8)
[2019-06-10 11:52] LABS: ALBUMIN 3.2 g/dL (3.5-5.0); CALCIUM 7.6 mg/dL (8.8-10.2); POTASSIUM 3.7 mmol/L (3.5-5.1); TOTAL BILIRUBIN 0.35 mg/dL (0.20-1.00); TOTAL PROTEIN 6.5 g/dL (6.3-8.3)
[2019-06-10 11:55] LABS: CREATININE 7.1 mg/dL (0.5-0.9)
[2019-06-10] MEDS: SINEQUAN PO SCH (20:29)
[2019-06-11] MEDS: SYNTHROID PO SCH (06:08)
--- NOTE | 2019-06-11 06:34 | GENERAL SURGERY PROGRESS NOTE ---
DATE: 06/11/2019 SUBJECTIVE: Patient seems to be doing about the same. OBJECTIVE: Vital Signs: Patient is currently afebrile. Her vital signs are stable. General: No acute distress. Cardiovascular: Regular rate and rhythm. Lungs: Grossly clear. Chest wall with dialysis catheter in place. Extremities: Right upper extremity perfused. ASSESSMENT AND PLAN: A 78-year-old with thrombosed AV fistula secondary to central stenosis. At this point, she has got a tunneled hemodialysis catheter. We will continue dialysis through that. She will likely needs some kind of intervention for the central stenosis, and probably need to consider transfer to [place] as an outpatient. cc: MD Cedric Lucas MD
[2019-06-11] MEDS: NEPHRO-VITE PO SCH (08:05)
[2019-06-11] MEDS: ROBAXIN PO SCH ×2 (08:05→21:21)
[2019-06-11] MEDS: PLAVIX PO SCH (08:05)
[2019-06-11] MEDS: NEURONTIN PO SCH ×2 (08:05→21:21)
[2019-06-11] MEDS: ASPIRIN EC PO SCH (08:05)
[2019-06-11] MEDS: ELIQUIS PO SCH ×2 (08:05→21:21)
[2019-06-11] MEDS: IMDUR PO SCH (08:05)
[2019-06-11] MEDS: HUMULIN 70/30 SUBQ SCH ×2 (08:08→21:22)
[2019-06-11] MEDS: NORCO-5 PO PRN ×2 (08:11→21:30)
[2019-06-11] MEDS ORDERED: TOPROL XL PO SCH (09:00)
[2019-06-11] MEDS: TYLENOL PO PRN (11:36)
--- NOTE | 2019-06-11 20:57 | NEPHROLOGY PROGRESS NOTE ---
DATE: 06/11/2019 SUBJECTIVE: She is somnolent, but arousable. She continues to complain of pain in the left long finger. No shortness of breath. OBJECTIVE: Blood pressure 128/61, heart rate 98, respiration 19, afebrile. Generally in no acute distress. Skin is warm and dry. Neck veins are not distended. Heart is regular. Lungs are equal, no crackles. Abdomen: Soft, obese, nontender. Extremities: Minimal edema. No clubbing or cyanosis. IMPRESSION: 1. Chronic kidney disease 5D. She will have her routine dialysis treatment tomorrow. 2. Electrolytes/acid base/anemia. All acceptable. I will ask the Wound Care Team to take a look at her hand. cc: MD Cedric Oswald MD
[2019-06-11] MEDS ORDERED: LOPRESSOR PO SCH (21:00)
[2019-06-11] MEDS: SINEQUAN PO SCH (21:21)
[2019-06-11] MEDS: TOPROL XL PO SCH (21:21)
[2019-06-11 22:55] LABS: URINE SOURCE CLEAN CATCH
[2019-06-11 22:59] LABS: BILIRUBIN URINE NEGATIVE (NEGATIVE); BLOOD URINE LARGE (NEGATIVE); COLOR ORANGE; GLUCOSE URINE NEGATIVE (NEGATIVE); KETONE URINE NEGATIVE (NEGATIVE); LEUKOCYTES URINE LARGE (NEGATIVE); NITRITE URINE NEGATIVE (NEGATIVE); PROTEIN URINE 300 mg/dL (NEGATIVE); SP GRAVITY URINE 1.017; TURBIDITY URINE TURBID (CLEAR); UROBILINOGEN URINE NORMAL (NORMAL)
[2019-06-11 23:06] LABS: UR EPITHELIAL CELLS >10 /HPF (<10); URINE BACTERIA 4+ /HPF; URINE RBC TNTC /HPF (<10); URINE WBC TNTC /HPF (<10)
[2019-06-11 23:11] LABS: URINE CASTS NONE SEEN; URINE CRYSTALS NONE SEEN; URINE SMALL ROUND CELLS NONE SEEN; URINE YEAST NONE SEEN
--- NOTE | 2019-06-12 05:35 | PROGRESS NOTE ---
DATE: 06/11/2019 SUBJECTIVE: A 78-year-old white female with events noted over the weekend. I appreciate Dr. Ruano's comments. He cannot do a thrombectomy of AV fistula. Currently, using tunnel catheter. Obviously, supposed to go to dialysis today has not been done. The patient was in atrial fibrillation on the Cardizem drip, has not been cut down over the weekend. I started back on metoprolol 50 b.i.d., and slowly wean off Cardizem at 1:00 in the afternoon. The patient is anxious to go home. PHYSICAL EXAMINATION: Temperature 97 degrees, heart rate is 107, and blood pressure is low.HEENT: Within normal limits. Neck: Supple. Chest: Clear and irregular heart sounds. Skin: Bilateral digital gangrene and dry changes noted. LABORATORY: None reported today. Elevated liver function tests. ASSESSMENT AND PLAN: 1. End-stage kidney disease on dialysis. 2. Thrombosis of AV fistula. 3. Atrial fibrillation. Continue on Eliquis and rate control with metoprolol. 4. Diabetes. Continue present treatment. 5. Hypothyroidism. Stable thyroid function test. 6. The patient is planning to go for dialysis. We will discuss with Dr. Marquez. He has to arrange thrombectomy in [place]. 7. We will follow up. LEVEL OF DOCUMENTATION: 25 minutes. cc: MD Cedric Arshad MD
[2019-06-12] MEDS: SYNTHROID PO SCH (06:06)
[2019-06-12] MEDS ORDERED: NS 2,000 ML MISC PRN (06:10)
[2019-06-12] MEDS ORDERED: TIGHT: 0.2 ML/HR FOR DIALYSIS MISC PRN (06:10)
[2019-06-12] MEDS ORDERED: HEPARIN IV PRN (06:10)
[2019-06-12] MEDS ORDERED: AYR NASAL SPRAY NAS ONE (07:59)
[2019-06-12] MEDS: NEURONTIN PO SCH (08:14)
[2019-06-12] MEDS: ROBAXIN PO SCH (08:15)
[2019-06-12] MEDS: HUMULIN 70/30 SUBQ SCH (08:15)
[2019-06-12] MEDS: IMDUR PO SCH (08:15)
[2019-06-12] MEDS: PLAVIX PO SCH (08:15)
[2019-06-12] MEDS: TOPROL XL PO SCH (08:15)
[2019-06-12] MEDS: NEPHRO-VITE PO SCH (08:15)
[2019-06-12] MEDS: ELIQUIS PO SCH (08:15)
[2019-06-12] MEDS: NORCO-5 PO PRN ×2 (08:19→16:15)
[2019-06-12 08:32] LABS: INR 1.29; PROTIME 16.3 Seconds (11.0-16.0)
[2019-06-12 08:42] LABS: BASO# 0.03 X1000 (0.0-0.2); BASO% 0.3 % (0.0-0.8); EOS# 0.19 X1000 (0.0-0.7); EOS% 1.6 % (0.0-10.0); HEMATOCRIT 30.6 % (37.0-47.0); HEMOGLOBIN 9.1 g/dL (12.0-16.0); IMM GRAN# 0.07 X1000 (0.0-0.04); IMM GRAN% 0.6 % (0.0-0.5); LYMPH# 2.13 X1000 (1.2-3.4); LYMPH% 17.9 % (20.5-51.1); MCH 28.3 PG (27-31); MCHC 29.7 g/dL (33-37); MONO# 1.13 X1000 (0.11-0.59); MONO% 9.5 % (1.7-9.3); MPV 9.9 FL (7.4-10.4); NEUT# 8.36 X1000 (1.4-6.5); NEUT% 70.1 % (42.2-75.2); PLT 333 X1000 (130-400); RBC 3.22 XMIL (4.2-5.4); RDW 15.7 % (11.5-14.5); WBC 11.91 X1000 (4.8-10.8)
--- NOTE | 2019-06-12 11:18 | GENERAL SURGERY PROGRESS NOTE ---
DATE: 06/12/2019 SUBJECTIVE: The patient has had some spontaneous bleeding from her nose, and it looks like subcutaneous in her abdomen. Otherwise doing about the same. OBJECTIVE: Vital Signs: The patient is currently afebrile. Her vital signs are stable. General: Chronically ill female. HEENT: No active bleeding from her nose. Cardiovascular: Regular rate and rhythm. Lungs: Grossly clear. Abdomen: Some ecchymosis noted periumbilically. Extremities: Thrombectomy site without active bleeding. Chest Wall: Catheter without active bleeding. ASSESSMENT AND PLAN: A 78-year-old female with thrombosed arteriovenous fistula secondary to essential stenosis. 1. Thrombosed arteriovenous fistula. At this time, she is getting dialysis through a tunneled hemodialysis catheter. Given the fact that she has got recurrent stenosis likely in the central aspect of her venous system, she needs to probably go to [place] for intervention. 2. Spontaneous bleeding. At this time, I told the nurse to get stat CBC and INR. She is on Plavix and Eliquis. May need to consider holding those for right now, but will follow up with labs. cc: MD Cedric Lucas MD
[2019-06-12 16:03] VITALS: BP 98/57
[2019-06-12] MEDS: TYLENOL PO PRN (16:15)
--- NOTE | 2019-06-12 17:02 | NEPHROLOGY PROGRESS NOTE ---
DATE: 06/12/2019 Subjective patient is lying in the bed resting aroused to verbal stimuli voices feeling weak. Objective: Vital signs. Temperature 97.9 heart rate 100 respirations 18 blood pressure 86/66 oxygenation 95% on 2 L nasal cannula. General: elderly white female lying in bed in acute distress. Skin: Multiple scattered bruising. Tunnel catheter to the right upper chest wall. Fistula to right upper arm. HEENT: atraumatic, normocephalic. conjunctiva pink, equal round and reactive, moist mucous membranes, Dried blood and nasal cavity. Neck: supple, None observed next things. Cardiovascular: Regular rate and rhythm no murmur or gallops noted Lungs: Clear with equal air excursion. Abdomen: soft, nontender with normoactive bowel sounds Extremities: 1+ edema, no clubbing or cyanosis Labs: WBC 11.9, RBC 3.2, hemoglobin 9.1, hematocrit 30.6, platelet count 333, PT 16.3, INR 1.29, intake 300, output 50 Impression: 1. End stage renal disease. She is on routine Tuesday Dialysis but while in hospital has been getting Tuesday treatment she plans to discharge after dialysis today and will follow up with regular dialysis treatment tomorrow in clinic. 2. Electrolytes. In target. 3. Acid-base balance. In target. 4. Anemia. Stable. cc: MD Cedric Oswald MD MTDD
--- NOTE | 2019-06-15 06:01 | DISCHARGE SUMMARY ---
ADMISSION DATE: 06/05/2019 DISCHARGE DATE: 06/12/2019 DISCHARGING DIAGNOSES: 1. Rapid atrial fibrillation is a chronic known case. 2. Thrombosis of arteriovenous fistula in the right forearm. 3. Urinary tract infection due to Klebsiella. 4. Peripheral vascular disease to both legs, left leg is worse than the right side with dry gangrene and not a candidate for vascularization. 5. Chronic back pain. 6. Hypertension. 7. Hyperlipidemia. 8. Type 2 diabetes. 9. Hypothyroidism. 10. Chronic peripheral neuropathy. CONSULTANTS: 1. Dr. Malcolm Marquez. 2. Dr. Ruano. PROCEDURES: 1. Failure of thrombectomy of right arteriovenous fistula. 2. Tunnel catheter placement on the right subclavian by Dr. Ruano. BRIEF HISTORY: Please see the H and P that was done by Dr. Rich Quinones. She is a 78-year-old white female who obviously had thrombosis of the right AV fistula and Dr. Marquez has sent her to [facility] for repair. Obviously, during the preop, the patient was found to have rapid atrial fibrillation, and sent back to [facility] emergency room. The patient was admitted for rapid atrial fibrillation requiring IV Cardizem drip. She is on Eliquis, Plavix and aspirin. Dr. Ruano was consulted. He was not able to do thrombectomy, and he placed a temporary tunneled catheter for hemodialysis. I did optimize the metoprolol to 50 mg twice a day for rate control. Continue on Eliquis and discontinue aspirin. She is also exhibiting dry gangrene mostly on both toes, mostly worse on the left side. At this time, just continue to observe. She has a living will DNR. Dr. Marquez is maintaining the dialysis. I would communicate about the antibiotics for UTI. It has been reported Klebsiella. It is sensitive to Levaquin and cephalosporins, and patient can receive the antibiotics post dialysis. LABORATORY: CBC: White cell count 11, hematocrit 30.6, and platelets 333,000. PT 16.3 and INR 1.2. DISCHARGE INSTRUCTIONS: 1. Living will DNR. 2. Synthroid 175 mcg daily. 3. [id number] mg at bedtime. 4. Multivitamin. 5. Folic Acid. 6. Vitamin B complex. 7. Vitamin C 1 tablet daily. 8. Robaxin 500 p.o. b.i.d. 9. Novolin 70/30 13 units subcutaneous b.i.d. 10. Neurontin 2 capsules p.o. b.i.d. 11. Isosorbide 30 mg daily. 12. Metoprolol 50 p.o. b.i.d. 13. Nitroglycerin as needed. 14. Plavix 75 daily. 15. Pletal 50 daily. 16. Hydroxyzine 50 at bedtime. 17. Eliquis 2.5 p.o. b.i.d. 18. Renagel 800 three tablets p.o. t.i.d. 19. Trinidad p.r.n. pain as per Dr. Marquez. 20. Continues to receive the maintenance dialysis through the dialysis clinic. 21. Dr. Ruano reported she needs to go back to [place] for thrombectomy of the AV fistula. cc: MD Cedric Arshad MD Reginald D. Gladish, MD Matthew L. Figh, MD MTDD
== END 2019-06-12 17:22 | disposition home health service (06) | DRG 252 ==
LOC: ED 13:48 → EDIPHOLD 20:40 → 2N 06-06 10:16
PROVIDERS: ADMIT Family Medicine; ATTEND Internal Medicine

== ENCOUNTER 2019-07-16 03:42 | Inpatient (IN) ==
[2019-07-16] MEDS ORDERED: 1/2 NS 500 ML ONE (06:26)
[2019-07-16] MEDS ORDERED: VANCOMYCIN 1 GM/NS 1 GM/250 ML IVPB ONE (06:27)
[2019-07-16] MEDS ORDERED: D50W SYRINGE IV ONE (06:42)
[2019-07-16 06:43] LABS: HEMATOCRIT 31.5 % (37.0-47.0); HEMOGLOBIN 9.1 g/dL (12.0-16.0); MCH 27.3 PG (27-31); MCHC 28.9 g/dL (33-37); MCV 94.6 FL (81-99); RBC 3.33 XMIL (4.2-5.4); RDW 16.6 % (11.5-14.5); WBC 11.62 X1000 (4.8-10.8)
[2019-07-16 07:02] LABS: CREATININE 8.2 mg/dL (0.5-0.9); POTASSIUM 4.4 mmol/L (3.5-5.1)
[2019-07-16 07:06] LABS: CALCIUM 6.9 mg/dL (8.8-10.2)
--- NOTE | 2019-07-16 07:16 | EKG Report ---
Test Performed on : 07/16/2019 07:10:31 AM Test Reason : preoperative Blood Pressure : / mmHG Vent. Rate : 098 BPM Atrial Rate : 092 BPM P-R Int : 000 ms QRS Dur : 078 ms QT Int : 392 ms P-R-T Axes : 000 079 067 degrees QTc Int : 500 ms Atrial fibrillation. Low voltage QRS Septal infarct (cited on or before 03-MAY-2014) Abnormal ECG When compared with ECG of 05-JUN-2019 14:21, (Unconfirmed) Atrial fibrillation. has replaced Atrial flutter. Nonspecific T wave abnormality no longer evident in Inferior leads Unconfirmed Result
[2019-07-16] MEDS ORDERED: DIPRIVAN 1% ONE (07:37)
[2019-07-16] MEDS ORDERED: FENTANYL ONE ×2 (07:37→09:56)
[2019-07-16] MEDS ORDERED: XYLOCAINE-MPF 2% ONE (09:15)
[2019-07-16] MEDS ORDERED: NEO-SYNEPHRINE ONE (09:15)
[2019-07-16] MEDS: DEMEROL ONE ×2 (09:38→09:43)
[2019-07-16] MEDS ORDERED: DEMEROL ONE (09:48)
[2019-07-16] MEDS ORDERED: VERSED ONE (09:52)
[2019-07-16] MEDS ORDERED: DURAMORPH ONE (09:56)
--- NOTE | 2019-07-16 09:58 | OPERATIVE NOTE ---
PROCEDURE DATE: 07/16/2019 PREOPERATIVE DIAGNOSES: 1. Severe peripheral vascular disease. 2. Gangrene of multiple left toes. 3. Gangrene of left third finger. POSTOPERATIVE DIAGNOSES: 1. Severe peripheral vascular disease. 2. Gangrene of multiple left toes. 3. Gangrene of left third finger. PROCEDURES: 1. Fluoroscopic examination of the left leg. 2. Left [id number] amputation. 3. Left third finger distal ray amputation. SURGEON: Dr. Kenny Ruano. ROUTE DELIVERY SERVICE DRIVER: None. ANESTHESIA: General endotracheal. INTRAOPERATIVE FINDINGS: Fluoro showed the patient did have a prosthesis in her knee, and we adjusted our amputation site accordingly. The patient did have peripheral vascular disease and dry gangrene. COMPLICATIONS: None. ESTIMATED BLOOD LOSS: 250 mL. SPECIMENS REMOVED: Leg and finger. DRAINS: None. BRIEF HISTORY: A 78-year-old female with severe peripheral vascular disease. We tried to treat her peripheral vascular disease medically. We had tried multiple times to get her interventional radiology evaluation for her extremities for clotted fistulas and CT angiography of her legs, but she had not been able to make those appointments, but her wounds had progressed to the point where they were needing amputation. Given the fact that she had poor circulation to her leg, I did not think she would heal toe amputations, so I discussed with her the need for a [id number] amputation. She had multiple toes involved. She also had dry gangrene in her finger on the left hand, which caused her significant discomfort. We elected to discuss amputation of that. The risks, benefits, and alternatives were discussed. All questions answered. DESCRIPTION OF PROCEDURE IN DETAIL: After informed consent was obtained, the patient brought to the operative theatre, transferred to the operative table, placed in supine position. General endotracheal anesthesia was then performed without complication. A formal time-out was then performed confirming patient, date, procedure. All in agreement. At that time attention turned toward the left leg. We brought the fluoro machine in, examined under fluoro images, found where the distal aspect of the elio for her total knee was marked to the skin distal to that and made our incision even distal to that. We wanted to make sure that we did not go through the knee prosthesis itself. We then made our standard posterior flap incision on the left knee after prepping and draping. After the time-out, we carried down to isolate the tibia. We used the periosteal elevator to free up the tibia from the surrounding tissue and used a saw to go through it. Again, we were able to be distal to the prosthesis. We then isolated the major vessels and suture ligated them. We then found the fibula and transected it with saw also. We then trimmed the muscle on the posterior flap to make it come around. We made a posterior flap and secured it in layers to the anterior flap using 0 Vicryl nylon and katie for the skin. There was good approximation. There was no bleeding. Again, we ligated all the major vessels. We then placed a sterile dressing on this and a knee immobilizer. We then turned our attention to the left finger. She had dry gangrene of the third digit on the left hand. We made an incision to incorporate the dry gangrene, carried all the way down to the distal interphalangeal joint, removed it, Bovie 'd the synovial side of the mid flange and then closed the skin with nylon. We placed a sterile dressing. The patient tolerated the procedure well. She will be admitted to the hospital. cc: Kenny Ruano MD
[2019-07-16] MEDS ORDERED: ZOFRAN IV PRN (10:29)
[2019-07-16] MEDS ORDERED: NORCO-5 PO PRN (10:29)
[2019-07-16] MEDS ORDERED: NEO-SYNEPHRINE 50 MG in NS 250 ML IV SCH (10:45)
[2019-07-16] MEDS ORDERED: CALCIUM CHLORIDE 1 GM in NS 100 ML IV ONE (11:15)
[2019-07-16] MEDS ORDERED: OFIRMEV 1000 MG/ISOTONIC SOLN 1,000 MG/100 ML BOTTLE ONE (12:05)
[2019-07-16] MEDS ORDERED: NORCO-5 ONE (12:40)
[2019-07-16] MEDS ORDERED: NORCO-5 PO ONE (14:57)
[2019-07-16] MEDS ORDERED: NORCO-10 PO PRN (14:58)
--- NOTE | 2019-07-16 16:43 | CARDIOLOGY CONSULTATION ---
DATE: 07/16/2019 REASON FOR CONSULTATION: Atrial fib. HISTORY OF PRESENT ILLNESS: Ms. Rivera is a 78-year-old female with chronic atrial fib, who presented as an outpatient for an elective BKA on the left. She was noted to be in atrial fibrillation, which is typical for her, but was also noted to not be on any anticoagulants. The patient is not aware of being told to stop them; she thinks she may have just discontinued them on her own when she did not get a refill. She had previously been on Coumadin, but was apparently in the last few months transferred over 2 Eliquis per her primary care physician. The patient denies any bleeding issues, palpitations, chest pain, or falling issues. PAST MEDICAL HISTORY: Significant for: 1. Atrial fibrillation. 2. End-stage renal disease. 3. Hypertension. 4. Hyperlipidemia. 5. Peripheral arterial disease. Now, status post left-sided BKA. SOCIAL HISTORY: No current tobacco use. No alcohol or illicit drugs. FAMILY HISTORY: Significant for hypertension. REVIEW OF SYSTEMS: A 10 system review of systems is negative, except for those mentioned in the HPI. PHYSICAL EXAMINATION: Vital Signs: She is afebrile. During my examination, her heart rates were anywhere from the low 100s to 120s. Blood pressure is 132/81. General: She is in mild distress secondary to pain from her left lower extremity. HEENT: Oropharynx is moist. Poor dentition. Eye examination is pink conjunctivae, white sclerae. Neck: Examination shows no obvious thyromegaly or thyroid tenderness. Cardiovascular: She sounds to be in an irregularly irregular, mildly tachycardic rhythm. She has no murmurs. She has no S3. She has no lower extremity edema. Chest: Her chest exam is clear bilaterally. She has no increased work of breathing. Abdomen: Soft, nontender. Extremities: Her extremities have no edema. She has a left-sided BKA. She has multiple dry ulcers to her right foot. Neurological: She is moving all extremities. She has no lateralizing deficits. PERTINENT DATA: Her EKG today shows atrial fib, rate of 98 beats per minute. She has somewhat low voltage. Her laboratory data demonstrated a white count of 11.6, hematocrit 31, platelet count 343. Her sodium is 137, potassium 4.4, BUN 57, creatinine is 8.2. ASSESSMENT: Ms. Rivera is a 78-year-old female with atrial fibrillation, end-stage renal disease and peripheral arterial disease. Status post left-sided below-knee amputation. PLAN: At this point, I will institute beta blockade with metoprolol at 25 q. 6 hours. We will try to restart her on Eliquis when safe from a postsurgical standpoint. The correct dose for this patient would be 5 mg b.i.d. Risks, benefits and alternatives to anticoagulation have been discussed with the patient and she agrees to proceed. She has a CHADS VASc score of 5 for female sex, vascular disease, age and history of hypertension. cc: MD Kenny Cruz MD
[2019-07-16] MEDS: LOPRESSOR PO SCH (19:34)
[2019-07-16] MEDS: OFIRMEV 1000 MG/ISOTONIC SOLN 1,000 MG/100 ML BOTTLE IV SCH (19:34)
--- NOTE | 2019-07-16 21:45 | CONSULTATION ---
DATE OF CONSULTATION: 07/16/2019 REASON FOR CONSULTATION: I was asked to follow up on medical management after the patient had a left BKA and the left 3rd finger amputation by Dr. Ruano. She is a complicated historian. The patient is in atrial fibrillation. She is supposed to go to [place]. Anyhow, the patient is in good spirits. She also has chronic kidney disease. The patient is on dialysis. Right AV graft was malfunctioning due to thrombosis. Currently has dialysis catheter on the right side. PAST MEDICAL HISTORY: Chronic atrial fibrillation, chronic back pain, end-stage kidney disease on dialysis through the dialysis catheter, malfunction of the right AV graft, hypertension, hyperlipidemia, type 2 diabetes, hypothyroidism, chronic peripheral neuropathy, PAD. PAST SURGICAL HISTORY: Malfunctioning of the right AV graft thrombosed, back surgery, knee surgery, hysterectomy, cholecystectomy, bilateral cataracts, and dialysis catheter on the right side. ALLERGIES: Reported to allopurinol, fenofibrate, penicillin, Crestor, Percodan, Dilaudid, Lipitor. SOCIAL HISTORY: She lives in [place]. Daughter lives in [place]. She is . No smoking. No drug abuse. FAMILY HISTORY: Noncontributory. MEDICATIONS: Synthroid 75 mcg daily, Novolin 70/30 thirty units subcutaneous b.i.d., Neurontin 200 two capsules daily, hydroxyzine 50 daily, metoprolol 50 daily, doxepin 10 daily, Pletal 50 p.o. b.i.d., isosorbide 20 t.i.d. REVIEW OF SYSTEMS: HEENT: No headache. No vision problem. No earache. No sore throat. Neck: No goiter. No lymphadenopathy. No bruit. Cardiopulmonary: No chest pain, shortness of breath. Basically irregular heart rate. GI: No nausea, vomiting, abdominal pain. Neurologic: No focal symptoms or weakness. EXAM: Vital signs: 5 feet 2, 148 pounds. Pulse is 112, blood pressure is stable. Temperature is 97.8 degrees. HEENT: Atraumatic, normocephalic. Pupils equal, reactive to light. TMs are normal. Nose and throat within normal limits. Neck: Supple. No lymphadenopathy. No goiter. Chest: Bilateral air entry. Irregular heart sounds. Dialysis catheter on the right side present. Abdomen: Belly is soft, nontender. Extremities: Status post below-knee amputation and 3rd finger amputation. LABS: CBC: White cell count 11, hematocrit 31, platelets 343,000. Sodium 137, potassium 4.4, BUN 57, creatinine 8.2. Glucose 75. Calcium 6.9. ASSESSMENT AND PLAN: A 78-year-old white female with complicated diabetes, peripheral arterial disease, status post below-knee amputation, and left 3rd finger amputation with following problems. 1. Diabetes. Continue present dose of insulin sliding scale. 2. Reconcile home medicines. 3. End-stage kidney disease as per Dr. Marquez. 4. Chronic atrial fibrillation basically rate control with metoprolol and the patient is on Eliquis 2.5 p.o. b.i.d. The patient was not taking due to noncompliance and I will reconcile home medications and appreciated consult and we will follow up. cc: MD Kenny Arshad MD
[2019-07-16] MEDS: HUMULIN R SUBQ SCH (21:56)
[2019-07-16] MEDS: DEMEROL IV PRN (23:58)
[2019-07-17] MEDS: DEMEROL IV PRN ×3 (03:00→09:04)
[2019-07-17] MEDS: OFIRMEV 1000 MG/ISOTONIC SOLN 1,000 MG/100 ML BOTTLE IV SCH ×3 (03:02→16:59)
[2019-07-17] MEDS: LOPRESSOR PO SCH ×3 (03:02→22:22)
[2019-07-17] MEDS: SYNTHROID PO SCH ×2 (05:53→06:26)
[2019-07-17] MEDS: HUMULIN R SUBQ SCH ×4 (06:25→22:23)
--- NOTE | 2019-07-17 06:27 | GENERAL SURGERY PROGRESS NOTE ---
DATE: 07/17/2019 Patient seems to be doing okay. She has been hemodynamically stable although she is in atrial fibrillation. She is restarted on her Lopressor. Her incisions seem to be healing well. We will have the prosthesis company come today to put a wound protector on. From a surgical point of view, it is likely okay for her to start her Eliquis back up. I appreciate the help of Cardiology and Dr. Adams. She can go on her regular scheduled hemodialysis. cc: Kenny Ruano MD
[2019-07-17] MEDS ORDERED: NS 2,000 ML MISC PRN (06:30)
[2019-07-17] MEDS ORDERED: TIGHT: 0.2 ML/HR FOR DIALYSIS MISC PRN (06:30)
[2019-07-17] MEDS ORDERED: HEPARIN IV PRN (06:30)
[2019-07-17] MEDS ORDERED: TOPROL XL PO SCH (09:00)
[2019-07-17] MEDS: PLETAL PO SCH ×2 (09:04→22:22)
[2019-07-17] MEDS: SINEQUAN PO SCH (09:04)
[2019-07-17] MEDS: NEURONTIN PO SCH (09:04)
[2019-07-17] MEDS: ATARAX PO SCH (09:04)
[2019-07-17] MEDS: ISORDIL PO SCH ×3 (09:04→17:34)
[2019-07-17] MEDS: HUMULIN 70/30 SUBQ SCH ×2 (09:08→22:25)
--- NOTE | 2019-07-17 11:05 | NEPHROLOGY CONSULTATION ---
DATE: 07/17/2019 Chief complaint: I had surgery HPI: Mrs. Rivera is A 78-year-old white female who is known to our hemodialysis clinic. She has a past medical history of chronic kidney disease 5D with treatment on MWF, chronic atrial fibrillation, hypertension, hyperlipidemia, and type two diabetes. She came in yesterday for an elective below knee amputation of the left extremity. Surgery was uncomplicated. It is noted that she has not been on any anticoagulation with a history of atrial fibrillation. Past medical history: chronic kidney disease stage 530, a truck ablation, chronic back pain, malfunction of the right AB graft, hypertension, hyperlipidemia, diabetes mellitus type two, hypothyroidism, peripheral neuropathy. Past surgical history: malfunctioning at the right AB graft from best, back surgery knee surgery, hysterectomy, cholecystectomy, bilateral cataract removal Family history: noncontributory Social history: Lives at home, denies tobacco, alcohol, and illicit drugs Allergies: allopurinol, fenofibrate, penicillin, Crestor, percodan, dilaudid, Lipitor Home medications: pletal, doxepin, gabapentin, hydroxyzine, Novolin 70/30, imdur, Synthroid, Toprol XL. Review of systems: . Neurological: denies altered mental status or confusion. Eyes: denies blurriness, or change in visual acuity. ENT: denies tinnitus or a change in hearing. Integumentary: denies color change, rash, itching. Respiratory: denies shortness of breath orthopnea. Denies productive cough. Cardiovascular: denies palpitations or chest pains. G.I.: denies constipation, nausea, and prominent. , patient is in uric and on dialysis. Endocrine: denies excessive thirst or hunger. Musculoskeletal: admits to increased pain in surgical extremity. Labs: WBC 11.62, hemoglobin 9.1, hematocrit 31.5, platelet count 343, sodium 137, potassium 4.4, chloride 96, carbon dioxide 15, anion gap 26, BUN 57, creatinine 8.2, calcium 6.9. intake 1275, output 475. Physical exam: temp 97.6, pulse 87, respiration 16, blood pressure 128/55, 02 sat 98% on 2 L nasal cannula. General: Elderly ill white female lying in bed in no acute distress. HEENT: atraumatic, normocephalic, trachea midline, oral membranes dry, pupils equal and reactive. SKIN: warm and dry, multiple bruises to upper extremities. Neck: supple, no jvd observed. Cardiovascular: S1s2, reguLar rate and rhythm, no murmur or gallop. Respiratory: clear bilaterally with equal excursion Abdominal: soft, nontender, nondistended, bowel sounds present : non inspected Extremities:Dressing to left hand, dressing to left BKA with bright red blood noted, right great toe necrotic, rhonchi to all lobes posterior bilateral Neurological: alert and oriented to person, place, and time. Assessment and plan: Ckd 5D. Will receive hemodialysis today. Electrolytes/acid base/volume status. In target. Medications reviewed. Discontinued Demerol and changed to scheduled tramadol. Further analgesic treatment as needed. She has listed allergies to hydromorphone, hydrocodone, and oxycodone which are the preferentially used narcotics in a dialysis patient. cc: MD Kenny Oswald MD [facility]ERS[facility]
[2019-07-17] MEDS: ULTRAM PO SCH ×2 (11:44→22:26)
[2019-07-17] MEDS: NORCO-5 PO PRN (17:53)
--- NOTE | 2019-07-17 20:32 | CARDIOLOGY PROGRESS NOTE ---
DATE: 07/17/2019 SUBJECTIVE: Ms. Rivera just came back from dialysis. She says she is feeling a little bit weak and has some discomfort in her amputation sites on her left hand and left leg. PHYSICAL EXAMINATION: Vital signs: She is afebrile. Heart rate has been somewhat fluctuant, anywhere from predominantly the 90s to low 100s. Her blood pressure is 115/73. General: She is in no acute distress. Cardiovascular: She sounds to be in an irregularly irregular rhythm which is consistent with her history of atrial fibrillation. She has no lower extremity edema. Chest: Sounds clear bilaterally. She has no increased work of breathing. Abdomen: Soft, nontender. PERTINENT DATA: She has no new laboratory data from today. ASSESSMENT: Ms. Rivera is a 78-year-old female with atrial fibrillation, who presented for an elective amputation of the left lower extremity and left middle finger. PLAN: Note from Surgery says Eliquis can be re-initiated. I will restart in the morning. I will increase her metoprolol to 50 q.8 and decrease her Isordil to 10 t.i.d. We are trying to achieve a more consistent rate control, which is likely being exacerbated by pain at this point, as well as reinstitution of her anticoagulants. Based on her age, weight, and kidney function, her appropriate dose would be 5 mg b.i.d. of Eliquis. Her weight is above 60 kg. cc: MD Kenny Cruz MD
--- NOTE | 2019-07-17 21:45 | PROGRESS NOTE ---
DATE: 07/17/2019 SUBJECTIVE: The patient is going for dialysis. Atrial fibrillation rate is well controlled. No complaints. Apparently, morphine was discontinued. Patient is on Tramadol, requesting for pain medicine. PHYSICAL EXAMINATION: Vital signs: Temperature is 98 degrees. Tachycardic. Vitals are stable. 144 pounds. HEENT: Within normal limits. Chest: Clear. Heart: Irregular heart sounds. Rest of the exam is benign. INVESTIGATIONS: Blood sugar is 67. Calcium is 6.9. ASSESSMENT AND PLAN: 1. Status post left below-knee amputation. 2. Atrial fibrillation. 3. Diabetes. 4. Living Will/Do Not Resuscitate in the past. 5. Dr. Duncan started on Eliquis. 6. Rate control. 7. Hypothyroidism, on Synthroid. 8. Hypocalcemia. Calcium gluconate was given. 9. Chronic neuropathic pain, on Neurontin. 10. Continue supportive care. Medically stable. 11. Disposition. Transfer to the rehab. LEVEL OF DOCUMENTATION: 25 minutes. cc: MD Kenny Arshad MD
[2019-07-18] MEDS: NORCO-5 PO PRN ×3 (01:36→09:37)
[2019-07-18] MEDS: SYNTHROID PO SCH ×2 (05:10→06:36)
[2019-07-18] MEDS: LOPRESSOR PO SCH ×3 (05:10→22:52)
[2019-07-18] MEDS: HUMULIN R SUBQ SCH ×4 (06:36→23:02)
[2019-07-18] MEDS: ATARAX PO SCH (08:31)
[2019-07-18] MEDS: PLETAL PO SCH ×2 (08:31→22:52)
[2019-07-18] MEDS: ISORDIL PO SCH ×3 (08:31→17:55)
[2019-07-18] MEDS: ELIQUIS PO SCH ×2 (08:31→22:51)
[2019-07-18] MEDS: NEURONTIN PO SCH (08:31)
[2019-07-18] MEDS: SINEQUAN PO SCH (08:33)
[2019-07-18] MEDS: ULTRAM PO SCH ×2 (08:34→22:52)
[2019-07-18] MEDS: HUMULIN 70/30 SUBQ SCH ×2 (08:35→23:03)
--- NOTE | 2019-07-18 10:15 | GENERAL SURGERY PROGRESS NOTE ---
DATE: 07/18/2019 SUBJECTIVE: Patient seems to be doing okay. OBJECTIVE: Vital Signs: Patient is currently afebrile. Her heart rate is still in the 100s with atrial fibrillation. Blood pressure stable. General: No acute distress. Cardiovascular: Irregularly irregular consistent with atrial fibrillation. Lungs: Grossly clear. Abdomen: Soft. Extremities: Left hand dressing intact. Left [id number] amputation dressing intact. ASSESSMENT AND PLAN: A 78-year-old female status post [id number] amputation and finger amputation the left: 1. Postoperative state at this time seems to be doing well. Her Eliquis has been restarted. 2. We will take down her dressing tomorrow to review her amputation and hopefully then she can be transferred. I suspect she is in the need to go to a rehab facility. cc: Kenny Ruano MD
[2019-07-18] MEDS: D5W 1,000 ML IV SCH (11:16)
[2019-07-18] MEDS: DILAUDID IV PRN ×2 (11:20→15:32)
--- NOTE | 2019-07-18 15:37 | PROVIDER PROGRESS NOTE ---
Progress Note Subjective: Lying in bed resting with eyes closed, aroused to verbal stimuli, voices not resting well and not having adequate pain control. Objective: temperature 97.9, pulse 108, respirations 17, blood pressure 115/78, 02 sat 100% on 2 L nasal cannula. General: Elderly ill white female lying in bed in no acute distress. HEENT: atraumatic, normocephalic, trachea midline, oral membranes dry, pupils equal and reactive. SKIN: warm and dry, multiple bruises to upper extremities. Neck: supple, no jvd observed. Cardiovascular: irreguLar rate and rhythm, no murmur or gallop. Respiratory: clear bilaterally with equal excursion Abdominal: soft, nontender, nondistended, bowel sounds present : non inspected Extremities:Dressing to left hand, dressing to left BKA with old drainage noted and outlined, right great toe necrotic Neurological: alert and oriented to person, place, and time. Labs: intake 440, output 400. Assessment and plan: Chronic kidney disease 5D. She received her routine hemodialysis yesterday. No changes. Acid base balance and electrolytes. Stable on last labs Anemia. Low but stable on last labs. Fluid volume. Euvolemic on exam. Nutrition. Hypoglycemic. Started d5w at low rate. Encouraged to increase the percentage of meals eaten. Ambulating. Will defer to surgeon for PT/OT Medications reviewed. Not meeting adequate pain control but has several allergies to narcotics. Will use dilaudid PRN sparingly.
--- NOTE | 2019-07-18 21:25 | CARDIOLOGY PROGRESS NOTE ---
DATE: 07/18/2019 SUBJECTIVE: Ms. Rivera continues to have a significant amount of pain that she rates as a 9/10 to a 9.5/10, related to her left lower extremity amputation. She denies any heart racing episodes. OBJECTIVE: She is afebrile. Her heart rate continues to be elevated today. It has been in the low 100s to 110s. Her blood pressure is 96/60. Generally she is in mild to moderate distress secondary to pain.Cardiovascular: She is in an irregularly irregular, somewhat tachycardic rhythm. Rate is in the 110s to 120s during my examination. She has no lower extremity edema. Her chest exam sounds clear bilaterally. She has no increased work of breathing. Her abdomen is soft, nontender. LABORATORY DATA: She has no laboratory data today, and did not have any yesterday. ASSESSMENT: Ms. Rivera is a 78-year-old female with a history of chronic atrial fibrillation, who came in for amputations. PLAN: She is on Eliquis. She is on 50 q.8 of metoprolol. I will add a p.r.n. IV Lopressor dose. I will recheck laboratories in the morning to ensure that she is not significantly anemic postoperatively, and that could potentially be contributing to the tachycardia. Most likely she has a significant pain complaint that is also contributing. No further recommendations at this time. cc: MD Kenny Cruz MD
--- NOTE | 2019-07-18 21:28 | PROGRESS NOTE ---
DATE: 07/18/2019 SUBJECTIVE: Patient is doing better. Pain is adequately controlled. Had hemodialysis yesterday. REVIEW OF SYSTEMS: None reported. Patient pretty much bedridden. PHYSICAL EXAMINATION: Vital signs: On exam, temperature is 98 degrees, atrial fibrillation, blood pressure is on the low side. HEENT: Within normal limits. Neck: Supple. Chest: Clear. Heart: Irregular heart sounds. Abdomen: Belly is soft, nontender. ASSESSMENT AND PLAN: 1. Status post below-knee amputation. 2. Status post left 3rd toe amputation. 3. Diabetes, doing well. 4. Dr. Duncan increased Lopressor to 50 q.8, Eliquis 5 mg p.o. b.i.d. 5. Low blood sugar, on dextrose 30 mL/h, and we can adjust insulin dose and decrease the Lantus 20 units subcutaneous b.i.d. 6. Patient is asking for pain medicines. [place] as needed and tramadol for breakthrough. 7. Going for dialysis. 8. Disposition. Needs to go for rehab and will follow up medically. LEVEL OF DOCUMENTATION: 25 minutes. cc: MD Kenny Arshad MD
[2019-07-19] MEDS: LOPRESSOR PO SCH ×3 (04:28→20:40)
[2019-07-19] MEDS ORDERED: HEPARIN IV PRN (05:30)
[2019-07-19] MEDS ORDERED: NS 2,000 ML MISC PRN (05:30)
[2019-07-19] MEDS ORDERED: TIGHT: 0.2 ML/HR FOR DIALYSIS MISC PRN (05:30)
[2019-07-19] MEDS: SYNTHROID PO SCH (06:19)
[2019-07-19] MEDS: HUMULIN R SUBQ SCH ×4 (06:37→22:48)
--- NOTE | 2019-07-19 06:58 | Diag Imaging Result Doc PS360 ---
EXAM: CT HEAD W/O CONTRAST 07/19/2019 HISTORY: AMS TECHNIQUE: This exam was performed using automated exposure control, adjustment of mA or kV according to patient size, and/or use of iterative reconstruction technique. COMMENT: There is decreased attenuation and cotton-white matter contrast in the posterior parietal and temporal lobes on the left. This was not the case on 03/21/2019. There are calcifications in both vertebral and internal carotid arteries. There is no evidence of mass effect bleed or abnormal extra-axial fluid collection. The calvarium is intact. The paranasal sinuses are clear. IMPRESSION: Subacute infarction in the posterior parietal and temporal lobes on the left. Electronically signed by Dre Rodriguez 07/19/2019 6:55 AM
[2019-07-19] MEDS: NEURONTIN PO SCH (08:45)
[2019-07-19] MEDS: ATARAX PO SCH (08:46)
[2019-07-19] MEDS: ULTRAM PO SCH ×2 (08:47→20:05)
[2019-07-19] MEDS: ELIQUIS PO SCH ×2 (08:48→20:05)
[2019-07-19] MEDS: PLETAL PO SCH ×2 (08:48→20:06)
[2019-07-19] MEDS: SINEQUAN PO SCH (08:48)
[2019-07-19] MEDS: ISORDIL PO SCH (08:48)
[2019-07-19 09:08] LABS: BASO# 0.01 X1000 (0.0-0.2); BASO% 0.1 % (0.0-0.8); EOS# 0.03 X1000 (0.0-0.7); EOS% 0.3 % (0.0-10.0); HEMATOCRIT 28.4 % (37.0-47.0); HEMOGLOBIN 8.2 g/dL (12.0-16.0); IMM GRAN# 0.05 X1000 (0.0-0.04); IMM GRAN% 0.6 % (0.0-0.5); LYMPH# 1.06 X1000 (1.2-3.4); LYMPH% 11.9 % (20.5-51.1); MCH 27.4 PG (27-31); MCHC 28.9 g/dL (33-37); MONO# 0.94 X1000 (0.11-0.59); MONO% 10.6 % (1.7-9.3); MPV 9.3 FL (7.4-10.4); NEUT% 76.5 % (42.2-75.2); PLT 298 X1000 (130-400); RBC 2.99 XMIL (4.2-5.4); RDW 17.3 % (11.5-14.5); WBC 8.89 X1000 (4.8-10.8)
[2019-07-19] MEDS: HUMULIN 70/30 SUBQ SCH ×2 (09:08→22:43)
[2019-07-19 09:24] LABS: LYMPHS 16 % (21-51); MONO 6 % (1-9); SEGS 78 % (42-75)
[2019-07-19 09:38] LABS: CREATININE 6.6 mg/dL (0.5-0.9); POTASSIUM 4.5 mmol/L (3.5-5.1)
--- NOTE | 2019-07-19 11:52 | GENERAL SURGERY PROGRESS NOTE ---
DATE: 07/19/2019 SUBJECTIVE: Patient is a little bit altered. She did get some Dilaudid yesterday but has persisted being altered. I have told the nursing staff to get a stat CT scan of her head. OBJECTIVE: Vital Signs: Patient is currently afebrile. She still has atrial fibrillation with a heart rate in the 110s. Blood pressure is stable. General: Somewhat altered. Cardiovascular: Irregular, irregular. Lungs: Grossly clear. Abdomen: Soft, nontender. Extremities: Amputation site taken down on the left leg. Wounds healing appropriately. Replaced the dressing. ASSESSMENT AND PLAN: A 78-year-old female, postoperative day #3 from [id number] amputation and finger amputation on the left. 1. Postoperative state. At this time, the amputation sites seems to be doing okay. 2. Altered mental status. At this time, we will get a CT scan of her head. 3. Disposition. I think she needs to go to a rehab facility. Will let Case Management know. cc: Kenny Ruano MD
[2019-07-19] MEDS: LOPRESSOR IV PRN ×2 (15:05→21:38)
[2019-07-19] MEDS: D5W 1,000 ML IV SCH (15:05)
--- NOTE | 2019-07-19 15:10 | PROVIDER PROGRESS NOTE ---
Progress Note Subjective: Lying in bed resting, minimal verbal response and does not open her eyes. Denies pain. Objective: temperature 97.9, pulse 110, respirations 21, blood pressure 115/51, 02 sat 98% on 2 L nasal cannula. General: Elderly ill white female lying in bed in no acute distress. HEENT: atraumatic, normocephalic, trachea midline, oral membranes dry, pupils equal and reactive. Left gaze noted. SKIN: warm and dry, multiple bruises to upper extremities. Neck: supple, no jvd observed. Cardiovascular: irreguLar rate and rhythm, no murmur or gallop. Respiratory: clear bilaterally with equal excursion Abdominal: soft, nontender, nondistended, bowel sounds present : non inspected Extremities:Dressing to left hand, dressing to left BKA with a boot stabilizer in place, right great toe necrotic, unable to squeeze my hands. Neurological: Drowsy, unable to follow commands Labs: intake 440, output 400. WBC 8.89, hemoglobin 8.2, hematocrit 28.4, platelet count 298. Impression: Chronic kidney disease 5D. She Will receive her routine hemodialysis today. No changes. Acid base balance and electrolytes. Stable on last labs Anemia. Low but stable on last labs. Fluid volume. Euvolemic on exam. Altered mental status. Acute versus subacute infarction. Nutrition. Improved from earlier. Ambulating. Limited by altered mental state Medications reviewed. No changes.
[2019-07-19] MEDS: NORCO-5 PO PRN ×2 (15:13→20:05)
[2019-07-19] MEDS ORDERED: HALDOL IV ONE ×2 (16:57→16:59)
[2019-07-19] MEDS: ATIVAN IV PRN ×2 (17:49→21:31)
[2019-07-19] MEDS ORDERED: STERILE WATER INJ. INJ ONE (20:23)
[2019-07-19] MEDS ORDERED: GEODON IM ONE (20:23)
--- NOTE | 2019-07-19 20:31 | CONSULTATION ---
DATE OF CONSULTATION: 07/19/2019 Ms. Rivera is 78 years old, and she appears to have become globally dysphasic within the last 24 hours. She has atrial fibrillation, hypertension, dyslipidemia, diabetes mellitus type 2, chronic kidney failure managed with hemodialysis, peripheral vascular disease, thyroid disease, recent amputations. She seemed stable neurologically through the earlier part of this admission. She was noted to be altered earlier today. She is not able to provide first-hand history due to her dysphasia. Workup includes noncontrast CT of the head showing early ischemic change in the posterior left hemisphere. This appears to be fairly extensive involving the parietal and temporal areas. I do not have a detailed past neurologic history. I have reviewed the medical record available in the computer. I do not see mention of prior stroke or other prior neurologic event. There is report in the computer system of prior CT of the head which did not show the changes noted on current scan. I had seen her in 2013 with transient altered mental state which was thought to be likely toxic/metabolic, and that resolved. On exam, Ms. Rivera is undergoing dialysis. She is asleep, easily waked, alert and very attentive during my interview. She made good effort at following my instructions, but was unable to do so. She did smile appropriately when I called her name, and she did not smile similarly when I called her by other names. She did not follow any commands. She mimicked inconsistently. She used both arms purposefully. Tone is symmetric in the arms. Plantar response is extensor on the right. She does not have left foot. She was not attentive to sensory testing over the hands. She has full lateral eye movement. Facial motility is diminished on the right in an upper motor neuron pattern. Tongue appears to be midline, but hard to get her to protrude that consistently. Neck is supple. She blinked with visual threat approaching from the left more consistently than the right. She did not answer consistently when asked to count fingers in the left or right field. IMPRESSION: Imaging evidence of acute likely dominant left hemisphere infarction with clinical finding of global dysphasia, possibly right hemianopia, minimal right hemiparesis, chiefly facial asymmetry. She has risk factors as stated above. She appears awake and alert, and there is no evidence of increased intracranial pressure at this point. I suspect she is not a candidate for aggressive intervention for stroke management at this point. We can follow clinically, get usual workup with carotid ultrasound, and plan to repeat brain imaging electively. That can be done sooner if she deteriorates. If not contraindicated from the standpoint of managing her other problems, we might allow her blood pressure up a little bit. Would continue to treat blood sugar and lipids aggressively. Thanks for asking Neurology to see Ms. Rivera. cc: MD Kenny Claros III, MD MTDD
--- NOTE | 2019-07-19 22:36 | PROGRESS NOTE ---
DATE: 07/19/2019 SUBJECTIVE: Dr. Ruano called me. She has altered mental status. She was given Dilaudid. She is due for dialysis. She is extremely agitated, combative. Dr. Ruano thinks there is a significant altered mental status. Spoke to me on the telephone. CT scan showed subacute infarct on the left side of the temporoparietal area. Unusual to get the CT findings with a stroke within 24 hours. She is able to move all the extremities, and she is combative. This could be opiate-induced neurotoxicity with Dilaudid, [place], and nevertheless, the patient's mental status deteriorated with combination of delirium along with possible stroke. I did review the CT with Dr. Rodriguez. There is no hemorrhage. The patient is in atrial fibrillation with anticoagulation on Eliquis. The patient is not able to focus. OBJECTIVE: On examination, she is in atrial fibrillation. Blood pressure is stable. Combative. No obvious deficits or facial asymmetry noted. ASSESSMENT AND PLAN: Altered mental status, acute deterioration. Rule out stroke. Rule out opioid-induced neurotoxicity. Plan is: 1. Repeat CT in the morning. Neurology consult appreciated. 2. Carotid Dopplers. 3. Discontinue Dilaudid, and we will use the Geodon, Haldol, Ativan as needed. Patient is very combative and is requiring restraints. 4. I have seen the patient twice in the past. The patient does have living will/DNR, refused palliative services in the past. I spoke to Dr. Ruano, and in the meantime, we will try to reach the family members in [place]. At this time, we will use the benzodiazepines as needed for delirium. 5. Follow up on carotid Dopplers. LEVEL OF DOCUMENTATION: 35 minutes. cc: MD Kenny Arshad MD
[2019-07-19] MEDS ORDERED: OFIRMEV 1000 MG/ISOTONIC SOLN 1,000 MG/100 ML BOTTLE IV ONE (23:54)
--- NOTE | 2019-07-20 01:11 | EKG Report ---
Test Performed on : 07/19/2019 11:30:26 PM Test Reason : HR 140 Blood Pressure : / mmHG Vent. Rate : 127 BPM Atrial Rate : 120 BPM P-R Int : 000 ms QRS Dur : 070 ms QT Int : 314 ms P-R-T Axes : 000 078 071 degrees QTc Int : 456 ms Atrial fibrillation. with rapid ventricular response. Low voltage QRS Septal infarct (cited on or before 03-MAY-2014) Abnormal ECG When compared with ECG of 16-JUL-2019 07:10, Nonspecific T wave abnormality now evident in Inferior leads Nonspecific T wave abnormality, worse in Anterolateral leads Unconfirmed Result
[2019-07-20] MEDS: NORCO-5 PO PRN ×4 (01:26→15:42)
[2019-07-20] MEDS: ULTRAM PO SCH ×3 (01:27→20:32)
[2019-07-20] MEDS: ATIVAN IV PRN ×3 (01:31→15:43)
[2019-07-20] MEDS: LOPRESSOR IV PRN (03:37)
[2019-07-20] MEDS: SYNTHROID PO SCH ×2 (05:47→07:50)
[2019-07-20 06:51] LABS: ALBUMIN 3.3 g/dL (3.5-5.0); CALCIUM 7.8 mg/dL (8.8-10.2); CREATININE 4.1 mg/dL (0.5-0.9); PHOSPHORUS 5.3 mg/dL (2.7-4.5); POTASSIUM 3.5 mmol/L (3.5-5.1)
[2019-07-20] MEDS: HUMULIN R SUBQ SCH ×4 (07:50→21:55)
--- NOTE | 2019-07-20 08:22 | Diag Imaging Result Doc PS360 ---
CT HEAD W/O CONTRAST - 07/20/2019 INDICATION: MENTAL STATUS CHANGE COMPARISON: 07/19/2019 FINDINGS: There has been some decrease in the density of the large infarction in the posterior left middle cerebral artery territory. No mass effect or intracranial hemorrhage. Otherwise, no new abnormalities. IMPRESSION: Evolving large left cerebral hemisphere infarction. This exam was performed using automated exposure control, adjustment of mA or kV according to patient size, and/or use of iterative reconstruction technique Electronically signed by Samuel Delgado 07/20/2019 8:20 AM
[2019-07-20] MEDS: ELIQUIS PO SCH ×2 (10:25→20:33)
[2019-07-20] MEDS: PLETAL PO SCH ×2 (10:25→20:32)
[2019-07-20] MEDS: LOPRESSOR PO SCH ×2 (10:26→20:32)
[2019-07-20] MEDS: HUMULIN 70/30 SUBQ SCH (10:31)
[2019-07-20] MEDS: NEURONTIN PO SCH (10:31)
[2019-07-20] MEDS: SINEQUAN PO SCH (10:31)
[2019-07-20] MEDS: ATARAX PO SCH (10:31)
--- NOTE | 2019-07-20 11:46 | GENERAL SURGERY PROGRESS NOTE ---
DATE: 07/20/2019 SUBJECTIVE: Patient has been combative through the night, difficult to give medicines to. Her CT scan yesterday showed a subacute infarct. Had an extensive discussion with Dr. Adams yesterday. Neurology has been consulted and she does have a repeat CT scan ordered for this morning. Per Neurology's note, she is not a candidate for aggressive intervention. OBJECTIVE: Vital Signs: Patient is currently afebrile. She is still having somewhat irregular heart rate with her atrial fibrillation, but her blood pressure seems to be still relatively high with the most recent one 143/100. General: Combative, confused. Cardiovascular: Irregularly irregular. Lungs: Grossly clear. Abdomen: Soft, nondistended, nontender. Extremities: Amputation sites seem to be healing well. ASSESSMENT AND PLAN: A 78-year-old female, currently postoperative day #3 from a ynhxe-fnj-vwxy amputation and finger amputation on the left. 1. Postoperative state. At this time, amputation sites seem to be healing. We will continue to monitor. 2. Altered mental status. At this time, there is concern that she did have a subacute stroke. She has been combative. We will try to continue supportive care. 3. Disposition. At this time, we will await further resolution of altered mental status but continue to monitor while she is in the hospital. cc: Kenny Ruano MD
--- NOTE | 2019-07-20 12:24 | Carotid Study ---
DATE: 07/19/2019 REQUESTING PHYSICIAN: Dr. Adams. MAKER UP FOLDING: Torie. INDICATIONS: Syncope and altered mental status. EQUIPMENT: beatlab Vivid E9 ultrasound system and 9 L-D transducer. Previous comparison from 06/23/2013. FINDINGS: Complete diagram of ultrasound images can be seen scanning the patient's medical record. The peak systolic velocity noted on the right side is in the proximal internal carotid artery. The peak systolic velocity noted on the left side is in the distal internal carotid artery. It is measured to be 94 on the right and 56 on the left. Calculated internal carotid ratio on the right is 1.77, left 0.87, calculated stenosis 0 to 39 percent bilaterally. There is some artifact in this study secondary to patient's compliance during the procedure. There is also atherosclerosis more prominently noted on the right side visually, but this does not produce a hemodynamically significant flow-limiting stenosis by strict velocity criteria, both vertebral arteries were antegrade flow. INTERPRETATION: By strict velocity criteria, no hemodynamically significant flow-limiting stenosis. The patient's agitation does limit the interpretive ability of this study. cc: MD Mu Lucas MD
--- NOTE | 2019-07-20 12:51 | PROGRESS NOTE ---
DATE: 07/20/2019 OBJECTIVE: Ms. Rivera is supine, wrists restrained. She is awake and alert. She was attentive to me. She seemed to try to communicate but, was unable to do so. Speech is gibberish. She did squeeze my hands to command, but I am not certain she understood the command. Entry Level Project Coordinator strengths are equal on the left and right. She seems to have symmetric tone in the arms. The right lower facial weakness is minimal today. Tongue is midline. She has good lateral eye movements. I tried to test vision, but could not recognize definite blink with visual threat approaching from her left or from her right. Neck is supple. DIAGNOSTIC: Repeat CT showed expected evolution of the changes of acute left hemisphere infarction. There was no bleeding. ASSESSMENT AND PLAN: I do not have any new thoughts or new suggestions from Neurology standpoint. She has had large infarction in the dominant left hemisphere, and she remains globally dysphasic with remarkably little hemiparesis. In light of her medical problems, prognosis is uncertain. Time will tell. I do not have any urgent suggestion today. Thanks for asking Neurology to see Ms. Rivera. cc: MD Kenny Claros III, MD MTDD
[2019-07-20] MEDS ORDERED: D50W SYRINGE IV ONE (16:38)
[2019-07-20] MEDS: D5W 1,000 ML IV SCH (17:01)
[2019-07-20] MEDS: D50W SYRINGE IV PRN ×2 (18:14→21:44)
--- NOTE | 2019-07-20 19:53 | PROGRESS NOTE ---
DATE: 07/20/2019 SUBJECTIVE: The patient had a repeat CT. Last night she was agitated, restrained, requiring Geodon, Ativan, Haldol. She is not able to see. No obvious droop or facial weakness noted. Repeat CT showed a large left parieto-occipital stroke. No hemorrhage. REVIEW OF SYSTEMS: None reported other than agitation. PHYSICAL EXAMINATION: Temperature is 97 degrees, pulse 98, blood pressure 114/72, on 3 L nasal cannula 98%. She is awake, docile, restrained. Physical exam no change. LABS: Carotid Dopplers were negative. Sodium 135, potassium 3.5, BUN 19, creatinine 4.1. LFTs were normal. ASSESSMENT AND PLAN: 1. Cerebrovascular accident on the left side, parieto-occipital stroke. 2. Carotid Dopplers, no hemodynamics stenosis. 3. Atrial fibrillation, on Eliquis, rate controlled. 4. End-stage kidney disease, on dialysis. 5. Peripheral artery disease, status post below-knee amputation and left 3rd finger amputation by Dr. Ruano. 6. Mental status changes. N.p.o. 7. Diabetes, not taking food. 8. Hypoglycemia. D5 was given. Discontinue insulin. 9. Living Will, Do Not Resuscitate. Will discuss with the family about future plans. Probably needs to go for rehab. 10. Chronic pain. Will give judicious use of pain medicines. 11. Needs speech therapy evaluation since she had a stroke. She is not eating and we may start some Clinimix. 12. Malfunction of the arteriovenous fistula graft on the right side. LEVEL OF DOCUMENTATION: 25 minutes. cc: MD Kenny Arshad MD
[2019-07-20] MEDS: CLINIMIX E 4.25%-5% SOLUTION 1,000 ML IV SCH (20:31)
--- NOTE | 2019-07-20 21:24 | NEPHROLOGY PROGRESS NOTE ---
DATE: 07/20/2019 SUBJECTIVE: She grimaces, but I cannot get any other response from her. She was seen by Dr. Ugarte this morning who had no other new recommendations for management of her large left hemisphere infarct. OBJECTIVE: Vital Signs: Blood pressure 114/72, heart rate 98, respirations 16, afebrile. General: Mental status as above. No acute distress. Skin: Warm and dry. Neck: Neck veins are not appreciated. Heart: Regular. Lungs: Equal. No crackles. Abdomen: Soft, nontender. Extremities: No edema. IMPRESSION: Chronic kidney disease 5D. Obviously, the patient is not able to relate her wishes at this time. She has made herself Do Not Resuscitate in the past. It is my opinion that she would not be willing to continue to undergo aggressive medical care, given her devastating stroke. I discussed this with Sheree Stack, who will see the patient in consultation and discuss with the family. cc: MD Kenny Oswald MD
[2019-07-21] MEDS: SYNTHROID PO SCH ×2 (05:33→06:07)
[2019-07-21] MEDS: HUMULIN R SUBQ SCH ×3 (06:05→17:43)
[2019-07-21] MEDS ORDERED: NS 2,000 ML MISC PRN (07:21)
[2019-07-21] MEDS ORDERED: HEPARIN IV PRN (07:21)
[2019-07-21] MEDS ORDERED: TIGHT: 0.2 ML/HR FOR DIALYSIS MISC PRN (07:21)
[2019-07-21 07:34] LABS: ALBUMIN 3.3 g/dL (3.5-5.0); CALCIUM 7.3 mg/dL (8.8-10.2); PHOSPHORUS 5.7 mg/dL (2.7-4.5); POTASSIUM 4.1 mmol/L (3.5-5.1)
[2019-07-21] MEDS: ATIVAN IV PRN ×2 (07:50→12:11)
[2019-07-21] MEDS: CLINIMIX E 4.25%-5% SOLUTION 1,000 ML IV SCH (08:06)
[2019-07-21] MEDS: LOPRESSOR PO SCH ×2 (08:13→21:19)
[2019-07-21] MEDS ORDERED: APRESOLINE IV PRN (08:50)
[2019-07-21] MEDS: SINEQUAN PO SCH (09:45)
[2019-07-21] MEDS: ATARAX PO SCH (09:45)
[2019-07-21] MEDS: NEURONTIN PO SCH (09:45)
[2019-07-21] MEDS: ELIQUIS PO SCH ×2 (09:45→21:19)
[2019-07-21] MEDS: PLETAL PO SCH ×2 (09:45→21:20)
[2019-07-21] MEDS: ULTRAM PO SCH ×2 (09:46→21:18)
--- NOTE | 2019-07-21 11:48 | PROGRESS NOTE ---
DATE: 07/21/2019 SUBJECTIVE: The patient remains quite debilitated. She is not seeing well and not able to converse. She does move all extremities, has a BKA on the left and finger amputations on the left. OBJECTIVE: Afebrile. Pulse 127, respirations 17, blood pressure is elevated at 170/113, O2 saturation on 2 L 100%.CV: Irregularly, irregular, tachycardia. Lungs: Clear. Abdomen: Nontender, nondistended. Extremities: The left BKA is healing well with katie in place. Necrotic appearing toes on the right, prominent. No lower extremity edema on the right. Neurologic: Patient moves all extremities. Does not follow commands. Not able to see. LABS: Sodium 134, potassium 4.1, chloride 93, CO2 24, BUN 28, creatinine 5.0, blood sugars in 100s primarily, calcium 7.3, phosphorus 5.7, albumin 3.3. ASSESSMENT: 1. Status post ischemic cerebrovascular accident on the left. 2. Chronic atrial fibrillation on Eliquis. 3. End-stage renal disease on hemodialysis per Dr. Marquez. 4. Peripheral arterial disease, status post left below knee amputation and left 3rd finger amputation per Dr. Ruano. 5. Diabetes mellitus. 6. Do Not Resuscitate level 1. 7. Chronic pain syndrome. 8. Hypothyroidism. PLAN: Add p.r.n. hydralazine for markedly elevated blood pressures. Otherwise, continue supportive care. She is on metoprolol orally if she will take it. If not, she has p.r.n. Lopressor ordered as well. cc: MD Kenny Patel MD
--- NOTE | 2019-07-21 13:44 | PROGRESS NOTE ---
DATE: 07/21/2019 Ms Teresa Rivera is a 78-year-old white female who appears to be confused. She underwent a left szedk-okl-gnaw amputation per Dr. Ruano. It is intact but she keeps pulling the dressing off. I discussed with the nurses about dressing the wound. cc: MD Kenny Joseph MD
[2019-07-21] MEDS: D5W 1,000 ML IV SCH (17:43)
[2019-07-21] MEDS ORDERED: ATIVAN IV ONE (20:32)
[2019-07-21] MEDS: NORCO-5 PO PRN (21:10)
[2019-07-22] MEDS: ATIVAN IV PRN ×3 (00:02→23:15)
[2019-07-22] MEDS: NEURONTIN PO SCH ×3 (00:41→23:15)
[2019-07-22] MEDS: CLINIMIX E 4.25%-5% SOLUTION 1,000 ML IV SCH ×4 (01:18→21:44)
[2019-07-22] MEDS: HUMULIN R SUBQ SCH ×5 (01:21→22:00)
[2019-07-22] MEDS: SYNTHROID PO SCH ×2 (05:52→06:07)
[2019-07-22] MEDS: D5W 1,000 ML IV SCH ×2 (08:25→17:08)
[2019-07-22] MEDS: PLETAL PO SCH ×2 (08:26→20:34)
[2019-07-22] MEDS: ATARAX PO SCH (08:26)
[2019-07-22] MEDS: NORCO-5 PO PRN ×2 (08:26→17:42)
[2019-07-22] MEDS: LOPRESSOR PO SCH ×2 (08:26→20:33)
[2019-07-22] MEDS: ELIQUIS PO SCH ×2 (08:27→20:34)
[2019-07-22] MEDS: ULTRAM PO SCH ×2 (08:27→20:34)
[2019-07-22] MEDS: SINEQUAN PO SCH (08:27)
--- NOTE | 2019-07-22 11:04 | PROGRESS NOTE ---
DATE: 07/22/2019 SUBJECTIVE: Patient currently is resting comfortably. She has had periods of agitation. She got some after Ativan last night. She is arousable here but the Ativan has helped with the agitation overall. OBJECTIVE: Afebrile, pulse 91, respirations 18, blood pressure 113/64 O2 saturation on 2 L 100%.CV: Irregularly irregular. Lungs: CTA. Abdomen: Protuberant, soft, nontender, nondistended. Extremities: Left BKA katie in place, healing well. Some necrotic areas on the toes on the right persist. LABORATORY DATA: No new lab data today. ASSESSMENT: 1. Status post ischemic cerebrovascular accident on the left. 2. Chronic atrial fibrillation on Eliquis. 3. End-stage renal disease on hemodialysis per Dr. Marquez. 4. Peripheral artery disease, status post left zvmuo-ldlu-mkiwcunbko per Dr. Ruano and left 3rd finger amputation per Dr. Ruano. 5. Diabetes mellitus. 6. Do not resuscitate level 1. 7. Chronic pain syndrome. 8. Hypothyroidism. 9. Delirium. PLAN: 1. Continue p.r.n. hydralazine and Lopressor as needed. 2. She is on daily metoprolol as well. 3. Continue hemodialysis and monitor and help with her delirium as well with p.r.n. Ativan. cc: MD Kenny Patel MD
--- NOTE | 2019-07-22 13:53 | PROGRESS NOTE ---
DATE: 07/22/2019 Ms. Teresa Rivera's left nkqvw-baz-bumd amputation stump remains intact. She does not allow a dressing to be on it. There is no evidence of infection. She does have some contraction of the knee. cc: MD Kenny Joseph MD
[2019-07-23] MEDS ORDERED: ATIVAN IV ONE (01:13)
[2019-07-23] MEDS: CLINIMIX E 4.25%-5% SOLUTION 1,000 ML IV SCH ×3 (04:04→22:24)
[2019-07-23] MEDS: ATIVAN IV PRN ×6 (06:00→22:21)
[2019-07-23] MEDS: HUMULIN R SUBQ SCH ×4 (06:08→22:32)
[2019-07-23] MEDS: SYNTHROID PO SCH (06:08)
--- NOTE | 2019-07-23 06:19 | GENERAL SURGERY PROGRESS NOTE ---
DATE: 07/23/2019 The patient has remained agitated. She was transferred to the 4th floor but she has been agitated through the night. She apparently has taken off her knee immobilizer several times and has been pulling at several lines in IVs in her Vas-Cath. Discussed with charge nurse we will need to keep her knee immobilizer on to try to limit the amount of contracture that could develop in her rfykm-dlc-axpd amputation site. Otherwise, the wound itself appears to be healing okay. The main issue at this point is going to be her agitation. She has got p.r.n. Ativan but she apparently spits out any of her p.o. medications per the nurse's notes. We will continue to follow her. cc: MD MUSTAPHA Lucas
[2019-07-23 09:07] LABS: HEMATOCRIT 28.9 % (37.0-47.0); HEMOGLOBIN 8.7 g/dL (12.0-16.0); MCH 27.6 PG (27-31); MCHC 30.1 g/dL (33-37); MCV 91.7 FL (81-99); MPV 9.5 FL (7.4-10.4); RBC 3.15 XMIL (4.2-5.4); RDW 17.3 % (11.5-14.5); WBC 11.49 X1000 (4.8-10.8)
[2019-07-23] MEDS: ATARAX PO SCH (09:44)
[2019-07-23] MEDS: PLETAL PO SCH ×2 (09:47→22:25)
[2019-07-23] MEDS: SINEQUAN PO SCH (09:48)
[2019-07-23] MEDS: ULTRAM PO SCH ×2 (09:48→22:24)
[2019-07-23] MEDS: LOPRESSOR PO SCH ×2 (09:48→22:26)
[2019-07-23] MEDS: ELIQUIS PO SCH ×2 (09:49→22:25)
[2019-07-23 10:06] LABS: ALBUMIN 3.4 g/dL (3.5-5.0); CALCIUM 7.6 mg/dL (8.8-10.2); CREATININE 4.3 mg/dL (0.5-0.9); PHOSPHORUS 5.5 mg/dL (2.7-4.5); POTASSIUM 3.9 mmol/L (3.5-5.1)
--- NOTE | 2019-07-23 10:45 | NEPHROLOGY PROGRESS NOTE ---
DATE: 07/21/2019 SUBJECTIVE: Patient resting in bed. She is drowsy but awake. OBJECTIVE: Vital Signs: Temperature 97.7 degrees, pulse 101, respiratory rate 20, blood pressure 118/59. Intake 2.3 L, output none. PHYSICAL EXAMINATION: General: This is a chronically ill-appearing, elderly female, resting in bed. She is awake and alert. She del cid not appear in distress. She is drowsy. HEENT: Normocephalic, atraumatic. PERRL. Oral mucosa dry. Neck: Supple without JVD. Cardiovascular: Regular rate and rhythm. Pulmonary: She has equal excursion. Clear bilaterally. She is on room air. Abdomen: Obese soft, positive bowel sounds. : Minimal void with hemodialysis assist. Extremities: She has a left BKA. A staple line is open to air. There is no drainage noted. Right lower extremity- she has multiple toes with eschar noted. Does have edema to the right lower extremity, pretibial and pedal. Integumentary: Skin is warm and dry otherwise. She does have a tunneled dialysis catheter insertion site upper right chest wall, clean dry and intact. LABORATORY DATA: None pending. ASSESSMENT AND PLAN: 1. Chronic kidney disease 5 D. The patient routinely dialyzes on a Tuesday, , Tuesday schedule. Again there is some concern if the patient and her family would want to continue with aggressive therapy to include dialysis secondary to her stroke. 2. We will continue to work with the other teams to develop a plan of care. Dictated by NATHALIA Calhoun for Malcolm Marquez MD Face to face encounter, data reviewed, discussed with David Serrano on 07/23/19. I agree with the above assessment and plan of care. cc: MD Kenny Oswald MD MTDD
[2019-07-23] MEDS ORDERED: CALMOSEPTINE OINTMENT TOP PRN (14:02)
--- NOTE | 2019-07-23 14:35 | PROGRESS NOTE ---
DATE: 07/23/2019 LOCATION: Room 421. SUBJECTIVE: Ms. Rivera has not had any clinically recognized neurologic change, but she has been less attentive. OBJECTIVE: During my time at the bedside, she was groaning with each breath, groaning more loudly after minor noxious stimulation, but she did not speak to me, look at me, regard me, or follow commands, and she did not communicate with me in any way. I do not have any new thoughts from a Neurology standpoint. There is recent dominant left hemisphere infarction of significant extent with global dysphasia and minimal right hemiparesis. Based on her other medical problems, prognosis is not good. I do not think she is a candidate for aggressive interventional management of stroke. No suggestions from Neurology today. Thank you for asking me to see Ms. Rivera. cc: MD Kenny Claros III, MD MTDD
[2019-07-23] MEDS: D5W 1,000 ML IV SCH (17:02)
--- NOTE | 2019-07-23 19:08 | Diag Imaging Result Doc PS360 ---
EXAM: CHEST-1 VIEW INDICATION: REHAB TECHNIQUE: One view COMPARISON: 06/06/2019 FINDINGS: The central lines are in stable positions. Inspiration is suboptimal similar to the previous study. Bilateral fibrotic changes, most prominent at the right lung base are unchanged. No new consolidation is identified. There is no discrete pleural fluid collection or pneumothorax. The cardiomediastinal silhouette and central vasculature are grossly unremarkable. IMPRESSION: Stable fibrotic changes. No definite acute chest pathology, otherwise. Electronically signed by Robbin Roberts 07/23/2019 7:05 PM
--- NOTE | 2019-07-23 21:40 | PROGRESS NOTE ---
DATE: 07/23/2019 SUBJECTIVE: The patient was moved out of the [facility]. Patient is in restraints with a lot of pain. Physical exam no change. The patient is in moribund state. PHYSICAL EXAM: Temperature is 98 degrees, tachycardic. Vitals are stable. Completely confused and in a lot of pain. Physical exam no change. INVESTIGATIONS: White cell count 11, hematocrit 28, platelets 358,000. Sodium 134, potassium 3.9, BUN 51, creatinine 4.3. ASSESSMENT AND PLAN: I spoke to Dr. Kenny Ruano. He agreed the patient's condition deemed to be terminal. No quality of life with each stroke. I tried to reach the family members. Not available. In the meantime, we will give Ativan, comfort care, living will DNR and increase the Ativan and restraints as needed. Continue supportive care. Appreciated palliative care consult. At this time, her condition deemed to be terminal. There is no quality of life. PPS score is less than 50%. Not able to eat or take any medications and Dasia, palliative care consult, is going to talk to the family and withdrawal support, which includes dialysis. In the meantime, continue Ativan for agitation. cc: MD Kenny Arshad MD
[2019-07-23] MEDS: NEURONTIN PO SCH (22:26)
[2019-07-24] MEDS: ATIVAN IV PRN ×5 (01:04→15:31)
[2019-07-24] MEDS: CLINIMIX E 4.25%-5% SOLUTION 1,000 ML IV SCH (06:26)
[2019-07-24] MEDS ORDERED: TIGHT: 0.2 ML/HR FOR DIALYSIS MISC PRN (06:27)
[2019-07-24] MEDS ORDERED: NS 2,000 ML MISC PRN (06:27)
[2019-07-24] MEDS ORDERED: HEPARIN IV PRN (06:27)
[2019-07-24 07:10] LABS: HEMATOCRIT 28.8 % (37.0-47.0); MCH 28.5 PG (27-31); MCHC 31.3 g/dL (33-37); MCV 91.1 FL (81-99); MPV 10.2 FL (7.4-10.4); RBC 3.16 XMIL (4.2-5.4); RDW 17.6 % (11.5-14.5); WBC 12.63 X1000 (4.8-10.8)
[2019-07-24 08:04] LABS: ALBUMIN 3.5 g/dL (3.5-5.0); CREATININE 4.9 mg/dL (0.5-0.9); PHOSPHORUS 6.7 mg/dL (2.7-4.5); POTASSIUM 4.9 mmol/L (3.5-5.1)
[2019-07-24] MEDS: SYNTHROID PO SCH (08:08)
[2019-07-24] MEDS: HUMULIN R SUBQ SCH ×2 (08:24→11:38)
[2019-07-24] MEDS: ATARAX PO SCH (09:33)
[2019-07-24] MEDS: PLETAL PO SCH (09:33)
[2019-07-24] MEDS: ULTRAM PO SCH (09:34)
[2019-07-24] MEDS: LOPRESSOR PO SCH (09:34)
[2019-07-24] MEDS: SINEQUAN PO SCH (09:35)
[2019-07-24] MEDS: ELIQUIS PO SCH (09:35)
--- NOTE | 2019-07-24 11:43 | GENERAL SURGERY PROGRESS NOTE ---
DATE: 07/24/2019 Patient requiring essentially around the clock Ativan to remain calm. I had a discussion with Dr. Adams who is the patient's primary care physician, and will have a Palliative Care consult. At this point, the patient's stroke and underlying comorbidities, I am unsure how well she is going to do healing and so I agree with a Palliative Care consult. We will continue to monitor while she is in the hospital. The patient also apparently has not been wearing her knee immobilizer. Reinforced the need with the nurses to keep it on. Hopefully, will continue to wear it. cc: Kenny Ruano MD
[2019-07-24] MEDS ORDERED: TYLENOL PR PRN (15:03)
[2019-07-24] MEDS: ATROPINE 1 % OPHTH SOLN SL PRN ×2 (15:31→22:44)
--- NOTE | 2019-07-24 16:19 | PROVIDER PROGRESS NOTE ---
Progress Note Subjective: Pt lying in bed arouses some to painful stimuli. Objective: last recorded vitals. Temperature 97.9, pulse 67, respirations 24, blood pressure 115/81, O2 sat 89% 2 L NC General: Elderly ill white female lying in bed in some respiratory acute distress. HEENT: atraumatic, normocephalic, trachea midline, oral membranes dry SKIN: warm and dry, multiple bruises to upper extremities. Neck: supple, 6 cm jvd observed. Cardiovascular: irreguLar rate and rhythm, unable to get a true pulse Respiratory: unable to obtain oxygen saturation, respiratory at bedside. Abdominal: soft, nontender, nondistended, hypoactive bowel sounds : non inspected Extremities:left band middle digit amputation, dressing to left BKA with a boot stabilizer in place, right great toe necrotic, unable to squeeze my hands. Neurological: Drowsy, unable to follow commands Labs: intake 2892, output zero. Impression: Chronic kidney disease 5D with routine treatment on T,TH,S. She will not receive treatment today due to her condition. Anticipating withdrawal of care. Hypoxemia. Place 100% nonrebreather for comfort. Medications reviewed. Add morphine for oxygen hunger.
[2019-07-24] MEDS: DILAUDID IV PRN (16:43)
[2019-07-25] MEDS: ATIVAN IV PRN ×3 (00:13→13:37)
[2019-07-25] MEDS: ATROPINE 1 % OPHTH SOLN SL PRN ×5 (02:35→22:15)
--- NOTE | 2019-07-25 04:08 | PROGRESS NOTE ---
DATE: 07/24/2019 SUBJECTIVE: The patient is not doing very well. She is in moribund state, extremely agitated, combative and not taking anything by mouth, cyanotic. OBJECTIVE: Vital Signs: Heart rate is 102, blood pressure is getting low, on non-rebreather 93%. General: At this time her condition is deemed to be terminal and appreciated the palliative care consult. LABORATORY DATA: Reviewed. White cell count 12, hematocrit 28, platelets 373,000. Sodium 122, potassium 4.9, BUN 70, creatinine 4.9. ASSESSMENT AND PLAN: 1. End-stage kidney dialysis. Dr. Marquez might hold hemodialysis. 2. Left CVA. 3. Status post below-knee amputation. 4. Left middle Fingeramputation, peripheral artery disease, diabetes, and basically comfort care. We will use the lorazepam, hydromorphone, atropine. 5. DNR. At this time her condition is deemed to be terminal. End of life care. Sridevi palliative care consult is going to talk to the family members and waiting for demise. All the consultants agreed upon her situation is deemed to be grave without any quality of life. cc: MD Kenny Arshad MD MTDD
[2019-07-25] MEDS: DILAUDID IV PRN ×4 (05:27→17:49)
--- NOTE | 2019-07-25 11:53 | GENERAL SURGERY PROGRESS NOTE ---
DATE: 07/25/2019 The patient is doing about the same. She does have some coarse sounds noted, but she is on a Venturi mask, but her sats are in the high 80s. She is resting at least now. She has her knee immobilizer on, and a heel protector on her other leg. Reviewed notes from other physicians. We will go the route of palliative care for right now. Will follow up with their recommendations. Will continue to support her while she is in the hospital. cc: Kenny Ruano MD
[2019-07-26] MEDS: DILAUDID IV PRN ×5 (01:04→23:13)
[2019-07-26] MEDS: ATROPINE 1 % OPHTH SOLN SL PRN ×6 (01:08→23:12)
[2019-07-26] MEDS: ATIVAN IV PRN ×6 (01:15→22:19)
--- NOTE | 2019-07-26 07:12 | PROGRESS NOTE ---
DATE: 07/25/2019 SUBJECTIVE: The patient is in moribund state and hospice care. The patient is comfortable. OBJECTIVE: On examination, temperature is 98 degrees. Tachycardic. Blood pressure is dropping. Dialysis has been stopped. The patient is resting comfortable. ASSESSMENT AND PLAN: CVA on the left side. End-stage kidney disease. PID. Diabetes. Poor prognosis. Continue palliative care which includes morphine, Ativan, and scopolamine patch. Continue present treatment. Living will. DNR. Waiting for demise. cc: MD Kenny Arshad MD
[2019-07-26] MEDS ORDERED: TRANSDERM-SCOP TD SCH (10:15)
--- NOTE | 2019-07-26 12:26 | GENERAL SURGERY PROGRESS NOTE ---
DATE: 07/26/2019 SUBJECTIVE: Reviewed palliative care notes and discussed case with the charge nurse. The patient is still having significant secretions and has had episodes of low blood pressure during the day. At this point, continue palliative care and monitor while she is in the hospital. cc: Kenny Ruano MD
[2019-07-27] MEDS: ATIVAN IV PRN ×3 (00:43→06:56)
[2019-07-27] MEDS: ATROPINE 1 % OPHTH SOLN SL PRN ×6 (00:43→09:56)
[2019-07-27] MEDS: DILAUDID IV PRN ×3 (01:35→09:56)
--- NOTE | 2019-07-27 05:03 | PROGRESS NOTE ---
DATE: 07/26/2019 SUBJECTIVE: The patient is still restless and agitated. I initiated comfort residential health, and her symptoms are controlled. REVIEW OF SYSTEMS: None reported. PHYSICAL EXAMINATION: Temperature is 98 degrees. Tachycardic. Vitals are stable. Crackles are noted. Nurses are at bedside. Physical exam with no change. ASSESSMENT AND PLAN: End of life with underlying stroke, diabetes, PAD, and chronic atrial fibrillation. Prognosis is poor. Comfort care. Palliative services, oxygen, scopolamine, atropine patches, morphine and Ativan increase as needed. I stopped the dialysis and waiting for demise. Continue supportive care. LEVEL OF DOCUMENTATION: 25 minutes. cc: MD Kenny Arshad MD
[2019-07-27 07:58] VITALS: BP 61/25
--- NOTE | 2019-07-27 13:40 | GENERAL SURGERY PROGRESS NOTE ---
DATE: 07/27/2019 The patient is having episodes of apnea when they suction, become increasingly difficult to suction her. She is on palliative care. We will continue comfort care measures and monitor. cc: Kenny Ruano MD
--- NOTE | 2019-07-31 13:46 | DISCHARGE SUMMARY ---
ADMISSION DATE: 07/16/2019 DISCHARGE DATE: 07/27/2019 ADMITTING DIAGNOSIS: Peripheral vascular disease. DISCHARGE DIAGNOSES: 1. Status post aauwq-qzr-vhfi amputation on the left. 2. Status post left 3rd digit distal ray amputation. 3. Large stroke. 4. Comfort care measures. ADMITTING PHYSICIAN: Dr. Kenny Ruano CONSULTATIONS: 1. Dr. Aretha Adams for medical management. 2. Dr. Duncan for Cardiology for history of atrial fibrillation. 3. Dr. Marquez for history of chronic kidney disease and end-stage renal disease requiring dialysis. 4. Dr. Ugarte for Neurology for cerebrovascular accident. PROCEDURES: 07/16 patient underwent a left cmdvj-ikj-pykh amputation and left 3rd finger distal ray amputation. BRIEF HISTORY/COURSE OF STAY: 78-year-old female with multiple medical comorbidities who was admitted on 07/16/2019 for planned bcczy-yyl-wrwy amputation. She had several comorbidities. She was admitted initially tolerated the procedure. We did get Cardiology for evaluation of her chronic atrial fibrillation. She apparently by report had been on Eliquis, but had not been taking it. We had consultations with Dr. Adams with her primary care physician for medical management and Dr. Duncan for chronic atrial fibrillation. She was restarted on anticoagulation. We also did get Dr. Marquez involved for her kidney disease. On 07/19 it was noted that patient was very altered. A stat CT scan was done which showed a subacute infarct in the posterior parietal and temporal lobes on the left. The patient at this point, did not have any real meaningful return of her mental status and continued to decline. We did get Dr. Ugarte with Neurology involved. He did not think she was a candidate for aggressive intervention. She had a repeat CT scan done the day later, which showed evolving large left cerebral hemispheric stroke and she continued decline. There was extensive discussions had with the patient's family mostly done by Dr. Adams and a decision was made to make the patient comfort care. All aggressive interventions were withdrawn secondary to patient being essentially unresponsive and altered. On 07/27/2019 after having initiate comfort care measures patient was found to have no pulse. The nurses documented this and was declared at 10:42 on 07/27/2019. At this time, arrangements were made for patient to be transferred to a home. DISCHARGE CONDITION: Comfort care and . DISPOSITION: and body transferred to home. cc: Kenny Ruano MD
== END 2019-07-27 10:42 | disposition expired | DRG 239 ==
LOC: SURHOLD 03:42 → 4N 08:09 → 2N 14:45 → 4N 07-22 22:10
PROVIDERS: ADMIT Surgery; ATTEND Surgery